=== PATIENT | male | born 1945 | race Caucasian/White ===

== ENCOUNTER 2020-08-25 12:39 | Outpatient (REF) | payer MEDICARE, OTHER, SELFPAY ==
--- NOTE | 2020-08-25 12:51 | MR_ITS ---
MRI OF THE BRAIN WITHOUT IV CONTRAST INDICATION: Dementia with behavioral disturbance. COMPARISON: Brain MRI 12/03/2013. TECHNIQUE: Multiplanar multisequence MR imaging of the brain was obtained without IV contrast. FINDINGS: There is no hydrocephalus, extra-axial surface collection, or herniation. There is global cerebral volume loss and there is mild chronic microangiopathy. The major flow voids at the skull base are preserved. There is no acute infarct on diffusion-weighted imaging. There is no intracranial hemorrhage on the gradient recalled echo acquisition. The midline structures are normal. The cerebellar tonsils are normally positioned. The cerebellum and brainstem are normal. The craniocervical junction is normal. Osseous marrow signal intensity is homogenous. The visualized soft tissues are unremarkable. IMPRESSION: - No acute intracranial findings. - There is global cerebral volume loss and there is mild chronic microangiopathy.
== END 2020-08-25 12:40 | disposition home or self-care (01) ==
LOC: HO.MRI 12:39
PROVIDERS: PCP Internal Medicine; Visit Provider Psychiatry & Neurology Neurology
DX: F03.91 Unspecified dementia, unspecified severity, with behavioral disturbance (principal)
CPT/HCPCS: 70551

== ENCOUNTER 2020-12-24 17:38 | Emergency (ER) | payer MEDICARE, SELFPAY ==
[2020-12-24 17:46] VITALS: BP 143/70; PULSE 98; RESP 18; TEMP 37.3; O2SAT 95; BMI 22.4
[2020-12-24 18:00] VITALS: BP 143/70; PULSE 98; RESP 18; TEMP 37.3; O2SAT 95
--- NOTE | 2020-12-24 18:02 | CT_ITS ---
EXAMINATION: CT HEAD WITHOUT CONTRAST CLINICAL INFORMATION: Mass or bleed ? COMPARISON: MRI dated 08/25/2020 TECHNIQUE: Contiguous axial imaging was performed from the skull base to vertex without intravenous administration of contrast. This CT examination was performed using dose optimization techniques as appropriate, variously including the following: *Automated exposure control *Adjustment of mA and/or kV according to patient size (this includes techniques or standardized protocols for targeted exams where dose is matched to indication/reason for exam; i.e. extremities or head) *Use of iterative reconstruction technique DLP: 692 mGy-cm FINDINGS: There is no evidence of acute intracranial hemorrhage or territorial infarction. No abnormal mass effect or midline shift is seen. Roach to white matter differentiation is well preserved. No extra-axial fluid collections are identified. A few foci of hypoattenuation in the subcortical and periventricular white matter are most consistent with chronic microangiopathic changes. Moderate enlargement of the ventricles, sulci, and extra-axial CSF spaces is indicative of parenchymal volume loss. The osseous structures and soft tissues are normal. The mastoid air cells and visualized portions of the paranasal sinuses are well aerated. CT/CT head/brain wo con IMPRESSION: No acute intracranial pathology. Global cerebral volume loss and mild chronic microangiopathy.
[2020-12-24 18:10] VITALS: BP 143/70; PULSE 98; RESP 16; TEMP 37.3; O2SAT 95
--- NOTE | 2020-12-24 18:14 | ECG_ITS ---
Test Reason : MEDICAL CLEAR Blood Pressure : / mmHG Vent. Rate : 064 BPM Atrial Rate : 064 BPM P-R Int : 194 ms QRS Dur : 086 ms QT Int : 412 ms P-R-T Axes : 049 -03 028 degrees QTc Int : 425 ms Normal sinus rhythm Normal ECG When compared with ECG of 31-OCT-2013 16:39, No significant change was found Referred By: Pritesh Farris Electronically Signed By:BENJAMIN STOCK
[2020-12-24 18:52] LABS: MANUAL DIFF FLAG NO
[2020-12-24 18:56] LABS: Glucose Urine UA NEG (NEG); Leukocyte Esterase Urine NEG (NEG); Nitrite Urine NEG (NEG); Specific Gravity - Urine 1.025 (1.005-1.025); Urine Blood NEG (NEG); Urine Ketones 5 MG/DL (NEG); Urine Protein NEG (NEG-TRACE)
[2020-12-24 18:57] LABS: Appearance Urine CLEAR; Color Urine YELLOW
[2020-12-24 19:01] LABS: INTERNATIONAL NORM RATIO 0.9 (0.9-1.1); Prothrombin Time 11.1 SEC (10.8-13.0)
[2020-12-24 19:04] LABS: Partial Thromboplastin Time 27.1 SEC (24.1-38.0)
[2020-12-24 19:06] LABS: Basophils Percent Auto 0.7 % (0-2); Eosinophils Absolute Auto 0.1 X10*3/uL (0.0-0.4); Eosinophils Percent Auto 1.1 % (0-4); Hematocrit 43.5 % (42-52); Hemoglobin 14.8 g/dl (14.0-18.0); Imm Gran Abs Auto 0.03 X10*3/uL (0.00-0.03); Imm Gran Pct Auto 0.7 % (0.0-0.4); Lymphocytes Absolute Auto 1.2 X10*3/uL (1.2-4.9); Lymphocytes Percent Auto 26.3 % (20-40); Mean Corpuscular Hemoglobin 30.4 pg (27.0-33.0); Mean Corpuscular Volume 89.3 fL (80-98); Mean Platelet Volume 9.5 fL (9.4-12.4); Monocytes Absolute Auto 0.4 X10*3/uL (0.1-1.2); Monocytes Percent Auto 9.6 % (2-11); Neutrophils Absolute Auto 2.8 X10*3/uL (2.0-8.3); Neutrophils Percent Auto 61.6 % (45-73); Platelet Count 216 X10*3/uL (160-400); Red Blood Count 4.87 X10*6/uL (4.60-5.80); Red Cell Distribution Width 12.5 % (11.0-16.0); White Blood Count 4.6 X10*3/uL (4.8-10.8)
[2020-12-24 19:18] LABS: Ethanol < 10 mg/dL
--- NOTE | 2020-12-24 19:18 | PC.NURSE ---
Patient in his bed resting quietly, patient disoriented, pleasant and clam, Ruma called confirmed medication/med recs completed/provider notified/pending MAR update, will continue to monitor.
[2020-12-24 19:21] LABS: Amphetamine Screen Urine Not Detected (Not Detect); Barbiturates, Urine Not Detected (Not Detect); Benzodiazepines Screen Urine Not Detected (Not Detect); Cannabinoid Screen Urine Not Detected (Not Detect); Cocaine Screen Urine Not Detected (Not Detect); Opiate Screen Urine Not Detected (Not Detect); Phencyclidine Screen Urine Not Detected (Not Detect)
--- NOTE | 2020-12-24 19:22 | XR_ITS ---
EXAMINATION: XR CHEST CLINICAL INFORMATION: Pneumonia? COMPARISON: None TECHNIQUE: 2 views of the chest were obtained. FINDINGS: There is streaky opacity in the retrocardiac left lower lobe which may represent atelectasis, aspiration, or pneumonia. Lung volumes are low. No pleural effusion or pneumothorax. Tortuous aorta. Normal heart size. Multilevel degenerative changes of the thoracolumbar spine are present. XR/XR chest 2V IMPRESSION: There is retrocardiac left lower lobe opacity which may represent atelectasis, aspiration, or pneumonia.
[2020-12-24 19:23] LABS: Alanine Aminotransferase 31 U/L (0-40); Albumin Level 4.4 g/dL (3.5-5.0); Alkaline Phosphatase 79 U/L (39-117); Anion Gap 16 (12-20); Aspartate Amino Transferase 44 U/L (5-37); Bilirubin Direct 0.4 mg/dL (0.0-0.5); Blood Urea Nitrogen 18 mg/dL (9-16); Calcium 9.2 mg/dL (8.4-10.2); Carbon Dioxide 25 mmol/L (22-29); Chloride 106 mmol/L (96-108); Creatinine Clr Calc Pharmacy 45.2; Estimated Glomerular Filt Rate 59; Glucose Random 104 mg/dL (60-115); Potassium 4.2 mmol/L (3.3-5.1); Sodium 143 mmol/L (135-145)
[2020-12-24 19:34] LABS: COVID-19 Test Negative (Negative); IDNOW Serial# 9DD0AD1C
[2020-12-24 19:45] LABS: Ammonia 43 umol/L (13-55)
--- NOTE | 2020-12-24 20:45 | ED_ITS ---
HPI - Psych General Chief Complaint: Psychiatric Symptoms Stated Complaint: CRISIS Time Seen by Provider: 12/24/20 19:22 Source: family and EMS Mode of arrival: EMS History of Present Illness HPI Narrative: Patient brought to the for worsening dementia. As per who spoke with care team consulted Nichelle and as per EMS report the past few weeks patient has been leaving the house wandering into the streets. Patient has gone to neighbor's apartment is making negative statements toward his and also going to the police station to have conversation. Denies patient being aggressive towards family or having any physical complaints. Related Data Home Medications Medication Instructions Recorded Confirmed cyanocobalamin (vitamin B-12) 1 tab PO DAILY 12/24/20 12/24/20 quetiapine 1 tab PO BID 12/24/20 12/24/20 rosuvastatin 1 tab PO DAILY 12/24/20 12/24/20 sertraline 1 tab PO DAILY 12/24/20 12/24/20 Previous Rx's Medication Instructions Recorded amoxicillin-pot clavulanate 1 tab PO Q12H 7 Days #14 tab 12/24/20 [Augmentin] azithromycin See Rx Instructions .ROUTE 12/24/20 .COMPLEX #6 tab Allergies Allergy/AdvReac Type Severity Reaction Status Date / Time bee pollen [BEE STINGS] Allergy Unknown ANAPHYLAXIS Unverified 08/07/20 14:34 simvastatin [Zocor] Allergy Unknown Verified 05/01/14 00:00 From LIPITOR Allergy Unknown LIVER Uncoded 08/07/20 14:34 BREAK DOWN Review of Systems Review of Systems: Yes all other systems are reviewed and are negative Constitutional: Constitutional: Reports as per HPI and Reports no additional constitutional complaints Eyes: Eyes: Reports as per HPI and Reports no additional eye complaints ENT: Reports system reviewed and no additional complaints, except as documented and Reports as per HPI Cardiovascular: Cardiovascular: Reports as per HPI and Reports no additional cardiovascular complaints Respiratory: Respiratory: Reports as per HPI and Reports no additional respiratory complaints Gastrointestinal: Gastrointestinal: Reports as per HPI and Reports no additional gastrointestinal complaints Genitourinary: Genitourinary: Reports no additional male genitourinary complaints and Reports as per HPI Musculoskeletal: Musculoskeletal: Reports no additional musculoskeletal complaints and Reports as per HPI Neurologic: Reports system reviewed and no additional complaints, except as documented and Reports as per HPI Psychiatric: Psychiatric: Reports no additional psychiatric complaints and Reports as per HPI [facility] Social History Social History Alcohol intake: unknown Smoking Status: Unknown if ever smoked Use of substances other than those prescribed or required for medical reasons: Unknown Substance Use Type: Unknown Advance Directives: No Advance Directives Information Provided: Yes Physical Exam Vital Signs: Vital Signs: Last Vital Signs Temp 97.6 F 12/24/20 22:01 Pulse 69 12/24/20 22:01 Resp 18 12/24/20 22:01 BP 124/63 12/24/20 22:01 Pulse Ox 96 12/24/20 22:01 Body Mass Index 22.4 Const: Other: Patient knows place, name, birthday, and president. Patient knows day and month, but not year. This is patient's baseline General: cooperative, healthy appearing, comfortable, no acute distress, well developed, alert and awake HENMT: Head: Yes normal to inspection, Yes No palpable skull fracture present, Yes normocephalic, Yes atraumatic, No Garza's sign, No contusion, No cranial bruits, No hematoma, No laceration, No occipital foramen tenderness, No palpable skull fracture and No raccoon eyes Eyes: General: appearance normal, both eyes and all related structures Neck: Neck: Yes normal visual inspection, Yes full ROM, Yes no lymphadenopathy, Yes no meningeal signs, Yes trachea midline, Yes supple and No tender Chest: Chest palpation & inspection: normal inspection of the chest and normal palpation of entire chest wall Resp: Effort & Inspection: normal respiratory effort and able to speak in complete sentences Auscultation: clear to auscultation bilaterally Cardio: Jugular venous distension: no JVD Heart sounds: S1 normal heart sound present and S2 normal heart sound present GI: Inspection: Yes normal to inspection and No abdominal wall ecchymosis Palpation (GI): Soft to palpation, not firm, nontender, no guarding and not rigid : General: No CVA tenderness and Yes no CVA tenderness Back/Spine/Pelvis: Back: no CVA tenderness, No CVA tenderness and No back tenderness Skin: General skin exam: no rashes or lesions noted and elasticity normal Neuro: Other: Patient is at baseline mentally. Negative for any neuro deficit. Negative for slurred speech. Negative facial droop. Negative for any drift. All extremities and equal strength. Normal gait General: no meningeal signs and CN's II-XI intact bilaterally Cranial nerves: Yes CN's II-XII intact bilaterally Extrem: General: Yes normal to inspection and Yes full ROM Psych: Appearance: grossly normal, well kempt and not disheveled Course Course Course Narrative: Will do basic labs include pneumonia and UA to rule out any sort and cephalopathy or UTI. Patient have head CT scan. Patient has baseline EKG. Patient does not need troponin. This is not a cardiac event. Most likely this is patient's worsening dementia. Reevaluation(s) Reevaluation #1: Patient UA negative for UTI. Labs came back normal. Ammonia is negative. Negative for elevated white blood cell count. Head CT came back negative for any mass or stroke. Chest x-ray shows possible pneumonia. Alcohol and U tox came back negative. Care team consulted joseline Steward and case management Maribell spoke with and son who states they do not want patient to be placed in any facility or [facility]. They feel comfortable and would like patient to be returned home. Maribell and Nichelle found external services to help with caring for patient. Once again and son does not want patient to be placed in any facility or [facility]. Plan is to discharge after EKG. Time: 21:17 MDM - Psych MDM Narrative Medical decision making narrative: Dementia. Pneumonia Lab Data Result diagrams: 12/24/20 18:42 12/24/20 18:42 Labs: Lab Results 12/24/20 12/24/20 12/24/20 Range/Units 18:42 18:42 18:42 WBC 4.6 L (4.8-10.8) X10*3/uL RBC 4.87 (4.60-5.80) X10*6/uL Hgb 14.8 (14.0-18.0) g/dl Hct 43.5 (42-52) % MCV 89.3 (80-98) fL MCH 30.4 (27.0-33.0) pg MCHC 34.0 (31.0-36.0) g/dl RDW 12.5 (11.0-16.0) % Plt Count 216 (160-400) X10*3/uL MPV 9.5 (9.4-12.4) fL Immature Gran % (Auto) 0.7 H (0.0-0.4) % Neut % (Auto) 61.6 (45-73) % Lymph % (Auto) 26.3 (20-40) % Winston % (Auto) 9.6 (2-11) % Eos % (Auto) 1.1 (0-4) % Baso % (Auto) 0.7 (0-2) % Lymph # (Auto) 1.2 (1.2-4.9) X10*3/uL Winston # (Auto) 0.4 (0.1-1.2) X10*3/uL Eos # (Auto) 0.1 (0.0-0.4) X10*3/uL Baso # (Auto) 0.0 (0.0-0.2) X10*3/uL Abs Immat Gran (auto) 0.03 (0.00-0.03) X10*3/uL Absolute Neuts (auto) 2.8 (2.0-8.3) X10*3/uL Absolute Nucleated RBC 0.000 (0.0-0.012) X10*3/uL Nucleated RBC % (auto) 0.0 (0.0-0.2) /100WBC PT 11.1 (10.8-13.0) SEC INR 0.9 (0.9-1.1) APTT 27.1 (24.1-38.0) SEC Sodium 143 (135-145) mmol/L Potassium 4.2 (3.3-5.1) mmol/L Chloride 106 (96-108) mmol/L Carbon Dioxide 25 (22-29) mmol/L Anion Gap 16 (12-20) BUN 18 H (9-16) mg/dL Creatinine 1.20 (0.5-1.4) mg/dL Estim Creat Clear Calc 45.2 Estimated GFR 59 Random Glucose 104 (60-115) mg/dL Calcium 9.2 (8.4-10.2) mg/dL Total Bilirubin 1.0 (0.0-1.0) mg/dL Direct Bilirubin 0.4 (0.0-0.5) mg/dL AST 44 H (5-37) U/L ALT 31 (0-40) U/L Alkaline Phosphatase 79 (39-117) U/L Ammonia (13-55) umol/L Total Protein 7.0 (6.5-8.0) g/dL Albumin 4.4 (3.5-5.0) g/dL Urine Color Urine Appearance Urine pH (5.0-8.0) Ur Specific [place] (1.005-1.025) Urine Protein (NEG-TRACE) MG/DL Urine Glucose (UA) (NEG) MG/DL Urine Ketones (NEG) MG/DL Urine Blood (NEG) Urine Nitrite (NEG) Ur Leukocyte Esterase (NEG) Urine Opiates Screen (Not Detect) Ur Barbiturates Screen (Not Detect) Ur Phencyclidine Scrn (Not Detect) Ur Amphetamines Screen (Not Detect) U Benzodiazepines Scrn (Not Detect) Urine Cocaine Screen (Not Detect) U Marijuana (THC) Screen (Not Detect) Ethyl Alcohol mg/dL COVID-19 (SAYDA) (Negative) COVID-19 Clin Com 12/24/20 12/24/20 12/24/20 Range/Units 18:42 18:50 18:53 WBC (4.8-10.8) X10*3/uL RBC (4.60-5.80) X10*6/uL Hgb (14.0-18.0) g/dl Hct (42-52) % MCV (80-98) fL MCH (27.0-33.0) pg MCHC (31.0-36.0) g/dl RDW (11.0-16.0) % Plt Count (160-400) X10*3/uL MPV (9.4-12.4) fL Immature Gran % (Auto) (0.0-0.4) % Neut % (Auto) (45-73) % Lymph % (Auto) (20-40) % Winston % (Auto) (2-11) % Eos % (Auto) (0-4) % Baso % (Auto) (0-2) % Lymph # (Auto) (1.2-4.9) X10*3/uL Winston # (Auto) (0.1-1.2) X10*3/uL Eos # (Auto) (0.0-0.4) X10*3/uL Baso # (Auto) (0.0-0.2) X10*3/uL Abs Immat Gran (auto) (0.00-0.03) X10*3/uL Absolute Neuts (auto) (2.0-8.3) X10*3/uL Absolute Nucleated RBC (0.0-0.012) X10*3/uL Nucleated RBC % (auto) (0.0-0.2) /100WBC PT (10.8-13.0) SEC INR (0.9-1.1) APTT (24.1-38.0) SEC Sodium (135-145) mmol/L Potassium (3.3-5.1) mmol/L Chloride (96-108) mmol/L Carbon Dioxide (22-29) mmol/L Anion Gap (12-20) BUN (9-16) mg/dL Creatinine (0.5-1.4) mg/dL Estim Creat Clear Calc Estimated GFR Random Glucose (60-115) mg/dL Calcium (8.4-10.2) mg/dL Total Bilirubin (0.0-1.0) mg/dL Direct Bilirubin (0.0-0.5) mg/dL AST (5-37) U/L ALT (0-40) U/L Alkaline Phosphatase (39-117) U/L Ammonia (13-55) umol/L Total Protein (6.5-8.0) g/dL Albumin (3.5-5.0) g/dL Urine Color YELLOW Urine Appearance CLEAR Urine pH 6.0 (5.0-8.0) Ur Specific [place] 1.025 (1.005-1.025) Urine Protein NEG (NEG-TRACE) MG/DL Urine Glucose (UA) NEG (NEG) MG/DL Urine Ketones 5 (NEG) MG/DL Urine Blood NEG (NEG) Urine Nitrite NEG (NEG) Ur Leukocyte Esterase NEG (NEG) Urine Opiates Screen Not Detected (Not Detect) Ur Barbiturates Screen Not Detected (Not Detect) Ur Phencyclidine Scrn Not Detected (Not Detect) Ur Amphetamines Screen Not Detected (Not Detect) U Benzodiazepines Scrn Not Detected (Not Detect) Urine Cocaine Screen Not Detected (Not Detect) U Marijuana (THC) Screen Not Detected (Not Detect) Ethyl Alcohol < 10 mg/dL COVID-19 (SAYDA) (Negative) COVID-19 Clin Com 12/24/20 12/24/20 Range/Units 19:08 19:12 WBC (4.8-10.8) X10*3/uL RBC (4.60-5.80) X10*6/uL Hgb (14.0-18.0) g/dl Hct (42-52) % MCV (80-98) fL MCH (27.0-33.0) pg MCHC (31.0-36.0) g/dl RDW (11.0-16.0) % Plt Count (160-400) X10*3/uL MPV (9.4-12.4) fL Immature Gran % (Auto) (0.0-0.4) % Neut % (Auto) (45-73) % Lymph % (Auto) (20-40) % Winston % (Auto) (2-11) % Eos % (Auto) (0-4) % Baso % (Auto) (0-2) % Lymph # (Auto) (1.2-4.9) X10*3/uL Winston # (Auto) (0.1-1.2) X10*3/uL Eos # (Auto) (0.0-0.4) X10*3/uL Baso # (Auto) (0.0-0.2) X10*3/uL Abs Immat Gran (auto) (0.00-0.03) X10*3/uL Absolute Neuts (auto) (2.0-8.3) X10*3/uL Absolute Nucleated RBC (0.0-0.012) X10*3/uL Nucleated RBC % (auto) (0.0-0.2) /100WBC PT (10.8-13.0) SEC INR (0.9-1.1) APTT (24.1-38.0) SEC Sodium (135-145) mmol/L Potassium (3.3-5.1) mmol/L Chloride (96-108) mmol/L Carbon Dioxide (22-29) mmol/L Anion Gap (12-20) BUN (9-16) mg/dL Creatinine (0.5-1.4) mg/dL Estim Creat Clear Calc Estimated GFR Random Glucose (60-115) mg/dL Calcium (8.4-10.2) mg/dL Total Bilirubin (0.0-1.0) mg/dL Direct Bilirubin (0.0-0.5) mg/dL AST (5-37) U/L ALT (0-40) U/L Alkaline Phosphatase (39-117) U/L Ammonia 43 (13-55) umol/L Total Protein (6.5-8.0) g/dL Albumin (3.5-5.0) g/dL Urine Color Urine Appearance Urine pH (5.0-8.0) Ur Specific [place] (1.005-1.025) Urine Protein (NEG-TRACE) MG/DL Urine Glucose (UA) (NEG) MG/DL Urine Ketones (NEG) MG/DL Urine Blood (NEG) Urine Nitrite (NEG) Ur Leukocyte Esterase (NEG) Urine Opiates Screen (Not Detect) Ur Barbiturates Screen (Not Detect) Ur Phencyclidine Scrn (Not Detect) Ur Amphetamines Screen (Not Detect) U Benzodiazepines Scrn (Not Detect) Urine Cocaine Screen (Not Detect) U Marijuana (THC) Screen (Not Detect) Ethyl Alcohol mg/dL COVID-19 (SAYDA) Negative (Negative) COVID-19 Clin Com See Note ECG Data Interpretation: Normal sinus rhythm. Ventricular rate 64. Pr interval 194. QRS 86. QTC 425. Negative STEMI. Normal EKG Discharge Plan Discharge Clinical Impression: Dementia, Pneumonia Patient Disposition: Home, Self-Care Instructions: Dementia (ED), Pneumonia (ED) Additional Instructions: Return to the ED for slurred speech, loss of vision, paralysis of extremity, chest pain, shortness of breath, headache, weakness, altered mental status, lethargic, or any other concerning symptoms Prescriptions: New amoxicillin-pot clavulanate [Augmentin] 875-125 mg tablet 1 tab PO Q12H 7 Days Qty: 14 RF: 0 azithromycin 250 mg tablet See Rx Instructions .ROUTE .COMPLEX Qty: 6 RF: 0 No Action quetiapine 25 mg tablet 1 tab PO BID RF: 0 sertraline 100 mg tablet 1 tab PO DAILY RF: 0 cyanocobalamin (vitamin B-12) 1,000 mcg tablet 1 tab PO DAILY RF: 0 rosuvastatin 10 mg tablet 1 tab PO DAILY RF: 0 Interventions: ED Discharge Assessment Last Done: 12/25/20 06:28 Discharge Date/Time: 12/25/20 06:45 Print Language: Georgian
--- NOTE | 2020-12-24 20:51 | MHC.CARE ---
CARE Team reaches out to pt's at the request of ANDRÉS Jonas in order to gather additional information regarding concerns which led up to pt coming to the ED. , Ruma and son, Kayode provide information. Today, pt went and knocked on the neighbor's door, was confused and not making sense, speaking poorly of his . He has reportedly been badgering spouse non stop, and following her from room to room. He has a fixed belief that she left him for a long period of time in the past, and this is not based in reality. Ruma states that last week, pt walked several miles away to the local police department in inclement weather. She states that she has since filled out a questionnaire and provided his picture to police in case he continues to elope. CARE Team offers explanation of geriatric psych unit, and family not interested in this level of care at this time, stating that they want pt to return home. They have many questions about senior care care and financial planning. CARE Team speaks with Maribell from case management, who agrees to call the family in order to discuss resources. Ruma is planning on contacting Dr. Gutierrez tomorrow regarding medication adjustments.
[2020-12-24 22:01] VITALS: BP 124/63; PULSE 69; RESP 18; TEMP 36.4; O2SAT 96
[2020-12-24] MEDS: Azithromycin 500 MG TABLET PO (22:26)
[2020-12-24] MEDS: QUEtiapine Fumarate 25 MG TABLET PO (22:26)
[2020-12-24] MEDS: Amoxicillin/Potassium Clav 875 MG TABLET PO (22:26)
--- NOTE | 2020-12-24 22:30 | PC.NURSE ---
Patient was informed that he has a pneumonia, abt administered as ordered with scheduled seroquel 25 mg, patient family aware will come to worm picker patient tomorrow at 5 am, denied distress at this time, will continue to monitor.
== END 2020-12-25 06:45 | disposition home or self-care (01) ==
PROVIDERS: Physician Assistant; Emergency Provider Emergency Medicine
DX: F03.90 Unspecified dementia, unspecified severity, without behavioral disturbance, psychotic disturbance, mood disturbance, and anxiety (principal); J18.9 Pneumonia, unspecified organism; Z20.822 Contact with and (suspected) exposure to COVID-19; Z79.899 Other long term (current) drug therapy
CPT/HCPCS: 36415; 70450; 71046; 80053; 80076; 80307; 80320; 81003; 82140; 82248; 85025; 85610; 85730; 87635; 93005; 99285

== ENCOUNTER 2021-12-31 11:29 | Emergency (ER) | payer MEDICARE, SELFPAY ==
--- NOTE | ~2021-12-31 | XR_ITS ---
EXAMINATION: XR ABDOMEN KUB CLINICAL INDICATION: Constipation COMPARISON: None TECHNIQUE: AP view of the abdomen. FINDINGS: Normal bowel gas pattern. No dilated loops of bowel. Scattered gas and stool throughout the colon. No significant abnormal colonic stool burden. Lung bases are clear. No acute osseous abnormality with diffuse degenerative changes of the spine. No suspicious calcification. XR/XR KUB IMPRESSION: Normal bowel gas pattern without significant abnormal colonic stool burden.
[2021-12-31 12:21] VITALS: BP 136/73; PULSE 71; RESP 18; TEMP 36.8; O2SAT 96; BMI 25.6
[2021-12-31 13:02] LABS: COVID-19 Test Negative (Negative)
[2021-12-31 13:09] LABS: Alanine Aminotransferase 18 U/L (0-40); Albumin Level 4.3 g/dL (3.5-5.0); Alkaline Phosphatase 83 U/L (39-117); Anion Gap 20 (12-20); Aspartate Amino Transferase 32 U/L (5-37); Bilirubin Total 0.8 mg/dL (0.0-1.0); Blood Urea Nitrogen 15 mg/dL (9-16); Calcium 9.4 mg/dL (8.4-10.2); Carbon Dioxide 22 mmol/L (22-29); Chloride 99 mmol/L (96-108); Creatinine Clr Calc Pharmacy 35.7; Estimated Glomerular Filt Rate 50; Glucose Random 102 mg/dL (60-115); Potassium 3.7 mmol/L (3.3-5.1); Sodium 137 mmol/L (135-145); Total Protein 7.1 g/dL (6.5-8.0)
== END 2021-12-31 17:00 | disposition left against medical advice (07) ==
PROVIDERS: Emergency Provider Emergency Medicine; PCP Internal Medicine
DX: K59.00 Constipation, unspecified (principal); Z20.822 Contact with and (suspected) exposure to COVID-19; Z79.899 Other long term (current) drug therapy
CPT/HCPCS: 74018; 80053; 87635; 99281; 99283

== ENCOUNTER 2022-01-01 09:58 | Emergency (ER) | payer MEDICARE, SELFPAY ==
--- NOTE | ~2022-01-01 | CT_ITS ---
EXAMINATION: CT HEAD WITHOUT CONTRAST CLINICAL INFORMATION: Altered mental status COMPARISON: Previous head CT scans most recent December 2020 and brain MRI most recent August 2020 TECHNIQUE: Contiguous axial imaging was performed from the skull base to vertex without intravenous administration of contrast. This CT examination was performed using dose optimization techniques as appropriate, variously including the following: *Automated exposure control *Adjustment of mA and/or kV according to patient size (this includes techniques or standardized protocols for targeted exams where dose is matched to indication/reason for exam; i.e. extremities or head) *Use of iterative reconstruction technique DLP: 655 mGy-cm FINDINGS: There is no evidence of an extra-axial collection. There is no evidence of intra-axial or extra-axial hemorrhage. The ventricles and extra-axial CSF spaces are prominent suggestive of generalized atrophy. There is nonspecific periventricular white matter disease. No mass, mass effect or infarct is seen. Review of bone windows is normal. No skull fracture is seen. Visualized paranasal sinuses, mastoid air cells and middle ears are clear. CT/CT head/brain wo con IMPRESSION: No acute findings. Generalized atrophy and nonspecific periventricular white matter disease similar to previous exams.
--- NOTE | ~2022-01-01 | CT_ITS ---
EXAMINATION: CT ABDOMEN AND PELVIS WITHOUT CONTRAST CLINICAL INFORMATION: Constipation COMPARISON: Previous KUB from yesterday TECHNIQUE: Multidetector volumetric imaging was performed from the superior aspect of the liver through the pubic symphysis. Sagittal and coronal reformatted images were obtained on the technologist's workstation. This CT examination was performed using dose optimization techniques as appropriate, variously including the following: *Automated exposure control *Adjustment of mA and/or kV according to patient size (this includes techniques or standardized protocols for targeted exams where dose is matched to indication/reason for exam; i.e. extremities or head) *Use of iterative reconstruction technique Exam is limited due to motion artifact. DLP: 572 mGy-cm FINDINGS: LUNG BASES: The visualized lung bases are unremarkable. LIVER, GALLBLADDER, AND BILIARY TREE: The liver is normal in size, shape, and attenuation. No focal hepatic lesion or biliary ductal dilatation is present. The gallbladder is unremarkable with no evidence of radiopaque gallstones, gallbladder wall thickening, or obvious pericholecystic inflammatory changes. PANCREAS: Unremarkable. SPLEEN: Unremarkable. ADRENAL GLANDS: Unremarkable. KIDNEYS AND URETERS: The kidneys are normal in size, shape, and attenuation. No hydronephrosis, hydroureter, or calculi seen. No perinephric stranding. BLADDER: Unremarkable. GASTROINTESTINAL TRACT: There is diverticulosis of the colon. No evidence of diverticulitis is seen. There is stool in the distal colon suggestive of constipation. ABDOMINAL WALL: There is a small left inguinal hernia containing fat. LYMPH NODES: Normal. VASCULAR: There is evidence of atherosclerotic disease. PELVIC VISCERA: Unremarkable. OSSEOUS STRUCTURES: There are degenerative changes of the spine. CT/CT abdomen pelvis wo con IMPRESSION: Limited exam due to motion artifact. Diverticulosis. No evidence of diverticulitis. Stool in the distal colon suggestive of constipation. No evidence of obstruction. Left inguinal hernia containing fat. Fleischner guidelines were followed.
[2022-01-01 10:05] VITALS: BP 144/84
[2022-01-01 10:07] VITALS: BP 134/66; PULSE 63; RESP 16; TEMP 36.8; O2SAT 99; BMI 26.5
[2022-01-01 10:17] VITALS: BP 134/66; PULSE 63; RESP 16; TEMP 36.8; O2SAT 99
--- NOTE | 2022-01-01 10:21 | PC.NURSE ---
WENT IN TO DO PATIENT ASSESSMENT, PT BECAME COMBATIVE AND WOULD NOT LET US CHANGE IN TO HOSPITAL ATTIRE FOR PROVIDER EXAM DR STONE IS AWARE AND WILL CONTACT PT FAMILY
--- NOTE | 2022-01-01 11:03 | ED.GENADULT ---
HPI - General Adult General Chief complaint: General Medical Stated complaint: ?constipation Time Seen by Provider: 01/01/22 10:04 History of Present Illness HPI narrative: Patient is a 76-year-old male with a history of advanced dementia. Sent in by family because of decreased p.o. intake. No bowel movement for last 2 weeks. Patient was seen in the emergency department yesterday had labs drawn. Subsequently left prior to being evaluated by provider. Patient sent in by ambulance this time. Related Data Home Medications Medication Instructions Recorded Confirmed cyanocobalamin (vitamin B-12) 1 tab PO DAILY 12/24/20 12/24/20 1,000 mcg tablet quetiapine 25 mg tablet 1 tab PO BID 12/24/20 12/24/20 rosuvastatin 10 mg tablet 1 tab PO DAILY 12/24/20 12/24/20 sertraline 100 mg tablet 1 tab PO DAILY 12/24/20 12/24/20 Previous Rx's Medication Instructions Recorded amoxicillin 875 mg-potassium 1 tab PO Q12H 7 Days #14 tab 12/24/20 clavulanate 125 mg tablet (Augmentin) azithromycin 250 mg tablet See Rx Instructions .ROUTE 12/24/20 .COMPLEX #6 tab polyethylene glycol 3350 17 17 g PO BID 7 Days #238 g 01/01/22 gram/dose oral powder (Miralax) Allergies Allergy/AdvReac Type Severity Reaction Status Date / Time bee pollen [BEE STINGS] Allergy Unknown ANAPHYLAXIS Unverified 08/07/20 14:34 simvastatin [Zocor] Allergy Unknown Verified 05/01/14 00:00 From LIPITOR Allergy Unknown LIVER Uncoded 08/07/20 14:34 BREAK DOWN Review of Systems Review of Systems: Unable to obtain review of systems secondary to patient's condition [facility] Past Medical History Attestation statement: The following information was validated with the patient. Medical History Alzheimer disease Social History Social History Alcohol intake: unknown Substance Use Type: Unknown Advance Directives: No Advance Directives Information Provided: No Medical Decision Making MDM Narrative Medical decision making narrative: CT scan of the head was grossly negative for any acute changes CT scan of the abdomen show constipation. Patient's CBC is normal. Chemistry was checked yesterday they appeared normal as well. Mental status is baseline. Explained to family about using MiraLax versus digital disimpaction patient family wanted us to try digital disimpaction. Will discharge patient home. Follow up on an outpatient basis. Attempted manual disimpaction there is no stool that I can palpate. A Fleet enema was given moderate results will discharge patient home with MiraLax. Follow up on an outpatient basis. In stable condition. Lab Data Result diagrams: 01/01/22 13:43 01/01/22 13:43 Labs: Lab Results 01/01/22 Range/Units 13:43 WBC 4.3 L (4.8-10.8) X10*3/uL RBC 5.14 (4.60-5.80) X10*6/uL Hgb 15.2 (14.0-18.0) g/dl Hct 44.3 (42.0-52.0) % MCV 86.2 (80.0-98.0) fL MCH 29.6 (27.0-33.0) pg MCHC 34.3 (31.0-36.0) g/dl RDW 13.5 (11.0-16.0) % Plt Count 167 (160-400) X10*3/uL MPV 9.1 L (9.4-12.4) fL Immature Gran % (Auto) 0.2 (0.0-0.4) % Neut % (Auto) 62.9 (45-73) % Lymph % (Auto) 23.1 (20-40) % [place] % (Auto) 11.5 H (2-11) % Eos % (Auto) 1.8 (0-4) % Baso % (Auto) 0.5 (0-2) % Lymph # (Auto) 1.0 L (1.2-4.9) X10*3/uL [place] # (Auto) 0.5 (0.1-1.2) X10*3/uL Eos # (Auto) 0.1 (0.0-0.4) X10*3/uL Baso # (Auto) 0.0 (0.0-0.2) X10*3/uL Abs Immat Gran (auto) 0.01 (0.00-0.03) X10*3/uL Absolute Neuts (auto) 2.7 (2.0-8.3) x10*3/uL Absolute Nucleated RBC 0.000 (0.0-0.012) X10*3/uL Nucleated RBC % (auto) 0.0 (0.0-0.2) /100WBC Discharge Plan Discharge Clinical Impression: Constipation, Dementia Patient Disposition: Home, Self-Care Instructions: Constipation (DC), Dementia (ED) Prescriptions: New polyethylene glycol 3350 [Miralax] 17 gram/dose powder 17 g PO BID 7 Days Qty: 238 0RF No Action quetiapine 25 mg tablet 1 tab PO BID 0RF sertraline 100 mg tablet 1 tab PO DAILY 0RF cyanocobalamin (vitamin B-12) 1,000 mcg tablet 1 tab PO DAILY 0RF rosuvastatin 10 mg tablet 1 tab PO DAILY 0RF amoxicillin-pot clavulanate [Augmentin] 875-125 mg tablet 1 tab PO Q12H 7 Days Qty: 14 0RF azithromycin 250 mg tablet See Rx Instructions .ROUTE .COMPLEX Qty: 6 0RF Rx Instructions: take 500 mg today (day 1), then 250 mg for 4 days (days 2-5) Referrals: Kenroy Walker MD [Primary Care Provider] - 2 days
[2022-01-01 13:46] LABS: MANUAL DIFF FLAG NO
[2022-01-01 13:51] LABS: Basophils Percent Auto 0.5 % (0-2); Eosinophils Absolute Auto 0.1 X10*3/uL (0.0-0.4); Eosinophils Percent Auto 1.8 % (0-4); Hematocrit 44.3 % (42.0-52.0); Hemoglobin 15.2 g/dl (14.0-18.0); Imm Gran Abs Auto 0.01 X10*3/uL (0.00-0.03); Imm Gran Pct Auto 0.2 % (0.0-0.4); Lymphocytes Percent Auto 23.1 % (20-40); Mean Corpuscular HGB Conc 34.3 g/dl (31.0-36.0); Mean Corpuscular Hemoglobin 29.6 pg (27.0-33.0); Mean Corpuscular Volume 86.2 fL (80.0-98.0); Mean Platelet Volume 9.1 fL (9.4-12.4); Monocytes Absolute Auto 0.5 X10*3/uL (0.1-1.2); Monocytes Percent Auto 11.5 % (2-11); Neutrophils Absolute Auto 2.7 x10*3/uL (2.0-8.3); Neutrophils Percent Auto 62.9 % (45-73); Platelet Count 167 X10*3/uL (160-400); Red Blood Count 5.14 X10*6/uL (4.60-5.80); Red Cell Distribution Width 13.5 % (11.0-16.0); White Blood Count 4.3 X10*3/uL (4.8-10.8)
[2022-01-01] MEDS: 0.9 % Sodium Chloride 1,000 ML 999 ML IV (13:52)
[2022-01-01] MEDS: Sodium Phosphate,Mono-Dibasic 133 ML ENEMA PR ×2 (13:52→16:11)
--- NOTE | 2022-01-01 13:53 | PC.NURSE ---
PT HAD BEEN UNCOOPERATIVE UP TO THIS POINT, IS NOW AT BEDSIDE AND PT IS ALLOWING CARE
[2022-01-01 14:56] VITALS: BP 145/69; PULSE 65; RESP 14; O2SAT 99
== END 2022-01-01 16:48 | disposition home or self-care (01) ==
PROVIDERS: Emergency Provider Emergency Medicine Emergency Medical Services; PCP Internal Medicine
DX: K59.00 Constipation, unspecified (principal); G30.9 Alzheimer's disease, unspecified; F02.80 Dementia in other diseases classified elsewhere, unspecified severity, without behavioral disturbance, psychotic disturbance, mood disturbance, and anxiety
CPT/HCPCS: 36415; 70450; 74176; 85025; 96360; 99284

== ENCOUNTER 2022-03-03 16:57 | Emergency (ER) | payer MEDICARE, SELFPAY ==
[2022-03-03] VITALS (7 sets, daily range): BP systolic 99–168; BP diastolic 54–98; PULSE 68–86; RESP 16–22; TEMP 37.1–37.2; O2SAT 94–97; BMI 22.4
--- NOTE | ~2022-03-03 | XR_ITS ---
EXAMINATION: CHEST 2 VIEWS CLINICAL INFORMATION: mental status change . COMPARISON: 12/24/2020. TECHNIQUE: PA and lateral views of the chest obtained. FINDINGS: The lungs are hypoexpanded with basilar markings more suggestive of atelectasis or scarring. No superimposed focal infiltrate, effusion, edema, or pneumothorax. Cardiac and mediastinal silhouettes are within normal limits for technique. No acute bony abnormality seen with degenerative changes in the spine and shoulders. Bone anchors in both shoulders. XR/XR chest 2V IMPRESSION: Hypoexpanded with chronic appearing changes bilaterally but no acute superimposed process.
--- NOTE | 2022-03-03 17:52 | ECG_ITS ---
Test Reason : alt mental Blood Pressure : / mmHG Vent. Rate : 075 BPM Atrial Rate : 075 BPM P-R Int : 218 ms QRS Dur : 084 ms QT Int : 388 ms P-R-T Axes : 058 -01 042 degrees QTc Int : 433 ms Sinus rhythm with 1st degree A-V block Otherwise normal ECG When compared with ECG of 24-DEC-2020 21:40, No significant change was found Referred By: Lars Larsen Electronically Signed By:Maurisio Petersen
--- NOTE | 2022-03-03 17:52 | ED.AMS ---
HPI - Altered Mental Status General Chief Complaint: Altered Mental Status <Lars Larsen MD - Last Filed: 03/03/22 21:14> Stated Complaint: INCR CONFUSION,H/O ALZ PER FAMILY <Lars Larsen MD - Last Filed: 03/03/22 21:14> Time Seen by Provider: 03/03/22 17:32 <Lars Larsen MD - Last Filed: 03/03/22 21:14> Source: patient, family, EMS and old records reviewed <Lars Larsen MD - Last Filed: 03/03/22 21:14> Mode of arrival: EMS <Lars Larsen MD - Last Filed: 03/03/22 21:14> History of Present Illness HPI narrative: Increased confusion at home. Patient has a history of significant dementia. He lives at home with his who typically takes care of him. Today, he became somewhat agitated and insisted upon leaving the house without a clear goal. His states that he was agitated but not violent. He is unable to state why. His could not redirect him. She was eventually able to talk him into going to a friend's house. She called EMS to take him to the emergency department out of concern for danger to himself. The patient himself has difficulty expressing issues but denies any complaints. He is unable to remember his 's name. The been no recent health status changes per his . No recent fevers chills or cough. No change in appetite. He has been eating and drinking at baseline. He was seen in December with a change of mental status which was thought at that time due to pain pneumonia found on x-ray. <Lars Larsen MD - Last Filed: 03/03/22 21:14> Related Data Home Medications: Home Medications Medication Instructions Recorded Confirmed cyanocobalamin (vitamin B-12) 1 tab PO DAILY 12/24/20 03/04/22 1,000 mcg tablet sertraline 100 mg tablet 1 tab PO DAILY 12/24/20 03/04/22 folic acid 1 mg tablet 1 tab PO DAILY 03/04/22 03/04/22 quetiapine 50 mg tablet 50 mg PO DAILY 03/04/22 03/04/22 quetiapine 50 mg tablet 100 mg PO DAILY@1500 03/04/22 03/04/22 rosuvastatin 20 mg tablet 1 tab PO DAILY@1500 03/04/22 03/04/22 thiamine HCl (vitamin B1) 100 mg 1 tab PO DAILY 03/04/22 03/04/22 tablet <Lars Larsen MD - Last Filed: 03/03/22 21:14> Allergies/Adverse Reactions: Allergies Allergy/AdvReac Type Severity Reaction Status Date / Time bee pollen [BEE STINGS] Allergy Unknown ANAPHYLAXIS Unverified 08/07/20 14:34 simvastatin [Zocor] Allergy Unknown Verified 05/01/14 00:00 From LIPITOR Allergy Unknown LIVER Uncoded 08/07/20 14:34 BREAK DOWN <Lars Larsen MD - Last Filed: 03/03/22 21:14> Review of Systems Constitutional: Comments: No fevers or chills <Lars Larsen MD - Last Filed: 03/03/22 21:14> Cardiovascular: Comments: No chest pain <Lars Larsen MD - Last Filed: 03/03/22 21:14> Respiratory: Comments: No cough or difficulty breathing <Lars Larsen MD - Last Filed: 03/03/22 21:14> Gastrointestinal: Comments: No nausea vomiting or diarrhea. Good appetite <Lars Larsen MD - Last Filed: 03/03/22 21:14> Genitourinary: Comments: No change in urination <Lars Larsen MD - Last Filed: 03/03/22 21:14> Neurologic: Comments: No focal deficits and no difficulty ambulating <Lars Larsen MD - Last Filed: 03/03/22 21:14> COUNT INCLUDES THE [facility] Past Medical History Medical History: Medical History Alzheimer disease <Lars Larsen MD - Last Filed: 03/03/22 21:14> Social History Social History: Social History Alcohol intake: unknown Patient Tobacco Use Status: Refuse Tobacco use screen Use of substances other than those prescribed or required for medical reasons: Refusing to respond Substance Use Type: Unknown Advance Directives: No Advance Directives Information Provided: No <Lars Larsen MD - Last Filed: 03/03/22 21:14> Physical Exam ED Vital Signs: Vital Signs - 24 hr 03/03/22 17:48 03/03/22 20:31 03/03/22 22:27 Temperature 98.9 F 98.8 F Pulse Rate 80 83 82 Respiratory Rate 16 16 20 Blood Pressure 168/98 H 132/79 167/85 H Pulse Oximetry 95 96 97 03/03/22 22:48 03/03/22 23:03 03/03/22 23:18 Temperature Pulse Rate 74 72 68 Respiratory Rate 22 H 19 19 Blood Pressure 125/62 113/57 L 106/58 L Pulse Oximetry 95 95 94 03/03/22 23:36 03/04/22 00:41 03/04/22 01:15 Temperature Pulse Rate 68 62 64 Respiratory Rate 18 17 17 Blood Pressure 99/54 L 110/53 L 110/50 L Pulse Oximetry 94 92 95 03/04/22 02:59 03/04/22 05:20 03/04/22 07:22 Temperature 97.4 F Pulse Rate 62 58 55 Respiratory Rate 16 17 16 Blood Pressure 103/49 L 107/59 L 103/54 L Pulse Oximetry 94 94 95 BMI result Body Mass Index 22.4 <Lars Larsen MD - Last Filed: 03/03/22 21:14> Vital Signs - 24 hr 03/03/22 17:48 03/03/22 20:31 03/03/22 22:27 Temperature 98.9 F 98.8 F Pulse Rate 80 83 82 Respiratory Rate 16 16 20 Blood Pressure 168/98 H 132/79 167/85 H Pulse Oximetry 95 96 97 03/03/22 22:48 03/03/22 23:03 03/03/22 23:18 Temperature Pulse Rate 74 72 68 Respiratory Rate 22 H 19 19 Blood Pressure 125/62 113/57 L 106/58 L Pulse Oximetry 95 95 94 03/03/22 23:36 03/04/22 00:41 03/04/22 01:15 Temperature Pulse Rate 68 62 64 Respiratory Rate 18 17 17 Blood Pressure 99/54 L 110/53 L 110/50 L Pulse Oximetry 94 92 95 03/04/22 02:59 03/04/22 05:20 03/04/22 07:22 Temperature 97.4 F Pulse Rate 62 58 55 Respiratory Rate 16 17 16 Blood Pressure 103/49 L 107/59 L 103/54 L Pulse Oximetry 94 94 95 BMI result Body Mass Index 22.4 <Aidee Lance MD - Last Filed: 03/03/22 22:17> Vital Signs - 24 hr 03/03/22 17:48 03/03/22 20:31 03/03/22 22:27 Temperature 98.9 F 98.8 F Pulse Rate 80 83 82 Respiratory Rate 16 16 20 Blood Pressure 168/98 H 132/79 167/85 H Pulse Oximetry 95 96 97 03/03/22 22:48 03/03/22 23:03 03/03/22 23:18 Temperature Pulse Rate 74 72 68 Respiratory Rate 22 H 19 19 Blood Pressure 125/62 113/57 L 106/58 L Pulse Oximetry 95 95 94 03/03/22 23:36 03/04/22 00:41 03/04/22 01:15 Temperature Pulse Rate 68 62 64 Respiratory Rate 18 17 17 Blood Pressure 99/54 L 110/53 L 110/50 L Pulse Oximetry 94 92 95 03/04/22 02:59 03/04/22 05:20 03/04/22 07:22 Temperature 97.4 F Pulse Rate 62 58 55 Respiratory Rate 16 17 16 Blood Pressure 103/49 L 107/59 L 103/54 L Pulse Oximetry 94 94 95 BMI result Body Mass Index 22.4 <Ruma Howard MD - Last Filed: 03/03/22 23:47> Vital Signs - 24 hr 03/03/22 17:48 03/03/22 20:31 03/03/22 22:27 Temperature 98.9 F 98.8 F Pulse Rate 80 83 82 Respiratory Rate 16 16 20 Blood Pressure 168/98 H 132/79 167/85 H Pulse Oximetry 95 96 97 03/03/22 22:48 03/03/22 23:03 03/03/22 23:18 Temperature Pulse Rate 74 72 68 Respiratory Rate 22 H 19 19 Blood Pressure 125/62 113/57 L 106/58 L Pulse Oximetry 95 95 94 03/03/22 23:36 03/04/22 00:41 03/04/22 01:15 Temperature Pulse Rate 68 62 64 Respiratory Rate 18 17 17 Blood Pressure 99/54 L 110/53 L 110/50 L Pulse Oximetry 94 92 95 03/04/22 02:59 03/04/22 05:20 03/04/22 07:22 Temperature 97.4 F Pulse Rate 62 58 55 Respiratory Rate 16 17 16 Blood Pressure 103/49 L 107/59 L 103/54 L Pulse Oximetry 94 94 95 BMI result Body Mass Index 22.4 <Hawa Hernandez NP - Last Filed: 03/04/22 09:06> Const Other: Awake and in no acute distress. He is alert but not oriented to time or event or location <Lars Larsen MD - Last Filed: 03/03/22 21:14> HENMT Other: Normocephalic atraumatic <Lars Larsen MD - Last Filed: 03/03/22 21:14> Resp Other: Clear and equal bilaterally without wheezes rales or rhonchi <Lars Larsen MD - Last Filed: 03/03/22 21:14> Cardio Other: Regular rate and rhythm without murmurs rubs or gallops <Lars Larsen MD - Last Filed: 03/03/22 21:14> GI Other: Soft nontender nondistended <Lars Larsen MD - Last Filed: 03/03/22 21:14> Skin Other: Warm and dry without rash <Lars Larsen MD - Last Filed: 03/03/22 21:14> Neuro Other: Nonfocal neuro exam. Ambulates without difficulty <Lars Larsen MD - Last Filed: 03/03/22 21:14> Psych Other: Cooperative but confused <Lars Larsen MD - Last Filed: 03/03/22 21:14> Course Course Course Narrative: Exacerbation of dementia and increasing confusion Rule out medical cause such as urinary tract infection or pneumonia 8 p.m.. Patient is still agitated. Will treat with Haldol as well Po. So far lab work and chest x-ray are unremarkable. Await CBC and urinalysis. Review of old records shows he has had recent imaging. I did not feel we need to reimage his brain today. 21:13 Still awaiting urinalysis. I discussed case with his and agree that he is still not safe to be home. Will hold him in the emergency department for evaluation for placement injury site for stabilization with a final impression of agitated dementia. <Lars Larsen MD - Last Filed: 03/03/22 21:14> Exacerbation of dementia and increasing confusion Rule out medical cause such as urinary tract infection or pneumonia 8 p.m.. Patient is still agitated. Will treat with Haldol as well Po. So far lab work and chest x-ray are unremarkable. Await CBC and urinalysis. Review of old records shows he has had recent imaging. I did not feel we need to reimage his brain today. 21:13 Still awaiting urinalysis. I discussed case with his and agree that he is still not safe to be home. Will hold him in the emergency department for evaluation for placement injury site for stabilization with a final impression of agitated dementia. 22:16 Patient became very confused, sundowning, aggressive, trying to punch staff. Patient had to be chemically restrained with Benadryl 50 mg, Haldol 5 mg and Ativan 2 mg, all IM. Patient's is at bedside, agrees with plan. <Aidee Lance MD - Last Filed: 03/03/22 22:17> Exacerbation of dementia and increasing confusion Rule out medical cause such as urinary tract infection or pneumonia 8 p.m.. Patient is still agitated. Will treat with Haldol as well Po. So far lab work and chest x-ray are unremarkable. Await CBC and urinalysis. Review of old records shows he has had recent imaging. I did not feel we need to reimage his brain today. 21:13 Still awaiting urinalysis. I discussed case with his and agree that he is still not safe to be home. Will hold him in the emergency department for evaluation for placement injury site for stabilization with a final impression of agitated dementia. 22:16 Patient became very confused, sundowning, aggressive, trying to punch staff. Patient had to be chemically restrained with Benadryl 50 mg, Haldol 5 mg and Ativan 2 mg, all IM. Patient's is at bedside, agrees with plan. 2316 Patient arousable, but calm and cooperative. All investigations reviewed and no acute findings to better explain patient's presentation. Patient was placed in physician obsess and placed on a one-to-one awaiting evaluation by [facility]. <Ruma Howard MD - Last Filed: 03/03/22 23:47> Reevaluation(s) Reevaluation #1: 03/04-patient is pending a crisis evaluation and case management involvement. He did require chemical restraints yesterday for aggression that did not improve with deescalation. He is currently sleeping. Vital signs reviewed and stable. Respiratory even and labored. Will continue physician observation pending disposition. Medications reconciled for this morning <Hawa Hernandez NP - Last Filed: 03/04/22 09:06> Time: 09:00 <Hawa Hernandez NP - Last Filed: 03/04/22 09:06> MDM - Altered Mental Status Lab Data Result diagrams: : 03/03/22 22:51 03/03/22 18:47 <Lars Larsen MD - Last Filed: 03/03/22 21:14> Labs: Lab Results 03/03/22 03/03/22 03/03/22 Range/Units 18:47 18:47 18:47 WBC (4.8-10.8) X10*3/uL RBC (4.60-5.80) X10*6/uL Hgb (14.0-18.0) g/dl Hct (42.0-52.0) % MCV (80.0-98.0) fL MCH (27.0-33.0) pg MCHC (31.0-36.0) g/dl RDW (11.0-16.0) % Plt Count (160-400) X10*3/uL MPV (9.4-12.4) fL Immature Gran % (Auto) (0.0-0.4) % Neut % (Auto) (45-73) % Lymph % (Auto) (20-40) % Schley % (Auto) (2-11) % Eos % (Auto) (0-4) % Baso % (Auto) (0-2) % Lymph # (Auto) (1.2-4.9) X10*3/uL Schley # (Auto) (0.1-1.2) X10*3/uL Eos # (Auto) (0.0-0.4) X10*3/uL Baso # (Auto) (0.0-0.2) X10*3/uL Abs Immat Gran (auto) (0.00-0.03) X10*3/uL Absolute Neuts (auto) (2.0-8.3) x10*3/uL Absolute Nucleated RBC (0.0-0.012) X10*3/uL Nucleated RBC % (auto) (0.0-0.2) /100WBC Sodium 141 (135-145) mmol/L Potassium 4.4 (3.3-5.1) mmol/L Chloride 107 (96-108) mmol/L Carbon Dioxide 25 (22-29) mmol/L Anion Gap 13 (12-20) BUN 14 (9-16) mg/dL Creatinine 0.94 (0.5-1.4) mg/dL Estim Creat Clear Calc 57.9 Estimated GFR > 60 Random Glucose 96 (60-115) mg/dL Calcium 9.4 (8.4-10.2) mg/dL Total Bilirubin 1.2 H (0.0-1.0) mg/dL AST 28 (5-37) U/L ALT 20 (0-40) U/L Alkaline Phosphatase 93 (39-117) U/L Troponin I High Sens < 3.5 (<3.5-35.0) ng/L Total Protein 7.0 (6.5-8.0) g/dL Albumin 4.3 (3.5-5.0) g/dL Urine Color Urine Appearance Urine pH (5.0-8.0) Ur Specific [place] (1.005-1.025) Urine Protein (NEG-TRACE) MG/DL Urine Glucose (UA) (NEG) MG/DL Urine Ketones (NEG) MG/DL Urine Blood (NEG) Urine Nitrite (NEG) Ur Leukocyte Esterase (NEG) COVID-19 (SAYDA) Negative (Negative) COVID-19 Clin Com See Note 03/03/22 03/03/22 Range/Units 21:11 22:51 WBC 4.3 L (4.8-10.8) X10*3/uL RBC 4.57 L (4.60-5.80) X10*6/uL Hgb 13.5 L (14.0-18.0) g/dl Hct 40.1 L (42.0-52.0) % MCV 87.7 (80.0-98.0) fL MCH 29.5 (27.0-33.0) pg MCHC 33.7 (31.0-36.0) g/dl RDW 13.7 (11.0-16.0) % Plt Count 198 (160-400) X10*3/uL MPV 9.0 L (9.4-12.4) fL Immature Gran % (Auto) 0.5 H (0.0-0.4) % Neut % (Auto) 55.0 (45-73) % Lymph % (Auto) 28.1 (20-40) % Schley % (Auto) 13.4 H (2-11) % Eos % (Auto) 2.3 (0-4) % Baso % (Auto) 0.7 (0-2) % Lymph # (Auto) 1.2 (1.2-4.9) X10*3/uL Schley # (Auto) 0.6 (0.1-1.2) X10*3/uL Eos # (Auto) 0.1 (0.0-0.4) X10*3/uL Baso # (Auto) 0.0 (0.0-0.2) X10*3/uL Abs Immat Gran (auto) 0.02 (0.00-0.03) X10*3/uL Absolute Neuts (auto) 2.4 (2.0-8.3) x10*3/uL Absolute Nucleated RBC 0.000 (0.0-0.012) X10*3/uL Nucleated RBC % (auto) 0.0 (0.0-0.2) /100WBC Sodium (135-145) mmol/L Potassium (3.3-5.1) mmol/L Chloride (96-108) mmol/L Carbon Dioxide (22-29) mmol/L Anion Gap (12-20) BUN (9-16) mg/dL Creatinine (0.5-1.4) mg/dL Estim Creat Clear Calc Estimated GFR Random Glucose (60-115) mg/dL Calcium (8.4-10.2) mg/dL Total Bilirubin (0.0-1.0) mg/dL AST (5-37) U/L ALT (0-40) U/L Alkaline Phosphatase (39-117) U/L Troponin I High Sens (<3.5-35.0) ng/L Total Protein (6.5-8.0) g/dL Albumin (3.5-5.0) g/dL Urine Color YELLOW Urine Appearance CLEAR Urine pH 6.0 (5.0-8.0) Ur Specific [place] 1.025 (1.005-1.025) Urine Protein TRACE (NEG-TRACE) MG/DL Urine Glucose (UA) NEG (NEG) MG/DL Urine Ketones NEG (NEG) MG/DL Urine Blood NEG (NEG) Urine Nitrite NEG (NEG) Ur Leukocyte Esterase NEG (NEG) COVID-19 (SAYDA) (Negative) COVID-19 Clin Com <Lars Larsen MD - Last Filed: 03/03/22 21:14> Lab Results 03/03/22 03/03/22 03/03/22 Range/Units 18:47 18:47 18:47 WBC (4.8-10.8) X10*3/uL RBC (4.60-5.80) X10*6/uL Hgb (14.0-18.0) g/dl Hct (42.0-52.0) % MCV (80.0-98.0) fL MCH (27.0-33.0) pg MCHC (31.0-36.0) g/dl RDW (11.0-16.0) % Plt Count (160-400) X10*3/uL MPV (9.4-12.4) fL Immature Gran % (Auto) (0.0-0.4) % Neut % (Auto) (45-73) % Lymph % (Auto) (20-40) % Schley % (Auto) (2-11) % Eos % (Auto) (0-4) % Baso % (Auto) (0-2) % Lymph # (Auto) (1.2-4.9) X10*3/uL Schley # (Auto) (0.1-1.2) X10*3/uL Eos # (Auto) (0.0-0.4) X10*3/uL Baso # (Auto) (0.0-0.2) X10*3/uL Abs Immat Gran (auto) (0.00-0.03) X10*3/uL Absolute Neuts (auto) (2.0-8.3) x10*3/uL Absolute Nucleated RBC (0.0-0.012) X10*3/uL Nucleated RBC % (auto) (0.0-0.2) /100WBC Sodium 141 (135-145) mmol/L Potassium 4.4 (3.3-5.1) mmol/L Chloride 107 (96-108) mmol/L Carbon Dioxide 25 (22-29) mmol/L Anion Gap 13 (12-20) BUN 14 (9-16) mg/dL Creatinine 0.94 (0.5-1.4) mg/dL Estim Creat Clear Calc 57.9 Estimated GFR > 60 Random Glucose 96 (60-115) mg/dL Calcium 9.4 (8.4-10.2) mg/dL Total Bilirubin 1.2 H (0.0-1.0) mg/dL AST 28 (5-37) U/L ALT 20 (0-40) U/L Alkaline Phosphatase 93 (39-117) U/L Troponin I High Sens < 3.5 (<3.5-35.0) ng/L Total Protein 7.0 (6.5-8.0) g/dL Albumin 4.3 (3.5-5.0) g/dL Urine Color Urine Appearance Urine pH (5.0-8.0) Ur Specific [place] (1.005-1.025) Urine Protein (NEG-TRACE) MG/DL Urine Glucose (UA) (NEG) MG/DL Urine Ketones (NEG) MG/DL Urine Blood (NEG) Urine Nitrite (NEG) Ur Leukocyte Esterase (NEG) COVID-19 (SAYDA) Negative (Negative) COVID-19 Clin Com See Note 03/03/22 03/03/22 Range/Units 21:11 22:51 WBC 4.3 L (4.8-10.8) X10*3/uL RBC 4.57 L (4.60-5.80) X10*6/uL Hgb 13.5 L (14.0-18.0) g/dl Hct 40.1 L (42.0-52.0) % MCV 87.7 (80.0-98.0) fL MCH 29.5 (27.0-33.0) pg MCHC 33.7 (31.0-36.0) g/dl RDW 13.7 (11.0-16.0) % Plt Count 198 (160-400) X10*3/uL MPV 9.0 L (9.4-12.4) fL Immature Gran % (Auto) 0.5 H (0.0-0.4) % Neut % (Auto) 55.0 (45-73) % Lymph % (Auto) 28.1 (20-40) % Schley % (Auto) 13.4 H (2-11) % Eos % (Auto) 2.3 (0-4) % Baso % (Auto) 0.7 (0-2) % Lymph # (Auto) 1.2 (1.2-4.9) X10*3/uL Schley # (Auto) 0.6 (0.1-1.2) X10*3/uL Eos # (Auto) 0.1 (0.0-0.4) X10*3/uL Baso # (Auto) 0.0 (0.0-0.2) X10*3/uL Abs Immat Gran (auto) 0.02 (0.00-0.03) X10*3/uL Absolute Neuts (auto) 2.4 (2.0-8.3) x10*3/uL Absolute Nucleated RBC 0.000 (0.0-0.012) X10*3/uL Nucleated RBC % (auto) 0.0 (0.0-0.2) /100WBC Sodium (135-145) mmol/L Potassium (3.3-5.1) mmol/L Chloride (96-108) mmol/L Carbon Dioxide (22-29) mmol/L Anion Gap (12-20) BUN (9-16) mg/dL Creatinine (0.5-1.4) mg/dL Estim Creat Clear Calc Estimated GFR Random Glucose (60-115) mg/dL Calcium (8.4-10.2) mg/dL Total Bilirubin (0.0-1.0) mg/dL AST (5-37) U/L ALT (0-40) U/L Alkaline Phosphatase (39-117) U/L Troponin I High Sens (<3.5-35.0) ng/L Total Protein (6.5-8.0) g/dL Albumin (3.5-5.0) g/dL Urine Color YELLOW Urine Appearance CLEAR Urine pH 6.0 (5.0-8.0) Ur Specific [place] 1.025 (1.005-1.025) Urine Protein TRACE (NEG-TRACE) MG/DL Urine Glucose (UA) NEG (NEG) MG/DL Urine Ketones NEG (NEG) MG/DL Urine Blood NEG (NEG) Urine Nitrite NEG (NEG) Ur Leukocyte Esterase NEG (NEG) COVID-19 (SAYDA) (Negative) COVID-19 Clin Com <Aidee Lance MD - Last Filed: 03/03/22 22:17> Lab Results 03/03/22 03/03/22 03/03/22 Range/Units 18:47 18:47 18:47 WBC (4.8-10.8) X10*3/uL RBC (4.60-5.80) X10*6/uL Hgb (14.0-18.0) g/dl Hct (42.0-52.0) % MCV (80.0-98.0) fL MCH (27.0-33.0) pg MCHC (31.0-36.0) g/dl RDW (11.0-16.0) % Plt Count (160-400) X10*3/uL MPV (9.4-12.4) fL Immature Gran % (Auto) (0.0-0.4) % Neut % (Auto) (45-73) % Lymph % (Auto) (20-40) % Schley % (Auto) (2-11) % Eos % (Auto) (0-4) % Baso % (Auto) (0-2) % Lymph # (Auto) (1.2-4.9) X10*3/uL Schley # (Auto) (0.1-1.2) X10*3/uL Eos # (Auto) (0.0-0.4) X10*3/uL Baso # (Auto) (0.0-0.2) X10*3/uL Abs Immat Gran (auto) (0.00-0.03) X10*3/uL Absolute Neuts (auto) (2.0-8.3) x10*3/uL Absolute Nucleated RBC (0.0-0.012) X10*3/uL Nucleated RBC % (auto) (0.0-0.2) /100WBC Sodium 141 (135-145) mmol/L Potassium 4.4 (3.3-5.1) mmol/L Chloride 107 (96-108) mmol/L Carbon Dioxide 25 (22-29) mmol/L Anion Gap 13 (12-20) BUN 14 (9-16) mg/dL Creatinine 0.94 (0.5-1.4) mg/dL Estim Creat Clear Calc 57.9 Estimated GFR > 60 Random Glucose 96 (60-115) mg/dL Calcium 9.4 (8.4-10.2) mg/dL Total Bilirubin 1.2 H (0.0-1.0) mg/dL AST 28 (5-37) U/L ALT 20 (0-40) U/L Alkaline Phosphatase 93 (39-117) U/L Troponin I High Sens < 3.5 (<3.5-35.0) ng/L Total Protein 7.0 (6.5-8.0) g/dL Albumin 4.3 (3.5-5.0) g/dL Urine Color Urine Appearance Urine pH (5.0-8.0) Ur Specific [place] (1.005-1.025) Urine Protein (NEG-TRACE) MG/DL Urine Glucose (UA) (NEG) MG/DL Urine Ketones (NEG) MG/DL Urine Blood (NEG) Urine Nitrite (NEG) Ur Leukocyte Esterase (NEG) COVID-19 (SAYDA) Negative (Negative) COVID-19 Clin Com See Note 03/03/22 03/03/22 Range/Units 21:11 22:51 WBC 4.3 L (4.8-10.8) X10*3/uL RBC 4.57 L (4.60-5.80) X10*6/uL Hgb 13.5 L (14.0-18.0) g/dl Hct 40.1 L (42.0-52.0) % MCV 87.7 (80.0-98.0) fL MCH 29.5 (27.0-33.0) pg MCHC 33.7 (31.0-36.0) g/dl RDW 13.7 (11.0-16.0) % Plt Count 198 (160-400) X10*3/uL MPV 9.0 L (9.4-12.4) fL Immature Gran % (Auto) 0.5 H (0.0-0.4) % Neut % (Auto) 55.0 (45-73) % Lymph % (Auto) 28.1 (20-40) % Schley % (Auto) 13.4 H (2-11) % Eos % (Auto) 2.3 (0-4) % Baso % (Auto) 0.7 (0-2) % Lymph # (Auto) 1.2 (1.2-4.9) X10*3/uL Schley # (Auto) 0.6 (0.1-1.2) X10*3/uL Eos # (Auto) 0.1 (0.0-0.4) X10*3/uL Baso # (Auto) 0.0 (0.0-0.2) X10*3/uL Abs Immat Gran (auto) 0.02 (0.00-0.03) X10*3/uL Absolute Neuts (auto) 2.4 (2.0-8.3) x10*3/uL Absolute Nucleated RBC 0.000 (0.0-0.012) X10*3/uL Nucleated RBC % (auto) 0.0 (0.0-0.2) /100WBC Sodium (135-145) mmol/L Potassium (3.3-5.1) mmol/L Chloride (96-108) mmol/L Carbon Dioxide (22-29) mmol/L Anion Gap (12-20) BUN (9-16) mg/dL Creatinine (0.5-1.4) mg/dL Estim Creat Clear Calc Estimated GFR Random Glucose (60-115) mg/dL Calcium (8.4-10.2) mg/dL Total Bilirubin (0.0-1.0) mg/dL AST (5-37) U/L ALT (0-40) U/L Alkaline Phosphatase (39-117) U/L Troponin I High Sens (<3.5-35.0) ng/L Total Protein (6.5-8.0) g/dL Albumin (3.5-5.0) g/dL Urine Color YELLOW Urine Appearance CLEAR Urine pH 6.0 (5.0-8.0) Ur Specific [place] 1.025 (1.005-1.025) Urine Protein TRACE (NEG-TRACE) MG/DL Urine Glucose (UA) NEG (NEG) MG/DL Urine Ketones NEG (NEG) MG/DL Urine Blood NEG (NEG) Urine Nitrite NEG (NEG) Ur Leukocyte Esterase NEG (NEG) COVID-19 (SAYDA) (Negative) COVID-19 Clin Com <Ruma Howard MD - Last Filed: 03/03/22 23:47> Lab Results 03/03/22 03/03/22 03/03/22 Range/Units 18:47 18:47 18:47 WBC (4.8-10.8) X10*3/uL RBC (4.60-5.80) X10*6/uL Hgb (14.0-18.0) g/dl Hct (42.0-52.0) % MCV (80.0-98.0) fL MCH (27.0-33.0) pg MCHC (31.0-36.0) g/dl RDW (11.0-16.0) % Plt Count (160-400) X10*3/uL MPV (9.4-12.4) fL Immature Gran % (Auto) (0.0-0.4) % Neut % (Auto) (45-73) % Lymph % (Auto) (20-40) % Schley % (Auto) (2-11) % Eos % (Auto) (0-4) % Baso % (Auto) (0-2) % Lymph # (Auto) (1.2-4.9) X10*3/uL Schley # (Auto) (0.1-1.2) X10*3/uL Eos # (Auto) (0.0-0.4) X10*3/uL Baso # (Auto) (0.0-0.2) X10*3/uL Abs Immat Gran (auto) (0.00-0.03) X10*3/uL Absolute Neuts (auto) (2.0-8.3) x10*3/uL Absolute Nucleated RBC (0.0-0.012) X10*3/uL Nucleated RBC % (auto) (0.0-0.2) /100WBC Sodium 141 (135-145) mmol/L Potassium 4.4 (3.3-5.1) mmol/L Chloride 107 (96-108) mmol/L Carbon Dioxide 25 (22-29) mmol/L Anion Gap 13 (12-20) BUN 14 (9-16) mg/dL Creatinine 0.94 (0.5-1.4) mg/dL Estim Creat Clear Calc 57.9 Estimated GFR > 60 Random Glucose 96 (60-115) mg/dL Calcium 9.4 (8.4-10.2) mg/dL Total Bilirubin 1.2 H (0.0-1.0) mg/dL AST 28 (5-37) U/L ALT 20 (0-40) U/L Alkaline Phosphatase 93 (39-117) U/L Troponin I High Sens < 3.5 (<3.5-35.0) ng/L Total Protein 7.0 (6.5-8.0) g/dL Albumin 4.3 (3.5-5.0) g/dL Urine Color Urine Appearance Urine pH (5.0-8.0) Ur Specific [place] (1.005-1.025) Urine Protein (NEG-TRACE) MG/DL Urine Glucose (UA) (NEG) MG/DL Urine Ketones (NEG) MG/DL Urine Blood (NEG) Urine Nitrite (NEG) Ur Leukocyte Esterase (NEG) COVID-19 ([facility]) Negative (Negative) COVID-19 Clin Com See Note 03/03/22 03/03/22 Range/Units 21:11 22:51 WBC 4.3 L (4.8-10.8) X10*3/uL RBC 4.57 L (4.60-5.80) X10*6/uL Hgb 13.5 L (14.0-18.0) g/dl Hct 40.1 L (42.0-52.0) % MCV 87.7 (80.0-98.0) fL MCH 29.5 (27.0-33.0) pg MCHC 33.7 (31.0-36.0) g/dl RDW 13.7 (11.0-16.0) % Plt Count 198 (160-400) X10*3/uL MPV 9.0 L (9.4-12.4) fL Immature Gran % (Auto) 0.5 H (0.0-0.4) % Neut % (Auto) 55.0 (45-73) % Lymph % (Auto) 28.1 (20-40) % Schley % (Auto) 13.4 H (2-11) % Eos % (Auto) 2.3 (0-4) % Baso % (Auto) 0.7 (0-2) % Lymph # (Auto) 1.2 (1.2-4.9) X10*3/uL Schley # (Auto) 0.6 (0.1-1.2) X10*3/uL Eos # (Auto) 0.1 (0.0-0.4) X10*3/uL Baso # (Auto) 0.0 (0.0-0.2) X10*3/uL Abs Immat Gran (auto) 0.02 (0.00-0.03) X10*3/uL Absolute Neuts (auto) 2.4 (2.0-8.3) x10*3/uL Absolute Nucleated RBC 0.000 (0.0-0.012) X10*3/uL Nucleated RBC % (auto) 0.0 (0.0-0.2) /100WBC Sodium (135-145) mmol/L Potassium (3.3-5.1) mmol/L Chloride (96-108) mmol/L Carbon Dioxide (22-29) mmol/L Anion Gap (12-20) BUN (9-16) mg/dL Creatinine (0.5-1.4) mg/dL Estim Creat Clear Calc Estimated GFR Random Glucose (60-115) mg/dL Calcium (8.4-10.2) mg/dL Total Bilirubin (0.0-1.0) mg/dL AST (5-37) U/L ALT (0-40) U/L Alkaline Phosphatase (39-117) U/L Troponin I High Sens (<3.5-35.0) ng/L Total Protein (6.5-8.0) g/dL Albumin (3.5-5.0) g/dL Urine Color YELLOW Urine Appearance CLEAR Urine pH 6.0 (5.0-8.0) Ur Specific [place] 1.025 (1.005-1.025) Urine Protein TRACE (NEG-TRACE) MG/DL Urine Glucose (UA) NEG (NEG) MG/DL Urine Ketones NEG (NEG) MG/DL Urine Blood NEG (NEG) Urine Nitrite NEG (NEG) Ur Leukocyte Esterase NEG (NEG) COVID-19 ([facility]) (Negative) COVID-19 Clin Com <Hawa Hernandez NP - Last Filed: 03/04/22 09:06> Discharge Plan Discharge Clinical Impression: Dementia, Agitation <Lars Larsen MD - Last Filed: 03/03/22 21:14> Patient Disposition: Still a Patient <Lars Larsen MD - Last Filed: 03/03/22 21:14> Prescriptions: No Action sertraline 100 mg tablet 1 tab PO DAILY 0RF cyanocobalamin (vitamin B-12) 1,000 mcg tablet 1 tab PO DAILY 0RF thiamine HCl (vitamin B1) 100 mg tablet 1 tab PO DAILY 0RF folic acid 1 mg tablet 1 tab PO DAILY 0RF rosuvastatin 20 mg tablet 1 tab PO DAILY@1500 0RF quetiapine 50 mg tablet 50 mg PO DAILY 0RF quetiapine 50 mg tablet 100 mg PO DAILY@1500 0RF <Lars Larsen MD - Last Filed: 03/03/22 21:14>
[2022-03-03] MEDS: QUEtiapine Fumarate 50 MG TABLET PO (18:54)
[2022-03-03 19:07] LABS: COVID-19 Test Negative (Negative)
[2022-03-03 19:15] LABS: Alanine Aminotransferase 20 U/L (0-40); Albumin Level 4.3 g/dL (3.5-5.0); Alkaline Phosphatase 93 U/L (39-117); Anion Gap 13 (12-20); Aspartate Amino Transferase 28 U/L (5-37); Bilirubin Total 1.2 mg/dL (0.0-1.0); Blood Urea Nitrogen 14 mg/dL (9-16); Calcium 9.4 mg/dL (8.4-10.2); Carbon Dioxide 25 mmol/L (22-29); Chloride 107 mmol/L (96-108); Creatinine Clr Calc Pharmacy 57.9; Estimated Glomerular Filt Rate > 60; Glucose Random 96 mg/dL (60-115); Potassium 4.4 mmol/L (3.3-5.1); Sodium 141 mmol/L (135-145)
[2022-03-03 19:28] LABS: Troponin-I High Sensitivity < 3.5 ng/L (<3.5-35.0)
[2022-03-03] MEDS: HaloperidoL 1 MG TABLET 2 MG PO (20:15)
[2022-03-03 21:19] LABS: Appearance Urine CLEAR; Color Urine YELLOW; Glucose Urine UA NEG (NEG); Leukocyte Esterase Urine NEG (NEG); Nitrite Urine NEG (NEG); Specific Gravity - Urine 1.025 (1.005-1.025); Urine Blood NEG (NEG); Urine Ketones NEG (NEG); Urine Protein TRACE MG/DL (NEG-TRACE)
[2022-03-03] MEDS: LORazepam 1 MG TABLET PO (21:19)
--- NOTE | 2022-03-03 21:36 | PC.NURSE ---
Patient restless and pacing at bedside with in room. Patient medicated as per MD order, remains restless. Charge nurse and MD notified. Frequent rounding done and reassurance to patient and family member provided. Will monitor closely.
--- NOTE | 2022-03-03 22:17 | PC.NURSE ---
Patient pacing in room, requesting to leave and changed back into clothes. at bedside. Patient remains restless and agitated. Charge Nurse and MD at bedside, attempted to deescalate, patient increasingly agitated and combative toward staff. Security called to room, patient placed back in bed and yelling at staff, medications given per MD order, see MAR.
[2022-03-03] MEDS: Haloperidol Lactate 5 MG/ML VIAL IM (22:18)
[2022-03-03] MEDS: diphenhydrAMINE HCL 50 MG/ML VIAL IM (22:18)
[2022-03-03] MEDS: LORazepam 2 MG/ML VIAL IM (22:18)
--- NOTE | 2022-03-03 22:55 | PC.NURSE ---
Addendum entered by Marsha Harden RN 03/03/22 23:35: notified of 1:1 sitter at bedside. Original Note: Patient calm and cooperative, resting in bed. remains at bedside. VSS. 1:1 sitter at bedside. Will monitor closely.
[2022-03-03 22:56] LABS: Basophils Percent Auto 0.7 % (0-2); Eosinophils Absolute Auto 0.1 X10*3/uL (0.0-0.4); Eosinophils Percent Auto 2.3 % (0-4); Hematocrit 40.1 % (42.0-52.0); Hemoglobin 13.5 g/dl (14.0-18.0); Imm Gran Abs Auto 0.02 X10*3/uL (0.00-0.03); Imm Gran Pct Auto 0.5 % (0.0-0.4); Lymphocytes Absolute Auto 1.2 X10*3/uL (1.2-4.9); Lymphocytes Percent Auto 28.1 % (20-40); Mean Corpuscular HGB Conc 33.7 g/dl (31.0-36.0); Mean Corpuscular Hemoglobin 29.5 pg (27.0-33.0); Mean Corpuscular Volume 87.7 fL (80.0-98.0); Monocytes Absolute Auto 0.6 X10*3/uL (0.1-1.2); Monocytes Percent Auto 13.4 % (2-11); Neutrophils Absolute Auto 2.4 x10*3/uL (2.0-8.3); Platelet Count 198 X10*3/uL (160-400); Red Blood Count 4.57 X10*6/uL (4.60-5.80); Red Cell Distribution Width 13.7 % (11.0-16.0); White Blood Count 4.3 X10*3/uL (4.8-10.8)
[2022-03-03 23:06] LABS: MANUAL DIFF FLAG NO
[2022-03-04 00:41] VITALS: BP 110/53; PULSE 62; RESP 17; O2SAT 92
[2022-03-04 01:15] VITALS: BP 110/50; PULSE 64; RESP 17; O2SAT 95
[2022-03-04 02:59] VITALS: BP 103/49; PULSE 62; RESP 16; O2SAT 94
[2022-03-04 05:20] VITALS: BP 107/59; PULSE 58; RESP 17; TEMP 36.3; O2SAT 94
[2022-03-04 07:22] VITALS: BP 103/54; PULSE 55; RESP 16; O2SAT 95
--- NOTE | 2022-03-04 08:44 | PHA.MEDREC ---
Pharmacy Consult ? Medication Reconciliation Pharmacy has completed the medication reconciliation. Spoke to pt's Ruma, she said he takes his PM medications around 3pm because he starts getting a little crazy, . No remarkable issues. Kim Peña, PharmD
[2022-03-04 09:24] VITALS: BP 115/60; PULSE 55; RESP 18; O2SAT 95
[2022-03-04] MEDS: Sertraline HCL 100 MG TABLET PO (10:18)
[2022-03-04] MEDS: QUEtiapine Fumarate 50 MG TABLET PO (10:18)
[2022-03-04] MEDS: Folic Acid 1 MG TABLET PO (10:18)
[2022-03-04] MEDS: Thiamine HCL 100 MG TABLET PO (10:18)
--- NOTE | 2022-03-04 10:39 | MHC.CM.ED ---
Received consult for assessment of d/c needs: Pt w/Alzheimers presented from home with aggressive behaviors not redirectable by family. Pt required chemical behavioral management in the ED. No acute medical indicators for admission or to explain behavior change: Crisis consult pending: Met with pt who is aphasic but able to converse somewhat. Eating breakfast, calm and cooperative. Call placed to pt's spouse Ruma who states pt has never had behaviors like that and is normally pleasant, funny and easily redirectable. She would like to keep pt home as long as possible providing she can manage him. She would like to await Crisis recommendations and would like a PRN anxiety/behavior medication script prior to taking pt home. Discussed above with ED care team: will await Crisis eval. Pt has been vaccinated x4. HCP copy requested for EMR. CM to follow.
--- NOTE | 2022-03-04 11:11 | MHC.CARE ---
Pt is a 77 y/o Amharic speaking, male who is previously unknown to the CARE Team.? Yesterday, EMS was called by pt?s as he was exhibiting uncharacteristic and concerning behavior.? Pt has an Alzheimer?s dx as of 2012.? Pt has been medically cleared and is being assessed by the CARE Team to determine appropriate treatment recommendations. Pt has no hx of mental illness, suicidality, or substance use. ?Pt has been medication compliant.? CARE Team meets with pt in his room in the main ED.? He is resting in bed and is dressed in hospital attire.? He appears his stated age.? He is alert but appears confused.? He cannot recall where he is, how he got here, what day of the week it is or how long he has been .? Pt does remember his ?s name.? His eye contact and speech are unremarkable.? He describes his mood as good.? He is pleasant and smiling throughout the screening.? He does not appear to be delusional or experiencing symptoms of psychosis.? He does appear confused.? Pt denies any SI, HI, and self-harm urges. CARE Team speaks with pt?s Ms. Ruma Dobbs ([phone]) for the purpose of gathering collateral information regarding the pt.? Ms. Dobbs stated that pt was diagnosed in 2012 with Alzheimer?s.? Pt was here at this facility, and then went to [facility] where it appeared as though they had pt?s medications organized.? She reports pt was doing well after that but is aware that the disease grows progressively worse.? Ms. Dobbs stated that yesterday, pt appeared confused and was ?out of control?, she stated that she could not ?Control him? and grew concerned.? She reported that pt is usually manageable and can be effectively redirected.? Yesterday, this was not the case; pt exited the home with the intent on going somewhere though the somewhere he was intent on going to was unknown.? She reports that pt has Aphasia and is not always verbal or organized in his thoughts.? Ms. Dobbs grew concerned that pt may get lost or be hit by a car.? A neighbor that is friendly with pt assisted Ms. Dobbs in getting pt back into the home and under control.? She stated that she called [facility] who advised her to have pt transported to this facility.? She stated ?I didn?t know what to do? and expressed concerns that pt may leave the home in the middle of the night and get lost. She reports no hx of mental illness with pt.? Pt has been taking his medications as prescribed, Ms. Dobbs reports administering his medications and checking to ensure they have been swallowed.? She reports that pt is ?Hard of hearing? and can at times be verbally aggressive but has never been physically aggressive. Pt?s eating, sleeping and base line behaviors remain the same with the exception of yesterday?s incident. Insight, judgement, memory, concentration, and impulse control are poor. Ms. Dobbs stressed more than once during her conversation with CARE Team that her priority is to keep pt home. Pt?s had spoken with Case Management and asked that she be given a PRN for pt for when he grows agitated, stressing that her desire is to keep pt at home. Pt does not appear to be a safety risk due to mental illness but may be due to his Alzheimer?s.? Plan is for a psych consult to be placed potentially for prescription of a PRN medication.? This plan was discussed with and agreed upon by ED Provider Frankie Hernandez.
--- NOTE | 2022-03-04 13:30 | PM.PSYCN ---
History of Present Illness Date of Service: 03/04/22 Chief Complaint: INCR CONFUSION,H/O ALZ PER FAMILY Reason for Consult: dementia with behavioral disturbance - mgmt of agitation HPI Narrative: per ED note: Increased confusion at home.? Patient has a history of significant dementia.? He lives at home with his who typically takes care of him.? Today, he became somewhat agitated and insisted upon leaving the house without a clear goal.? His states that he was agitated but not violent. He is unable to state why.? His could not redirect him.? She was eventually able to talk him into going to a friend's house.? She called EMS to take him to the emergency department out of concern for danger to himself.? The patient himself has difficulty expressing issues but denies any complaints.? He is unable to remember his 's name.? The been no recent health status changes per his .? No recent fevers chills or cough.? No change in appetite.? He has been eating and drinking at baseline.? He was seen in December with a change of mental status which was thought at that time due to pain pneumonia found on x-ray.? Patient was seen by case management (Nuha) and CARE team (Fareed).? They both spoke to the patient's .? She would like him to go home and keep him home as long as possible.? This is likely progression of his dementia.? He does have daily home medications but she is concerned that he may need a p.r.n. medication for any behavior change at home.? Therefore will obtain a psychiatry consultation to evaluate his medications and see what changes be made with the goal of keeping the patient home with his on interview with , pt was sedated and difficult to rouse. he did smile at MD but did not say anything prior to falling back asleep. per sitter, pt has been sleeping essentially the entire time she has been with him, or the previous 2.5 hours. Past Psychiatric History: alzheimer's dementia Medical Evaluation Reviewed: Yes [facility] Medical History Alzheimer disease Diagnostics Vital Signs (24Hr): Vital Signs - 24 hr 03/03/22 17:48 03/03/22 20:31 03/03/22 22:27 Temperature 98.9 F 98.8 F Pulse Rate 80 83 82 Respiratory Rate 16 16 20 Blood Pressure 168/98 H 132/79 167/85 H Pulse Oximetry 95 96 97 03/03/22 22:48 03/03/22 23:03 03/03/22 23:18 Temperature Pulse Rate 74 72 68 Respiratory Rate 22 H 19 19 Blood Pressure 125/62 113/57 L 106/58 L Pulse Oximetry 95 95 94 03/03/22 23:36 03/04/22 00:41 03/04/22 01:15 Temperature Pulse Rate 68 62 64 Respiratory Rate 18 17 17 Blood Pressure 99/54 L 110/53 L 110/50 L Pulse Oximetry 94 92 95 03/04/22 02:59 03/04/22 05:20 03/04/22 07:22 Temperature 97.4 F Pulse Rate 62 58 55 Respiratory Rate 16 17 16 Blood Pressure 103/49 L 107/59 L 103/54 L Pulse Oximetry 94 94 95 03/04/22 09:24 Temperature Pulse Rate 55 Respiratory Rate 18 Blood Pressure 115/60 Pulse Oximetry 95 BMI result Body Mass Index 22.4 Labs Results: 03/03/22 22:51 03/03/22 18:47 Labs: Laboratory Results - last 48 hr 03/03/22 03/03/22 03/03/22 18:47 18:47 18:47 WBC RBC Hgb Hct MCV MCH MCHC RDW Plt Count MPV Immature Gran % (Auto) Neut % (Auto) Lymph % (Auto) [place] % (Auto) Eos % (Auto) Baso % (Auto) Lymph # (Auto) [place] # (Auto) Eos # (Auto) Baso # (Auto) Abs Immat Gran (auto) Absolute Neuts (auto) Absolute Nucleated RBC Nucleated RBC % (auto) Sodium 141 Potassium 4.4 Chloride 107 Carbon Dioxide 25 Anion Gap 13 BUN 14 Creatinine 0.94 Estim Creat Clear Calc 57.9 Estimated GFR > 60 Random Glucose 96 Calcium 9.4 Total Bilirubin 1.2 H AST 28 ALT 20 Alkaline Phosphatase 93 Troponin I High Sens < 3.5 Total Protein 7.0 Albumin 4.3 Urine Color Urine Appearance Urine pH Ur Specific [place] Urine Protein Urine Glucose (UA) Urine Ketones Urine Blood Urine Nitrite Ur Leukocyte Esterase COVID-19 (SAYDA) Negative COVID-19 Clin Com See Note 03/03/22 03/03/22 21:11 22:51 WBC 4.3 L RBC 4.57 L Hgb 13.5 L Hct 40.1 L MCV 87.7 MCH 29.5 MCHC 33.7 RDW 13.7 Plt Count 198 MPV 9.0 L Immature Gran % (Auto) 0.5 H Neut % (Auto) 55.0 Lymph % (Auto) 28.1 [place] % (Auto) 13.4 H Eos % (Auto) 2.3 Baso % (Auto) 0.7 Lymph # (Auto) 1.2 [place] # (Auto) 0.6 Eos # (Auto) 0.1 Baso # (Auto) 0.0 Abs Immat Gran (auto) 0.02 Absolute Neuts (auto) 2.4 Absolute Nucleated RBC 0.000 Nucleated RBC % (auto) 0.0 Sodium Potassium Chloride Carbon Dioxide Anion Gap BUN Creatinine Estim Creat Clear Calc Estimated GFR Random Glucose Calcium Total Bilirubin AST ALT Alkaline Phosphatase Troponin I High Sens Total Protein Albumin Urine Color YELLOW Urine Appearance CLEAR Urine pH 6.0 Ur Specific [place] 1.025 Urine Protein TRACE Urine Glucose (UA) NEG Urine Ketones NEG Urine Blood NEG Urine Nitrite NEG Ur Leukocyte Esterase NEG COVID-19 (SAYDA) COVID-19 Clin Com Imaging Radiology Impressions: ITS Impressions Chest X-Ray 03/03/22 18:35 IMPRESSION: Hypoexpanded with chronic appearing changes bilaterally but no acute superimposed process. Mental Status Exam Mental Status Exam Narrative: sedated, rousable to loud voice. smiles, non-verbal, falls back asleep. unabe to assess thoughts, mood, safety. Medications Medications Current Medications Atorvastatin Calcium (Atorvastatin Calcium 80 Mg Tablet) 80 mg PO DAILY@1500 [facility] Cyanocobalamin (Cyanocobalamin (Vitamin B-12) 1,000 Mcg Tablet) 1,000 mcg PO DAILY [facility] Folic Acid (Folic Acid 1 Mg Tablet) 1 mg PO DAILY [facility] Last Admin: 03/04/22 10:18 Dose: 1 mg Documented by: Pharmacy Consult (Consult Rx Perform Med Rec) 1 each MISCELLANE ONCE PRN PRN Reason: Consult order Quetiapine Fumarate (Quetiapine Fumarate 50 Mg Tablet) 50 mg PO DAILY [facility] Last Admin: 03/04/22 10:18 Dose: 50 mg Documented by: Quetiapine Fumarate (Quetiapine Fumarate 100 Mg Tablet) 100 mg PO DAILY@1500 [facility] Sertraline HCl (Sertraline Hcl 100 Mg Tablet) 100 mg PO DAILY [facility] Last Admin: 03/04/22 10:18 Dose: 100 mg Documented by: Thiamine HCl (Thiamine Hcl 100 Mg Tablet) 100 mg PO DAILY [facility] Last Admin: 03/04/22 10:18 Dose: 100 mg Documented by: Allergies Allergies Allergy/AdvReac Type Severity Reaction Status Date / Time bee pollen [BEE STINGS] Allergy Unknown ANAPHYLAXIS Unverified 08/07/20 14:34 simvastatin [Zocor] Allergy Unknown Verified 05/01/14 00:00 From LIPITOR Allergy Unknown LIVER Uncoded 08/07/20 14:34 BREAK DOWN Assessment & Plan Assessment & Plan (1) Dementia with behavioral disturbance: Status: Acute Code(s): F03.91 - Unspecified dementia with behavioral disturbance Plan pt is already taking seroquel 50 mg in the morning and 100 mg at 3 pm. another 50-100 mg could be added at 7 pm to combat sundowning with another 50-100 mg available daily PRN for other periods of agitation which may arise. at some point, potentially quite soon, pt's will be unable to manage him and he will need to be placed in a dementia unit. I spent ___35___ minutes with the patient and/or on the patient floor today, greater than?50% of which was spent counseling/coordinating care.
== END 2022-03-04 14:35 | disposition home or self-care (01) ==
PROVIDERS: Emergency Provider Emergency Medicine; PCP Internal Medicine
DX: F03.90 Unspecified dementia, unspecified severity, without behavioral disturbance, psychotic disturbance, mood disturbance, and anxiety (principal); F03.91 Unspecified dementia, unspecified severity, with behavioral disturbance; R41.82 Altered mental status, unspecified; Z20.822 Contact with and (suspected) exposure to COVID-19; Z79.899 Other long term (current) drug therapy
CPT/HCPCS: 71046; 80053; 81003; 84484; 85025; 87635; 93005; 96372; 99285; J1200; J2060

== ENCOUNTER 2024-12-08 08:08 | Inpatient (IN) | payer MEDICARE, SELFPAY ==
[2024-12-08] VITALS (35 sets, daily range): BP systolic 78–153; BP diastolic 31–80; PULSE 58–97; RESP 13–23; TEMP 35.9–37.1; O2SAT 90–98; BMI 23.8; BMI 25.0; BMI 24.9
--- NOTE | ~2024-12-08 | CT_ITS ---
CLINICAL HISTORY: neck trauma CT cervical spine without contrast Comparison: None Findings: Mild and moderate multilevel degenerative changes are present. No fracture or acute malalignment. Facet joints are normally imbricating. No prevertebral soft tissue edema. Impression: Degenerative changes without evidence of acute fracture or malalignment. This document has been electronically signed by: Bala Sharp MD on 12/08/2024 11:20:52
--- NOTE | ~2024-12-08 | CT_ITS ---
CLINICAL HISTORY: moaning, guarding, altered, diffuse pain CT abdomen and pelvis with contrast Comparison: 12/08/2024 10:06 AM EST: CT: CT ABDOMEN PELVIS W IV CON Findings: The lung bases are clear. The liver, spleen, adrenal glands and pancreas are unremarkable. The gallbladder is mildly distended without pericholecystic stranding. Mild fullness of the right renal collecting system without evidence of ureteral calculus. There is duplication of the right renal collecting system. Ureters appear to merge within the mid pelvis. Moderate fecal retention. No small bowel obstruction or free air. There is diverticulosis without evidence of diverticulitis. Small fluid collection within the right gluteal region, axial 64, likely small evolving hematoma. There is subcutaneous stranding along the right thigh and gluteal region greater than the left. There is moderately severe degenerative change within the lumbar spine. Moderate diffuse atherosclerotic disease. The prostate gland demonstrates coarse calcifications. Fat containing left inguinal hernia. Impression: Small fluid collection within the right gluteal region likely evolving hematoma. Asymmetric subcutaneous stranding along the right posterior thigh. No evidence of pelvic fracture or acute osseous abnormality. Diverticulosis without diverticulitis. Moderate fecal retention. Additional incidental findings. This document has been electronically signed by: Bala Sharp MD on 12/08/2024 11:23:06
--- NOTE | ~2024-12-08 | US_ITS ---
CLINICAL HISTORY: Abdominal Pain, Please Assess Biliary Tree US abdomen limited Comparison: CT/SR - CT ABDOMEN PELVIS W IV CON - 12/08/24 10:06 EST Findings: Echogenic stones and sludge are identified within the gallbladder without gallbladder wall thickening or pericholecystic fluid. Common bile duct is within normal limits. No focal lesions identified within the liver. Pancreas is obscured by overlying bowel gas. Right kidney is unremarkable. No free fluid. IMPRESSION: Cholelithiasis without ultrasound findings of cholecystitis. This document has been electronically signed by: Jasson Rodriguez MD on 12/08/2024 19:03:19
--- NOTE | ~2024-12-08 | CT_ITS ---
CLINICAL HISTORY: head trauma CT head without contrast Comparison: CT/REG/SR - CT HEAD/BRAIN WO CON - 01/01/22 11:32 EST Findings: No evidence of acute territorial infarct. There is patchy low density in the periventricular and subcortical white matter. Diffuse volume loss is noted. No hydrocephalus. No hemorrhage, mass effect, mass lesion or midline shift. No abnormal extra-axial fluid. No calvarial fracture. Paranasal sinuses and mastoid air cells are clear. Impression: No evidence of acute process. Ischemic microangiopathy and diffuse volume loss. This document has been electronically signed by: Bala Sharp MD on 12/08/2024 11:20:06
--- NOTE | ~2024-12-08 | US_ITS ---
CLINICAL HISTORY: pain, swelling Venous duplex ultrasound bilateral lower extremity Comparison: None Findings: The visualized deep veins are fully compressible with normal Doppler color flow and spectral tracings. Generalized edema throughout the subcutaneous fat within the bilateral lower extremities. No popliteal cyst. IMPRESSION: 1. Negative for bilateral lower extremity deep vein thrombosis. This document has been electronically signed by: Jasson Rodriguez MD on 12/08/2024 09:43:55
--- NOTE | ~2024-12-08 | XR_ITS ---
CLINICAL HISTORY: cough 1 view chest x-ray Comparison: CR/SR - XR CHEST 2V - 03/03/22 18:36 EDT Findings: Lungs are hypoinflated. Cardiac silhouette is within normal limits for degree of inflation. Streaky perihilar and basilar densities are more pronounced than on prior study. No pleural effusion or pneumothorax. Postsurgical change of both shoulder joints. IMPRESSION: Hypoinflation with streaky perihilar and basilar densities. This can be seen with atelectasis, bronchitis/bronchiolitis, or focal pneumonitis. This document has been electronically signed by: Jasson Rodriguez MD on 12/08/2024 09:53:07
--- NOTE | 2024-12-08 08:17 | ECG_ITS ---
Test Reason : TACHYCARDIA Blood Pressure : */* mmHG Vent. Rate : 64 BPM Atrial Rate : 64 BPM P-R Int : 216 ms QRS Dur : 82 ms QT Int : 422 ms P-R-T Axes : 67 9 40 degrees QTcB Int : 435 ms Sinus rhythm with sinus arrhythmia with 1st degree A-V block Possible Anterior infarct , age undetermined Abnormal ECG When compared with ECG of 03-Mar-2022 17:53, No significant change was found Referred By: Rimma Alejandra Electronically Signed By: Maurisio Petersen
--- NOTE | 2024-12-08 08:24 | ED.GENADULT ---
HPI - General Adult General Chief complaint: Back Pain/Injury Stated complaint: BACK PAIN Source: patient, EMS and old records reviewed Mode of arrival: EMS Limitations: altered mental status History of Present Illness ED Provider: JIMENA HPI narrative: 79 yo male with PMH of dementia and HLD EMS notes family told him them he has been moaning and not getting up no trauma or falls reported but legs are swollen and he appears to have abdominal ttp on exam. Yesterday he was given aleve and heating pad and it seemed to get better so they didn't call for help. Family heard him moaning again so they called 911. EMS notes he slid himself down out of the bed this AM to get to the floor. No trauma reported/no headstrike. MD complaint: moaning Onset (ago): day(s) (2) Severity: moderate Pain Consistency: constant Relieving factors: medication Exacerbating factors: none Associated symptoms: denies other symptoms Treatments prior to arrival: none Related Data Home Medications ?Medication ?Instructions ?Recorded ?Confirmed cyanocobalamin (vitamin B-12) 1 tab PO DAILY 12/24/20 03/04/22 1,000 mcg tablet sertraline 100 mg tablet 1 tab PO DAILY 12/24/20 12/08/24 folic acid 1 mg tablet 1 tab PO DAILY 03/04/22 03/04/22 quetiapine 50 mg tablet 50 mg PO DAILY 03/04/22 03/04/22 quetiapine 50 mg tablet 100 mg PO DAILY@1500 03/04/22 03/04/22 rosuvastatin 20 mg tablet 1 tab PO DAILY@1500 03/04/22 12/08/24 thiamine HCl (vitamin B1) 100 mg 1 tab PO DAILY 03/04/22 03/04/22 tablet quetiapine 300 mg tablet 300 mg PO BEDTIME 12/08/24 12/08/24 Previous Rx's ?Medication ?Instructions ?Recorded quetiapine 50 mg tablet 50 mg PO DAILY #30 tabs 03/04/22 Allergies Allergy/AdvReac Type Severity Reaction Status Date / Time bee pollen [BEE STINGS] Allergy Severe ANAPHYLAXIS Verified 12/08/24 11:08 simvastatin [Zocor] Allergy Unknown Unknown Verified 12/08/24 11:08 From LIPITOR Allergy Severe LIVER Uncoded 12/08/24 11:08 BREAK DOWN Review of Systems Review of Systems: ROS unable to be obtained due to dementia [facility] Past Medical History Attestation statement: The following information was validated with the patient. Source: old records reviewed Medical History Alzheimer disease Social History Social History Unable to assess alcohol history related to: Unable to respond Alcohol intake: unknown Patient Tobacco Use Status: Refuse Tobacco use screen Use of substances other than those prescribed or required for medical reasons: Unable to respond Substance Use Type: Unknown Advance Directives: No Advance Directives Information Provided: No Physical Exam ED Vital Signs: Vital Signs - 24 hr 12/08/24 08:23 12/08/24 08:46 12/08/24 09:03 Temperature 97.5 F 96.7 F L Pulse Rate 64 68 67 Respiratory Rate 18 13 Blood Pressure 108/58 L 90/43 L 122/64 Pulse Oximetry 96 Oxygen Delivery Method Room Air Oxygen Flow Rate 12/08/24 09:18 12/08/24 09:30 12/08/24 10:00 Temperature 96.9 F Pulse Rate 67 70 64 Respiratory Rate 18 18 Blood Pressure 115/56 L 115/54 L 119/65 Pulse Oximetry 96 97 Oxygen Delivery Method Room Air Room Air Oxygen Flow Rate 12/08/24 10:41 12/08/24 10:42 12/08/24 11:26 Temperature 98.6 F Pulse Rate 72 74 Respiratory Rate 17 18 Blood Pressure 86/40 L 91/39 L 97/52 L Pulse Oximetry 92 95 Oxygen Delivery Method Room Air Room Air Oxygen Flow Rate 12/08/24 12:29 12/08/24 12:52 12/08/24 12:56 Temperature 98.3 F Pulse Rate 63 72 66 Respiratory Rate 15 18 Blood Pressure 78/31 L 87/33 L 78/35 L Pulse Oximetry 96 94 Oxygen Delivery Method Room Air Room Air Oxygen Flow Rate 12/08/24 12:57 12/08/24 13:06 12/08/24 13:21 Temperature Pulse Rate 64 70 67 Respiratory Rate 18 18 Blood Pressure 78/35 L 127/66 134/73 Pulse Oximetry 95 94 Oxygen Delivery Method Room Air Room Air Oxygen Flow Rate 12/08/24 13:25 12/08/24 13:55 12/08/24 13:56 Temperature Pulse Rate 65 66 Respiratory Rate 18 Blood Pressure 137/64 145/65 H 145/60 H Pulse Oximetry 95 Oxygen Delivery Method Room Air Oxygen Flow Rate 12/08/24 15:22 12/08/24 15:32 12/08/24 15:33 Temperature Pulse Rate 67 97 69 Respiratory Rate 19 21 H Blood Pressure 137/61 141/58 H 141/58 H Pulse Oximetry 92 96 Oxygen Delivery Method Room Air Room Air Oxygen Flow Rate 12/08/24 15:35 12/08/24 15:46 12/08/24 15:59 Temperature Pulse Rate 71 62 61 Respiratory Rate 17 16 16 Blood Pressure 151/62 H 116/50 L 96/46 L Pulse Oximetry 90 L 93 Oxygen Delivery Method Room Air Nasal Cannula Oxygen Flow Rate 2 12/08/24 16:01 12/08/24 16:22 Temperature Pulse Rate 62 63 Respiratory Rate 23 H Blood Pressure 96/46 L 131/65 Pulse Oximetry 98 Oxygen Delivery Method Nasal Cannula Oxygen Flow Rate 3 BMI result Body Mass Index 23.8 Appearance: Somnolent but opens eyes to tactile and loud verbal stimuli, moaning, mild acute distress. Eyes: Pupils equal, round and reactive to light. ENT: Pharynx dry MM. no trauma noted Neck: Normal inspection. Neck supple. CVS: irregular heart rate and rhythm. Pulses normal. Respiratory: No respiratory distress. Breath sounds bases diminished Abdomen: Soft but moans louder with palpation and he also appears to be guarding : no signs of infection noted Back: no signs of trauma normal in appearance, no mass felt on buttocks or posterior thigh Skin: Skin warm and dry. Extremities: 1+ pitting edema both legs symmetric legs are warm to touch around shins and red, no abscess noted Neuro: Moaning, moves extremities away from painful stimuli Course Course Course Narrative: CT scan ordered of head and neck - family now notes he has fallen for the past month Reevaluation(s) Reevaluation #1: BP up and down one more liter of fluid after BP dropped if that does not work he will receive IV levophed Reevaluation #2: will start levophed now given pressures 1237pm stress dose steroids as I have no cause for his BP drop Reevaluation #3: no ICU beds until 7pm per Dr. Orosco Additional Reevaluation(s): off levophed 334pm back on levophed 353pm focused exam for sepsis performed at 357pm suspect drop in H/H from hemodilution I've done a recheck on buttocks there is not active bleeding Medications Administered Generic Name Dose Route Start Last Admin Trade Name Freq PRN Reason Stop Dose Admin Norepinephrine Bitartrate 8 mg in 250 mls @ 0 mls/hr 12/08/24 12:45 12/08/24 16:01 Levophed IVCONT 0.05 mcg/kg/min .Q0M ERIKA 6.28 mls/hr Titration Protocol Per Protocol Lactated Ringer's 1,000 mls @ 80 mls/hr 12/08/24 16:15 12/08/24 16:21 Lr IVCONT 80 mls/hr .[id number] ERIKA Administration Discontinued Medications Generic Name Dose Route Start Last Admin Trade Name Freq PRN Reason Stop Dose Admin Hydrocortisone Sodium Succinate 100 mg 12/08/24 12:37 12/08/24 13:01 Hydrocortisone Sod Succ/Pf 100 Mg Vial IVPUSH 12/08/24 12:38 100 mg ONCE ONE Administration Lactated Ringer's 2,010 mls @ 2,010 mls/hr 12/08/24 08:33 12/08/24 09:48 Lr 30 ml/kg infuse over 1 hr (2010 ml) 12/08/24 09:32 Infused IV Infusion .Q1H ONE Piperacillin Sod/Tazobactam 50 mls @ 100 mls/hr 12/08/24 08:33 12/08/24 09:47 Sod 3.375 gm/ Sodium Chloride IV 12/08/24 09:02 Infused ONCE ONE Infusion Albumin Human 100 mls @ 133.333 mls/hr 12/08/24 11:00 12/08/24 13:49 Kedbumin 25 % IV 12/08/24 12:44 Infused Q1H ERIKA Infusion Vancomycin HCl 1,500 mg/ 500 mls @ 333.333 mls/hr 12/08/24 12:00 12/08/24 13:49 Sodium Chloride IV 12/08/24 13:29 Infused ONCE ONE Infusion Lactated Ringer's 1,000 mls @ 999 mls/hr 12/08/24 12:19 12/08/24 12:59 Lr IV 12/08/24 13:19 Infused .Q1H1M ONE Infusion Iohexol 100 ml 12/08/24 10:23 12/08/24 10:23 Iohexol 350 Mg/Ml 100 Ml Infus..Btl IV 12/08/24 10:24 85 ml ONCE ONE Administration Morphine Sulfate 2 mg 12/08/24 08:31 12/08/24 09:05 Morphine Sulfate 2 Mg/Ml Cartridge IVPUSH 12/08/24 08:32 2 mg ONCE ONE Administration Protocol Ondansetron HCl 4 mg 12/08/24 08:31 12/08/24 09:05 Ondansetron Hcl 4 Mg/2 Ml Vial IVPUSH 12/08/24 08:32 4 mg ONCE ONE Administration Procedures Procedure Narrative Procedure Narrative: bedside ECHO no effusion, no GWMA, normal movement and EF suspected to be > 50% Medical Decision Making Medical Decision Making MDM Narrative: 79 yo male with PMH of dementia and HLD here with c/o moaning for 2 days other than he appears in pain with his abdominal palpation I am concerned about possible abdominal pathology at this time basic labs, lactic acid, EKG, cultures, CXR/UA, CT scan of abdomen. No head trauma reported and other than moaning and not wanting to get up no head trauma noted on exam and none reported. I have ordered IV morphine as well given his degree of pain. patients legs are also red hot and swollen could be cause is here (Ruma) and tells me his legs have been swollen in the past but she notes over the past week she saw the redness increasing and going up his leg - he is also not wanting to walk she tells me he is DNR/DNI she agrees with therapy so far but no ventilator or CPR Differential Diagnosis Differential Diagnoses: The differential diagnosis associated with the presentation includes wide differential history is very poor could be metabolic or infectious, constipation, obstruction longoria labs IVF 30cc/kg bolus empiric zosyn given legs CT scan of abdomen given his appearance of pain with palpation DVT study given legs Admission/Observation Consideration of admission/observation: Escalation of care including admission/observation considered admit for further monitoring and IV abx Consult Healthcare Provider Management of the patient was discussed with: [employer] (Dr. Orosco will admit after discussing case) Lab Data [facility] Lab Attestation statement: I reviewed the patient's lab results. 12/08/24 16:20 12/08/24 09:06 Labs: Lab Results 12/08/24 12/08/24 12/08/24 Range/Units 08:50 08:51 09:06 WBC 4.3 L (4.8-10.8) X10*3/uL RBC 3.77 L (4.60-5.80) X10*6/uL Hgb 11.4 L (14.0-18.0) g/dl Hct 33.0 L (42.0-52.0) % MCV 87.5 (80.0-98.0) fL MCH 30.2 (27.0-33.0) pg MCHC 34.5 (31.0-36.0) g/dl RDW 12.9 (11.0-16.0) % Plt Count 173 (160-400) X10*3/uL MPV 8.6 L (9.4-12.4) fL Immature Gran % (Auto) 0.0 (0.0-0.4) % Neut % (Auto) 57.2 (45-73) % Lymph % (Auto) 25.3 (20-40) % [place] % (Auto) 12.2 H (2-11) % Eos % (Auto) 4.4 H (0-4) % Baso % (Auto) 0.9 (0-2) % Lymph # (Auto) 1.1 L (1.2-4.9) X10*3/uL [place] # (Auto) 0.5 (0.1-1.2) X10*3/uL Eos # (Auto) 0.2 (0.0-0.4) X10*3/uL Baso # (Auto) 0.0 (0.0-0.2) X10*3/uL Abs Immat Gran (auto) 0.00 (0.00-0.03) X10*3/uL Absolute Neuts (auto) 2.5 (2.0-8.3) x10*3/uL Absolute Nucleated RBC 0.000 (0.0-0.012) X10*3/uL Nucleated RBC % (auto) 0.0 (0.0-0.2) /100WBC PT 12.6 H (10.9-12.4) SEC INR 1.1 (0.9-1.1) Sodium 140 (135-145) mmol/L Potassium 4.0 (3.3-5.1) mmol/L Chloride 107 (96-108) mmol/L Carbon Dioxide 27 (22-29) mmol/L Anion Gap 10 L (12-20) BUN 30 H (9-16) mg/dL Creatinine 0.81 (0.5-1.4) mg/dL Estim Creat Clear Calc 67.8 Estimated GFR > 60 Random Glucose 74 (60-115) mg/dL Lactic Acid 0.7 (0.5-2.0) mmol/L Calcium 8.4 D (8.4-10.2) mg/dL Magnesium 2.3 (1.6-2.6) mg/dL Total Bilirubin 1.2 H (0.0-1.0) mg/dL Direct Bilirubin 0.4 (0.0-0.5) mg/dL AST 37 (5-37) U/L ALT 21 (0-40) U/L Alkaline Phosphatase 81 (39-117) U/L Total Creatine Kinase 225 H (38-174) U/L Troponin I High Sens 4.4 (<3.5-35.0) ng/L C-Reactive Protein 1.46 H (< or = 0.50) mg/dL B-Natriuretic Peptide 36 (<100) pg/mL Total Protein 6.3 L (6.5-8.0) g/dL Albumin 3.6 (3.5-5.0) g/dL Lipase 54 (8-78) U/L TSH 5.56 H (0.32-4.0) uIU/mL Free T4 0.91 (0.71-1.85) ng/dL Urine Color Urine Appearance Urine pH (5.0-9.0) Ur Specific [place] (1.005-1.025) Urine Protein (Neg-Trace) mg/dL Urine Glucose (UA) (Negative) mg/dL Urine Ketones (Negative) mg/dL Urine Blood (Negative) Urine Nitrite (Negative) Ur Leukocyte Esterase (Negative) Influenza Type A (PCR) NEGATIVE (Negative) Influenza Type B (PCR) NEGATIVE (Negative) RSV RNA Qual (PCR) NEGATIVE (Negative) SARS-CoV-2 RNA (RT-PCR) NEGATIVE (Negative) 12/08/24 12/08/24 Range/Units 09:09 16:20 WBC 4.2 L (4.8-10.8) X10*3/uL RBC 3.41 L (4.60-5.80) X10*6/uL Hgb 10.2 L (14.0-18.0) g/dl Hct 29.8 L (42.0-52.0) % MCV 87.4 (80.0-98.0) fL MCH 29.9 (27.0-33.0) pg MCHC 34.2 (31.0-36.0) g/dl RDW 13.0 (11.0-16.0) % Plt Count 159 L (160-400) X10*3/uL MPV 8.6 L (9.4-12.4) fL Immature Gran % (Auto) 0.2 (0.0-0.4) % Neut % (Auto) 82.2 H (45-73) % Lymph % (Auto) 12.0 L (20-40) % [place] % (Auto) 4.1 (2-11) % Eos % (Auto) 1.0 (0-4) % Baso % (Auto) 0.5 (0-2) % Lymph # (Auto) 0.5 L (1.2-4.9) X10*3/uL [place] # (Auto) 0.2 (0.1-1.2) X10*3/uL Eos # (Auto) 0.0 (0.0-0.4) X10*3/uL Baso # (Auto) 0.0 (0.0-0.2) X10*3/uL Abs Immat Gran (auto) 0.01 (0.00-0.03) X10*3/uL Absolute Neuts (auto) 3.4 (2.0-8.3) x10*3/uL Absolute Nucleated RBC 0.000 (0.0-0.012) X10*3/uL Nucleated RBC % (auto) 0.0 (0.0-0.2) /100WBC PT (10.9-12.4) SEC INR (0.9-1.1) Sodium (135-145) mmol/L Potassium (3.3-5.1) mmol/L Chloride (96-108) mmol/L Carbon Dioxide (22-29) mmol/L Anion Gap (12-20) BUN (9-16) mg/dL Creatinine (0.5-1.4) mg/dL Estim Creat Clear Calc Estimated GFR Random Glucose (60-115) mg/dL Lactic Acid (0.5-2.0) mmol/L Calcium (8.4-10.2) mg/dL Magnesium (1.6-2.6) mg/dL Total Bilirubin (0.0-1.0) mg/dL Direct Bilirubin (0.0-0.5) mg/dL AST (5-37) U/L ALT (0-40) U/L Alkaline Phosphatase (39-117) U/L Total Creatine Kinase (38-174) U/L Troponin I High Sens (<3.5-35.0) ng/L C-Reactive Protein (< or = 0.50) mg/dL B-Natriuretic Peptide (<100) pg/mL Total Protein (6.5-8.0) g/dL Albumin (3.5-5.0) g/dL Lipase (8-78) U/L TSH (0.32-4.0) uIU/mL Free T4 (0.71-1.85) ng/dL Urine Color Yellow Urine Appearance Clear Urine pH 5.5 (5.0-9.0) Ur Specific [place] 1.010 (1.005-1.025) Urine Protein Negative (Neg-Trace) mg/dL Urine Glucose (UA) Negative (Negative) mg/dL Urine Ketones Negative (Negative) mg/dL Urine Blood Negative (Negative) Urine Nitrite Negative (Negative) Ur Leukocyte Esterase Negative (Negative) Influenza Type A (PCR) (Negative) Influenza Type B (PCR) (Negative) RSV RNA Qual (PCR) (Negative) SARS-CoV-2 RNA (RT-PCR) (Negative) Independent Interpretation I performed an independent interpretation of an: EKG, Plain X-Ray (no pneumonia), Ultrasound (no DVT) and CT Scan (no acute source) Interpretation: Rate: 64 Rhythm: NSR with 1st degree AVB [place]: normal Normal P waves. 1st degree Normal QRS complex. ST T wave : no SET, inverted t wave V1 qTC: 435 prior studies: no change 2021 The study has been interpreted contemporaneously by me. . Radiology Impression Discussion of test interpretation with radiology: I have reviewed the radiologist's reading. Independent Historian Clinical information obtained from an independent historian. History obtained from or confirmed by: EMS and Other (family) External Record Review External record reviewed: Outpatient record Critical Care Time Critical Care Time Critical Care Time: Yes Total Critical Care Time: 90 Attestation: repeat checks, family discussion, IVF x 2L, albumin, admission, IV pressors I attest to this time spent taking care of the patient Discharge Plan Discharge Clinical Impression: At high risk for falls, Encephalopathy acute, Acute hypotension Cellulitis Qualifiers: Site of cellulitis: extremity Site of cellulitis of extremity: lower extremity Laterality: unspecified laterality Qualified Code(s): L03.119 - Cellulitis of unspecified part of limb Patient Disposition: Admitted As Inpatient Print Language: [place]i
[2024-12-08] MEDS: LACTATED RINGERS 2010 ML IV (08:48)
[2024-12-08 08:58] LABS: MANUAL DIFF FLAG NO
[2024-12-08 09:00] LABS: Basophils Percent Auto 0.9 % (0-2); Eosinophils Absolute Auto 0.2 X10*3/uL (0.0-0.4); Eosinophils Percent Auto 4.4 % (0-4); Hemoglobin 11.4 g/dl (14.0-18.0); Lymphocytes Absolute Auto 1.1 X10*3/uL (1.2-4.9); Lymphocytes Percent Auto 25.3 % (20-40); Mean Corpuscular HGB Conc 34.5 g/dl (31.0-36.0); Mean Corpuscular Hemoglobin 30.2 pg (27.0-33.0); Mean Corpuscular Volume 87.5 fL (80.0-98.0); Mean Platelet Volume 8.6 fL (9.4-12.4); Monocytes Absolute Auto 0.5 X10*3/uL (0.1-1.2); Monocytes Percent Auto 12.2 % (2-11); Neutrophils Absolute Auto 2.5 x10*3/uL (2.0-8.3); Neutrophils Percent Auto 57.2 % (45-73); Platelet Count 173 X10*3/uL (160-400); Red Blood Count 3.77 X10*6/uL (4.60-5.80); Red Cell Distribution Width 12.9 % (11.0-16.0); White Blood Count 4.3 X10*3/uL (4.8-10.8)
[2024-12-08] MEDS: Morphine Sulfate 2 MG/ML CARTRIDGE IVPUSH (09:05)
[2024-12-08] MEDS: ondansetron HCL 4 MG/2 ML VIAL IVPUSH (09:05)
[2024-12-08 09:07] LABS: INTERNATIONAL NORM RATIO 1.1 (0.9-1.1); Prothrombin Time 12.6 SEC (10.9-12.4)
[2024-12-08] MEDS: Piperacillin Sodium/Tazobactam 3.375 GM in 0.9 % Sodium Chloride 50 ML IV ×2 (09:08→18:42)
[2024-12-08 09:17] LABS: Lactic Acid 0.7 mmol/L (0.5-2.0)
[2024-12-08 09:21] LABS: Appearance Urine Clear; Color Urine Yellow; Glucose Urine UA Negative (Negative); Leukocyte Esterase Urine Negative (Negative); Nitrite Urine Negative (Negative); PH 5.5 (5.0-9.0); Urine Blood Negative (Negative); Urine Ketones Negative (Negative); Urine Protein Negative (Neg-Trace)
[2024-12-08 09:25] LABS: B Type Natriuretic Peptide 36 pg/mL (<100)
[2024-12-08 09:30] LABS: Alanine Aminotransferase 21 U/L (0-40); Albumin Level 3.6 g/dL (3.5-5.0); Alkaline Phosphatase 81 U/L (39-117); Anion Gap 10 (12-20); Aspartate Amino Transferase 37 U/L (5-37); Bilirubin Direct 0.4 mg/dL (0.0-0.5); Bilirubin Total 1.2 mg/dL (0.0-1.0); Blood Urea Nitrogen 30 mg/dL (9-16); C Reactive Protein 1.46 mg/dL (< or = 0.50); Calcium 8.4 mg/dL (8.4-10.2); Carbon Dioxide 27 mmol/L (22-29); Chloride 107 mmol/L (96-108); Creatinine Clr Calc Pharmacy 67.8; Estimated Glomerular Filt Rate > 60; Glucose Random 74 mg/dL (60-115); Lipase 54 U/L (8-78); Magnesium 2.3 mg/dL (1.6-2.6); Sodium 140 mmol/L (135-145); Total Protein 6.3 g/dL (6.5-8.0)
--- NOTE | 2024-12-08 09:32 | PC.NURSE ---
Pt had bladder scan showing over 300ml urine; straight-cath'd for UA/sample sent; pt tolerated well; IVF's and ABX's infusing per orders
[2024-12-08 09:41] LABS: Troponin-I High Sensitivity 4.4 ng/L (<3.5-35.0)
[2024-12-08 09:55] LABS: TSH reflex Free T4 5.56 uIU/mL (0.32-4.0)
[2024-12-08] MEDS: iohexoL 350 MG/ML 100 ML INFUS..BTL IV (10:23)
[2024-12-08 11:05] LABS: Free T4 (Free Thyroxine) 0.91 ng/dL (0.71-1.85)
[2024-12-08 11:14] LABS: Influenza A PCR NEGATIVE (Negative); Influenza B PCR NEGATIVE (Negative); Resp Syncy Virus RNA Qual PCR NEGATIVE (Negative); SARS COV2 PCR INHOUSE NEGATIVE (Negative)
[2024-12-08] MEDS: Albumin Human 25 % 100 ML 133.33 ML IV ×2 (11:28→12:10)
--- NOTE | 2024-12-08 11:42 | PC.NURSE ---
pt incontinent of urine, cleaned, linens changed. [place] cath placed on pt
[2024-12-08] MEDS: vancomycin HCL 1,500 MG in 0.9 % Sodium Chloride 500 ML 333.33 MG IV (12:10)
[2024-12-08] MEDS: Lactated Ringers 1,000 ML 999 ML IV (12:24)
[2024-12-08] MEDS: Norepinephrine Bitartrate/D5W 8 MG/250 ML PLAST..BAG 6.28 MG IVCONT (12:52)
[2024-12-08] MEDS: Hydrocortisone Sod Succ/PF 100 MG VIAL IVPUSH (13:01)
--- NOTE | 2024-12-08 13:57 | PC.NURSE ---
Pt's BP's labile :100's-140's syst.; Levophed titrated down to 0.05mcg/kg/min per MD
--- NOTE | 2024-12-08 15:46 | PC.NURSE ---
Levophed drip on standby at this time; pt's BP's steadily 140's/60's; will cont to monitor/tx per orders
--- NOTE | 2024-12-08 16:00 | PC.NURSE ---
Pt's BP down to 96/46 shortly after Levophed drip held; drip restarted at baseline (0.05 mcg/kg/min); noted, pt's SAO2 87% RA while asleep; 2 ltr NC applied; MD aware
[2024-12-08] MEDS: Lactated Ringers 1,000 ML 80 ML IVCONT (16:21)
[2024-12-08 16:25] LABS: MANUAL DIFF FLAG NO
[2024-12-08 16:27] LABS: Basophils Percent Auto 0.5 % (0-2); Hematocrit 29.8 % (42.0-52.0); Hemoglobin 10.2 g/dl (14.0-18.0); Imm Gran Abs Auto 0.01 X10*3/uL (0.00-0.03); Imm Gran Pct Auto 0.2 % (0.0-0.4); Lymphocytes Absolute Auto 0.5 X10*3/uL (1.2-4.9); Mean Corpuscular HGB Conc 34.2 g/dl (31.0-36.0); Mean Corpuscular Hemoglobin 29.9 pg (27.0-33.0); Mean Corpuscular Volume 87.4 fL (80.0-98.0); Mean Platelet Volume 8.6 fL (9.4-12.4); Monocytes Absolute Auto 0.2 X10*3/uL (0.1-1.2); Monocytes Percent Auto 4.1 % (2-11); Neutrophils Absolute Auto 3.4 x10*3/uL (2.0-8.3); Neutrophils Percent Auto 82.2 % (45-73); Platelet Count 159 X10*3/uL (160-400); Red Blood Count 3.41 X10*6/uL (4.60-5.80); White Blood Count 4.2 X10*3/uL (4.8-10.8)
[2024-12-08 16:46] LABS: Anion Gap 8 (12-20); Blood Urea Nitrogen 19 mg/dL (9-16); Calcium 8.4 mg/dL (8.4-10.2); Carbon Dioxide 27 mmol/L (22-29); Chloride 111 mmol/L (96-108); Creatinine Clr Calc Pharmacy 75.2; Estimated Glomerular Filt Rate > 60; Glucose Random 113 mg/dL (60-115); Potassium 3.8 mmol/L (3.3-5.1); Sodium 142 mmol/L (135-145)
--- NOTE | 2024-12-08 16:55 | P.HPCC_ITS ---
History of Present Illness Date of Service: 12/08/24 <Skye Orosco MD - Last Filed: 12/08/24 17:07> Attending physician on admission: Skye Orosco <Skye Orosco MD - Last Filed: 12/08/24 17:07> Chief Complaint: Hypotension <Skye Orosco MD - Last Filed: 12/08/24 17:07> Patient is a 79 Y M w/ hyperlipidemia, dementia, presenting to emergency department on 12/08 w/ lower extremity edema; of note, history provided by family, who reports patient has been moaning for past days, thought to be d/t lower extremity edema/pain, w/o improvement, prompting emergency department visit; work-up in emergency department including CT H/N, chest x-ray grossly unrevealing, CT A/P demonstrating likely gluteal hematoma, DVT b/l lower extremities not suggestive of DVT, and grossly normal laboratories; patient developed hypotension, started on vasopressors, admitted to ICU for presumed b/l lower extremity cellulitis <Skye Orosco MD - Last Filed: 12/08/24 17:07> Review of Systems 2 Review of Systems: Yes Unobtainable due to mental condition <Skye Orosco MD - Last Filed: 12/08/24 17:07> [facility] Past Medical History Medical History: Medical History Alzheimer disease <Skye Orosco MD - Last Filed: 12/08/24 17:07> Social History Social History: Social History Household Members: Family Housing: Unknown / Unable to assess Unable to assess alcohol history related to: Unable to respond Alcohol intake: unknown Patient Tobacco Use Status: Tobacco use Unknown Use of substances other than those prescribed or required for medical reasons: Unable to respond Substance Use Type: Unknown Advance Directives: No Advance Directives Information Provided: No Do you have a plan to hurt others: No Plan Recently lost weight without trying: Unsure <Skye Orosco MD - Last Filed: 12/08/24 17:07> Meds Allergies/Adverse reactions: Allergies Allergy/AdvReac Type Severity Reaction Status Date / Time bee pollen [BEE STINGS] Allergy Severe ANAPHYLAXIS Verified 12/08/24 11:08 simvastatin [Zocor] Allergy Unknown Unknown Verified 12/08/24 11:08 From LIPITOR Allergy Severe LIVER Uncoded 12/08/24 11:08 BREAK DOWN <Skye Orosco MD - Last Filed: 12/08/24 17:07> Active Medications: Current Medications Enoxaparin Sodium (Enoxaparin Sodium 40 Mg/0.4 Ml Syringe) 40 mg SUBCUT Q24H ERIKA Norepinephrine Bitartrate (Levophed) 8 mg in 250 mls @ 0 mls/hr IVCONT .Q0M ERIKA; Protocol Last Titration: 12/08/24 16:01 Dose: 0.05 mcg/kg/min, 6.28 mls/hr Lactated Ringer's (Lr) 1,000 mls @ 80 mls/hr IVCONT .[id number] ERIKA Last Admin: 12/08/24 16:21 Dose: 80 mls/hr <Skye Orosco MD - Last Filed: 12/08/24 17:07> Home medications: Home Medications ?Medication ?Instructions ?Recorded ?Confirmed ?Last Taken ?Type cyanocobalamin (vitamin B-12) 1 tab PO DAILY 12/24/20 12/08/24 12/07/24 History 1,000 mcg tablet sertraline 100 mg tablet 1 tab PO DAILY 12/24/20 12/08/24 12/07/24 History folic acid 1 mg tablet 1 tab PO DAILY 03/04/22 12/08/24 12/07/24 History rosuvastatin 20 mg tablet 1 tab PO DAILY 03/04/22 12/08/24 12/07/24 History thiamine HCl (vitamin B1) 100 mg 1 tab PO DAILY 03/04/22 12/08/24 12/07/24 History tablet quetiapine 300 mg tablet 300 mg PO BEDTIME 12/08/24 12/08/24 12/07/24 History <Skye Orosco MD - Last Filed: 12/08/24 17:07> Physical Exam 2 Vital Signs: Vital Signs: Last Vital Signs Temp 98.3 F 12/08/24 12:29 Pulse 63 12/08/24 16:22 Resp 23 H 12/08/24 16:22 BP 131/65 12/08/24 16:22 Pulse Ox 98 12/08/24 16:22 O2 Del Method Nasal Cannula 12/08/24 16:22 O2 Flow Rate 3 01/18/25 16:22 BMI result Body Mass Index 23.8 <Skye Orosco MD - Last Filed: 12/08/24 17:07> ?General:? Patient non verbal, mumbles few words. Open eyes to voice ?HEENT:? Head is normocephalic, atraumatic, pupils equal round reactive to light accommodation bilaterally.? Buccal mucosa is dry, Neck is supple ?Cardiac:? Sinus, regular rate, Clear S1-S2, no murmurs rubs or gallops. ?Pulmonary:? Clear to auscultation, no wheezes, rales or rhonchi. ?Abdomen:? ?Abdomen soft, non-tender, non-distended. Normal bowel sounds. No pulsatile mass. No hepatosplenomegaly. ?Musculoskeletal:? Moving all 4 extremities randomly.? Gait not assessed at this point. ?Neurologic:? cranial nerves 2-12 are grossly intact.? No focal deficits noted.Motor strength as above.?? ?Skin: Mild redness/ warm on feet. Scattered small red bumps on bilateral lower extremities. BLE 1+ edema. No ulcers. Vascular:? 2+ pulses upper and lower extremities distally.? <Tanisha Rodríguez NP - Last Filed: 12/08/24 19:58> Results Labs CBC and Chem 7: 12/08/24 16:20 12/08/24 16:20 <Skye Orosco MD - Last Filed: 12/08/24 17:07> Labs: Laboratory Results - last 24 hr 12/08/24 12/08/24 12/08/24 08:50 08:51 09:06 MCV 87.5 MCH 30.2 MCHC 34.5 RDW 12.9 Plt Count 173 MPV 8.6 L Immature Gran % (Auto) 0.0 Neut % (Auto) 57.2 Lymph % (Auto) 25.3 [place] % (Auto) 12.2 H Eos % (Auto) 4.4 H Baso % (Auto) 0.9 Lymph # (Auto) 1.1 L [place] # (Auto) 0.5 Eos # (Auto) 0.2 Baso # (Auto) 0.0 Abs Immat Gran (auto) 0.00 Absolute Neuts (auto) 2.5 Absolute Nucleated RBC 0.000 Nucleated RBC % (auto) 0.0 PT 12.6 H INR 1.1 Anion Gap 10 L Estim Creat Clear Calc 67.8 Estimated GFR > 60 Random Glucose 74 Lactic Acid 0.7 Calcium 8.4 D Magnesium 2.3 Total Bilirubin 1.2 H Direct Bilirubin 0.4 AST 37 ALT 21 Alkaline Phosphatase 81 Total Creatine Kinase 225 H Troponin I High Sens 4.4 C-Reactive Protein 1.46 H B-Natriuretic Peptide 36 Total Protein 6.3 L Albumin 3.6 Lipase 54 TSH 5.56 H Free T4 0.91 Urine Color Urine Appearance Urine pH Ur Specific [place] Urine Protein Urine Glucose (UA) Urine Ketones Urine Blood Urine Nitrite Ur Leukocyte Esterase Influenza Type A (PCR) NEGATIVE Influenza Type B (PCR) NEGATIVE RSV RNA Qual (PCR) NEGATIVE SARS-CoV-2 RNA (RT-PCR) NEGATIVE 12/08/24 12/08/24 09:09 16:20 MCV 87.4 MCH 29.9 MCHC 34.2 RDW 13.0 Plt Count 159 L MPV 8.6 L Immature Gran % (Auto) 0.2 Neut % (Auto) 82.2 H Lymph % (Auto) 12.0 L [place] % (Auto) 4.1 Eos % (Auto) 1.0 Baso % (Auto) 0.5 Lymph # (Auto) 0.5 L [place] # (Auto) 0.2 Eos # (Auto) 0.0 Baso # (Auto) 0.0 Abs Immat Gran (auto) 0.01 Absolute Neuts (auto) 3.4 Absolute Nucleated RBC 0.000 Nucleated RBC % (auto) 0.0 PT INR Anion Gap 8 L Estim Creat Clear Calc 75.2 Estimated GFR > 60 Random Glucose 113 Lactic Acid Calcium 8.4 Magnesium Total Bilirubin Direct Bilirubin AST ALT Alkaline Phosphatase Total Creatine Kinase Troponin I High Sens C-Reactive Protein B-Natriuretic Peptide Total Protein Albumin Lipase TSH Free T4 Urine Color Yellow Urine Appearance Clear Urine pH 5.5 Ur Specific [place] 1.010 Urine Protein Negative Urine Glucose (UA) Negative Urine Ketones Negative Urine Blood Negative Urine Nitrite Negative Ur Leukocyte Esterase Negative Influenza Type A (PCR) Influenza Type B (PCR) RSV RNA Qual (PCR) SARS-CoV-2 RNA (RT-PCR) <Skye Orosco MD - Last Filed: 12/08/24 17:07> Assessment and Plan (1) Sepsis: Status: Acute <Skye Orosco MD - Last Filed: 12/08/24 17:07> (2) Acute hypotension: Status: Acute <Skye Orosco MD - Last Filed: 12/08/24 17:07> (3) Cellulitis: Qualifiers: Laterality: unspecified laterality Site of cellulitis: e xtremity Site of cellulitis of extremity: lower extremity Qualified Code(s): L 03.119 - Cellulitis of unspecified part of limb <Skye Orosco MD - Last Filed: 12/08/24 17:07> Status: Acute <Skye Orosco MD - Last Filed: 12/08/24 17:07> (4) Hematoma: Status: Acute <Skye Orosco MD - Last Filed: 12/08/24 17:07> Patient is a 79 Y M w/ hyperlipidemia, dementia, presenting to emergency department on 12/08 w/ lower extremity edema, found to be hypotensive, admitted ICU for presumed b/l lower extremity cellulitis N: dementia CV: hypotension, c/f sepsis, though w/o overt shock; norepinephrine gtt, wean as tolerated R: no acute issues GI: possible abdominal pain, though unclear; CT A/P 12/08 grossly reassuring, to follow-up abdominal US : no acute issues; to monitor electrolytes, renal indices H: no acute issues; chemical DVT prophylaxis w/ enoxaparin SQ ID: c/f sepsis, possible b/l lower extremity cellulitis, empiric vancomycin, zosyn MSK: R gluteal hematoma, to monitor closely, follow-up repeat CK E: no acute issues; to monitor hypo-/hyper-glycemia P: no acute issues <Skye Orosco MD - Last Filed: 12/08/24 17:07>
--- NOTE | 2024-12-08 17:25 | PHA.PROG ---
Admission Date/Time: December 08, 2024 16:44 Indication: Other - c/f sepsis Weight in k kg Serum Creatinine - Last 168 Hours 12/08/24 12/08/24 09:06 16:20 Creatinine 0.81 0.73 Estimated CrCl and GFR - Last 168 Hours 12/08/24 12/08/24 09:06 16:20 Estim Creat Clear Calc 67.8 75.2 Estimated GFR > 60 > 60 Vancomycin Loading Dose: 1500mg Current Vancomycin Dosing Regimen: 750 q12h Vancomycin Monitoring using AUC goal of 400 - 600 range with trough as surrogate marker: 463, predictd trough 14.8 Date and Time for next Vancomycin Level to be drawn: 12/09 @ 1999. Pharmacist Comments on Vancomycin Plan: Typically for his age range I would stick to q24h dosing. However pt has good renal function and insight was suggesting 1500 q24h to reach goal AUC, which was 22.4 mg/kg. I decided to go with 750mg q12h for this reason. Vancomycin dosing will take advantage of [employer] as a clinical decision support tool that uses Bayesian modeling to calculate individual patient's pharmacokinetic parameters and forecast the patient's drug concentration time course with the target goal AUC 24 range of 400 - 600 mg/L/hr.
--- NOTE | 2024-12-08 17:37 | PHA.MEDREC ---
Addendum entered by Katelin Gutierres RPh 12/08/24 17:59: REVIEWED BY [facility] Original Note: Pharmacy Consult ? Medication Reconciliation Pharmacy has completed the medication reconciliation. Spoke with spouse over the phone to confirm medications. Patient did not take any today.
[2024-12-08] MEDS: Enoxaparin Sodium 40 MG/0.4 ML SYRINGE SUBCUT (18:42)
--- NOTE | 2024-12-08 20:13 | HO.SKINPHOTO ---
Location: Right anterior thigh Category: Rash Stage: Length: Width: Depth: cm Location: Right lateral thigh Category: Rash Stage: Length: Width: Depth: cm Location: Left lateral thigh Category: Rash Stage: Length: Width: Depth: cm
[2024-12-08] MEDS: vancomycin HCL 750 MG in 0.9 % Sodium Chloride 250 ML 265 MG IV (21:23)
[2024-12-08] MEDS: bisacodyL 10 MG SUPP.RECT PR (21:23)
[2024-12-08 23:58] LABS: Basophils Percent Auto 0.3 % (0-2); Eosinophils Percent Auto 0.3 % (0-4); Hematocrit 29.9 % (42.0-52.0); Hemoglobin 10.1 g/dl (14.0-18.0); Imm Gran Abs Auto 0.01 X10*3/uL (0.00-0.03); Imm Gran Pct Auto 0.3 % (0.0-0.4); Lymphocytes Absolute Auto 0.7 X10*3/uL (1.2-4.9); Lymphocytes Percent Auto 20.4 % (20-40); MANUAL DIFF FLAG NO; Mean Corpuscular HGB Conc 33.8 g/dl (31.0-36.0); Mean Corpuscular Hemoglobin 29.8 pg (27.0-33.0); Mean Corpuscular Volume 88.2 fL (80.0-98.0); Mean Platelet Volume 8.9 fL (9.4-12.4); Monocytes Absolute Auto 0.3 X10*3/uL (0.1-1.2); Neutrophils Absolute Auto 2.4 x10*3/uL (2.0-8.3); Neutrophils Percent Auto 69.7 % (45-73); Platelet Count 165 X10*3/uL (160-400); Red Blood Count 3.39 X10*6/uL (4.60-5.80); Red Cell Distribution Width 13.1 % (11.0-16.0); White Blood Count 3.4 X10*3/uL (4.8-10.8)
[2024-12-09] VITALS (17 sets, daily range): BP systolic 102–143; BP diastolic 44–62; PULSE 58–88; RESP 14–25; TEMP 36.4–37.3; O2SAT 90–98; BMI 25.3; BMI 25.6
[2024-12-09 00:16] LABS: Lactic Acid 1.1 mmol/L (0.5-2.0)
[2024-12-09 00:18] LABS: Alanine Aminotransferase 23 U/L (0-40); Albumin Level 3.5 g/dL (3.5-5.0); Alkaline Phosphatase 67 U/L (39-117); Anion Gap 9 (12-20); Aspartate Amino Transferase 40 U/L (5-37); Bilirubin Total 1.4 mg/dL (0.0-1.0); Blood Urea Nitrogen 15 mg/dL (9-16); Calcium 8.3 mg/dL (8.4-10.2); Carbon Dioxide 29 mmol/L (22-29); Chloride 110 mmol/L (96-108); Creatinine Clr Calc Pharmacy 77.3; Estimated Glomerular Filt Rate > 60; Glucose Random 102 mg/dL (60-115); Sodium 144 mmol/L (135-145); Total Protein 5.6 g/dL (6.5-8.0)
[2024-12-09] MEDS: Piperacillin Sodium/Tazobactam 3.375 GM in 0.9 % Sodium Chloride 50 ML IV ×3 (01:18→16:47)
[2024-12-09] MEDS: Lactated Ringers 1,000 ML 80 ML IVCONT (05:12)
[2024-12-09 06:02] LABS: MANUAL DIFF FLAG NO
[2024-12-09 06:19] LABS: Anion Gap 12 (12-20); Blood Urea Nitrogen 15 mg/dL (9-16); Calcium 8.5 mg/dL (8.4-10.2); Carbon Dioxide 26 mmol/L (22-29); Chloride 111 mmol/L (96-108); Creatinine Clr Calc Pharmacy 81.9; Estimated Glomerular Filt Rate > 60; Glucose Random 75 mg/dL (60-115); Phosphorus 2.4 mg/dL (2.7-4.5); Potassium 3.7 mmol/L (3.3-5.1); Sodium 145 mmol/L (135-145)
[2024-12-09 06:52] LABS: Basophils Percent Auto 0.8 % (0-2); Eosinophils Absolute Auto 0.1 X10*3/uL (0.0-0.4); Eosinophils Percent Auto 1.3 % (0-4); Hematocrit 29.8 % (42.0-52.0); Hemoglobin 9.9 g/dl (14.0-18.0); Lymphocytes Absolute Auto 1.1 X10*3/uL (1.2-4.9); Lymphocytes Percent Auto 28.1 % (20-40); Mean Corpuscular HGB Conc 33.2 g/dl (31.0-36.0); Mean Corpuscular Hemoglobin 29.5 pg (27.0-33.0); Mean Corpuscular Volume 88.7 fL (80.0-98.0); Mean Platelet Volume 9.4 fL (9.4-12.4); Monocytes Absolute Auto 0.4 X10*3/uL (0.1-1.2); Monocytes Percent Auto 10.9 % (2-11); Neutrophils Absolute Auto 2.3 x10*3/uL (2.0-8.3); Neutrophils Percent Auto 58.9 % (45-73); Platelet Count 173 X10*3/uL (160-400); Red Blood Count 3.36 X10*6/uL (4.60-5.80); Red Cell Distribution Width 12.9 % (11.0-16.0); White Blood Count 3.8 X10*3/uL (4.8-10.8)
[2024-12-09] MEDS: Potassium Phosphate/NS 15 MMOL/250 ML PLAST..BAG 62.5 MMOL IV (07:27)
--- NOTE | 2024-12-09 08:15 | PC.NURSE ---
Patient given breakfast, doing good swallowing yogurt but started to cough when thin liquid introduced, reported findings to the provider
--- NOTE | 2024-12-09 08:34 | PM.CCPN ---
Subjective Subjective Date of Service: 12/09/24 Interval History: interval improvement hypotension, s/p norepinephrine gtt Critical Care Time (minutes): 0 Physical Exam Vital Signs: Vital Signs: Last Vital Signs Temp 98.7 F 12/09/24 08:00 Pulse 77 12/09/24 08:00 Resp 18 12/09/24 08:00 BP 114/54 L 12/09/24 08:00 Pulse Ox 96 12/09/24 08:00 O2 Del Method Nasal Cannula 12/09/24 08:00 O2 Flow Rate 1 12/09/24 08:00 BMI result Body Mass Index 25.6 Const: General: cooperative, healthy appearing, comfortable, no acute distress, well developed, alert, awake and Physically active HEENT: Head: Yes normal to inspection, Yes normocephalic and Yes atraumatic Eyes: General: appearance normal, both eyes and all related structures Neck: Neck: Yes normal visual inspection, Yes full ROM, Yes no meningeal signs, Yes trachea midline and Yes supple Chest: Chest palpation & inspection: normal inspection of the chest Resp: Other: no appreciable rales, rhonchi, wheezing Effort & Inspection: normal respiratory effort Cardio: Rate: regular rate Rhythm: regular rhythm GI: Inspection: Yes normal to inspection, No Abdominal wall edema and No distended Palpation (GI): Soft to palpation, not firm, nontender, no guarding and not rigid Skin: Other: very mild erythema bilateral legs, no appreciable fluctuance, induration, purulence Neuro: Other: appreciably non-verbal General: tone normal, moves all extremities, no meningeal signs and no focal motor deficits Extrem: Other: trace pitting edema to bilateral shins; compartments soft throughout b/l lower extremities General: Yes normal to inspection, Yes full ROM and Yes capillary refill normal Psych: Appearance: grossly normal Objective Data Labs 12/09/24 05:50 12/09/24 05:50 Labs: Laboratory Results - last 24 hr 12/08/24 12/08/24 12/08/24 08:50 08:51 09:06 WBC 4.3 L RBC 3.77 L Hgb 11.4 L Hct 33.0 L MCV 87.5 MCH 30.2 MCHC 34.5 RDW 12.9 Plt Count 173 MPV 8.6 L Immature Gran % (Auto) 0.0 Neut % (Auto) 57.2 Lymph % (Auto) 25.3 [place] % (Auto) 12.2 H Eos % (Auto) 4.4 H Baso % (Auto) 0.9 Lymph # (Auto) 1.1 L [place] # (Auto) 0.5 Eos # (Auto) 0.2 Baso # (Auto) 0.0 Abs Immat Gran (auto) 0.00 Absolute Neuts (auto) 2.5 Absolute Nucleated RBC 0.000 Nucleated RBC % (auto) 0.0 PT 12.6 H INR 1.1 Sodium 140 Potassium 4.0 Chloride 107 Carbon Dioxide 27 Anion Gap 10 L BUN 30 H Creatinine 0.81 Estim Creat Clear Calc 67.8 Estimated GFR > 60 Random Glucose 74 Lactic Acid 0.7 Calcium 8.4 D Phosphorus Magnesium 2.3 Total Bilirubin 1.2 H Direct Bilirubin 0.4 AST 37 ALT 21 Alkaline Phosphatase 81 Total Creatine Kinase 225 H Troponin I High Sens 4.4 C-Reactive Protein 1.46 H B-Natriuretic Peptide 36 Total Protein 6.3 L Albumin 3.6 Lipase 54 TSH 5.56 H Free T4 0.91 Urine Color Urine Appearance Urine pH Ur Specific [place] Urine Protein Urine Glucose (UA) Urine Ketones Urine Blood Urine Nitrite Ur Leukocyte Esterase Influenza Type A (PCR) NEGATIVE Influenza Type B (PCR) NEGATIVE RSV RNA Qual (PCR) NEGATIVE SARS-CoV-2 RNA (RT-PCR) NEGATIVE 12/08/24 12/08/24 12/08/24 09:09 16:20 23:50 WBC 4.2 L 3.4 L RBC 3.41 L 3.39 L Hgb 10.2 L 10.1 L Hct 29.8 L 29.9 L MCV 87.4 88.2 MCH 29.9 29.8 MCHC 34.2 33.8 RDW 13.0 13.1 Plt Count 159 L 165 MPV 8.6 L 8.9 L Immature Gran % (Auto) 0.2 0.3 Neut % (Auto) 82.2 H 69.7 Lymph % (Auto) 12.0 L 20.4 [place] % (Auto) 4.1 9.0 Eos % (Auto) 1.0 0.3 Baso % (Auto) 0.5 0.3 Lymph # (Auto) 0.5 L 0.7 L [place] # (Auto) 0.2 0.3 Eos # (Auto) 0.0 0.0 Baso # (Auto) 0.0 0.0 Abs Immat Gran (auto) 0.01 0.01 Absolute Neuts (auto) 3.4 2.4 Absolute Nucleated RBC 0.000 0.000 Nucleated RBC % (auto) 0.0 0.0 PT INR Sodium 142 144 Potassium 3.8 4.0 Chloride 111 H 110 H Carbon Dioxide 27 29 Anion Gap 8 L 9 L BUN 19 H 15 Creatinine 0.73 0.71 Estim Creat Clear Calc 75.2 77.3 Estimated GFR > 60 > 60 Random Glucose 113 102 Lactic Acid 1.1 Calcium 8.4 8.3 L Phosphorus Magnesium Total Bilirubin 1.4 H Direct Bilirubin AST 40 H ALT 23 Alkaline Phosphatase 67 Total Creatine Kinase 144 Troponin I High Sens C-Reactive Protein B-Natriuretic Peptide Total Protein 5.6 L Albumin 3.5 Lipase TSH Free T4 Urine Color Yellow Urine Appearance Clear Urine pH 5.5 Ur Specific [place] 1.010 Urine Protein Negative Urine Glucose (UA) Negative Urine Ketones Negative Urine Blood Negative Urine Nitrite Negative Ur Leukocyte Esterase Negative Influenza Type A (PCR) Influenza Type B (PCR) RSV RNA Qual (PCR) SARS-CoV-2 RNA (RT-PCR) 12/09/24 05:50 WBC 3.8 L RBC 3.36 L Hgb 9.9 L Hct 29.8 L MCV 88.7 MCH 29.5 MCHC 33.2 RDW 12.9 Plt Count 173 MPV 9.4 Immature Gran % (Auto) 0.0 Neut % (Auto) 58.9 Lymph % (Auto) 28.1 [place] % (Auto) 10.9 Eos % (Auto) 1.3 Baso % (Auto) 0.8 Lymph # (Auto) 1.1 L [place] # (Auto) 0.4 Eos # (Auto) 0.1 Baso # (Auto) 0.0 Abs Immat Gran (auto) 0.00 Absolute Neuts (auto) 2.3 Absolute Nucleated RBC 0.000 Nucleated RBC % (auto) 0.0 PT INR Sodium 145 Potassium 3.7 Chloride 111 H Carbon Dioxide 26 Anion Gap 12 BUN 15 Creatinine 0.67 Estim Creat Clear Calc 81.9 Estimated GFR > 60 Random Glucose 75 Lactic Acid Calcium 8.5 Phosphorus 2.4 L Magnesium 2.0 Total Bilirubin Direct Bilirubin AST ALT Alkaline Phosphatase Total Creatine Kinase Troponin I High Sens C-Reactive Protein B-Natriuretic Peptide Total Protein Albumin Lipase TSH Free T4 Urine Color Urine Appearance Urine pH Ur Specific [place] Urine Protein Urine Glucose (UA) Urine Ketones Urine Blood Urine Nitrite Ur Leukocyte Esterase Influenza Type A (PCR) Influenza Type B (PCR) RSV RNA Qual (PCR) SARS-CoV-2 RNA (RT-PCR) Progress Note: A&P Assessment and plan (1) Cellulitis: Status: Acute (2) Sepsis: Status: Acute Plan Patient is a 79 Y M w/ hyperlipidemia, dementia, presenting to emergency department on 12/08 w/ lower extremity edema, found to be hypotensive, admitted ICU for presumed b/l lower extremity cellulitis N: dementia CV: hypotension, c/f sepsis, though w/o overt shock, s/p norepinephrine gtt R: no acute issues GI: possible abdominal pain, though unclear; CT A/P and abdominal US 12/08 grossly reassuring : no acute issues; to monitor electrolytes, renal indices H: no acute issues; to hold chemical DVT prophylaxis in setting of R gluteal hematoma; mechanical devices ID: c/f sepsis, possible b/l lower extremity cellulitis, empiric vancomycin, zosyn MSK: R gluteal hematoma, to monitor closely E: no acute issues; to monitor hypo-/hyper-glycemia P: no acute issues Quality Stroke Does the patient have a stroke diagnosis?: No VTE Prior VTE?: No VTE Risk Level:: Medical - moderate - high VTE Device Contraindication: N/A - Device Ordered VTE Drug Contraindication: N/A - Med Ordered
[2024-12-09] MEDS: vancomycin HCL 750 MG in 0.9 % Sodium Chloride 250 ML 265 MG IV (09:44)
--- NOTE | 2024-12-09 10:56 | MHC.CM.PN ---
IMM DELIVERED TO SON ANDREY, KAROL VIA TELEPHONE. FAMILY REQUESTS THIS CM SEND WHITE COPY VIA MAIL. PT LIVES WITH SPOUSE, WORKING WITH [facility] TO SET UP SERVICES FOR PT. PT USES [facility] FOR MOBILITY WHEN FATIGUED. +HCP ON FILE AT DR. ERNST'S OFFICE PER , SHE ONLY HAS COPY OF POA AT HOME. PCP DR. DEEPAK ERNST. DP: P.T. WILL ASSIST IN DETERMINING PT'S NEEDS. IS OPEN TO WHATEVER THEY RECOMMEND AND HAVE NO PREFERENCES WITH [facility]. REFERRAL MADE TO [facility] SHOULD HOME SERVICES BE REC. PT MAY NEED BLS TRANSPORT. CM WILL CONTINUE TO FOLLOW FOR ANY CHANGE TO DC PLAN/NEEDS.
[2024-12-09] MEDS: Lactated Ringers 1,000 ML 50 ML IVCONT (15:15)
--- NOTE | 2024-12-09 17:35 | PM.EVENT ---
Event Note Date of Service: 12/09/24 Event Note: 79 Y M w/ hyperlipidemia, dementia, presenting to emergency department on 12/08 w/ lower extremity edema; of note, history provided by family, who reports patient has been moaning for past days, thought to be d/t lower extremity edema/pain, w/o improvement, prompting emergency department visit; work-up in emergency department including CT H/N, chest x-ray grossly unrevealing, CT A/P demonstrating likely gluteal hematoma, DVT b/l lower extremities not suggestive of DVT, and grossly normal laboratories; patient developed hypotension, started on vasopressors, admitted to ICU for presumed b/l lower extremity cellulitis is here ([place]) and tells me his legs have been swollen in the past but she notes over the past week she saw the redness increasing and going up his leg and he is also not wanting to walk Bilateral lower extremity cellulitis On empiric IV vanco and Zosyn Normal lactic acid, no fevers, normal WBC, normal lactic acid, no sepsis Blood cultures x2 negative Follow clinical course and deescalate antibiotics. Hypotension noted to have BP 78/31 in ED, treated with IV fluids and norepinephrine drip Hypotension likely due to high dose of Seroquel and mild dehydration BP improved will DC IV fluids Will resume low-dose of Seroquel prn Alzheimer's dementia Dementia on Seroquel 300 mg at bedtime and Zoloft 100 mg daily Continue B12, folic acid and thiamine Resume pureed and nectar thick liquids Speech therapy eval R gluteal hematoma, to monitor closely Hyperlipidemia on Crestor 20 mg daily Mechanical device DNR DNI Time Spent With Patient Time: Total time managing care of this patient today ____ minutes.
--- NOTE | 2024-12-09 17:43 | PC.NURSE ---
pt incontinent of urine, attempting to exit bed. unable to redirect pt and pt not following commands, incoherent speech, agitation and aggression towards staff while attempting to clean pt from soiled bed.
[2024-12-09 20:22] LABS: Vancomycin Trough 13.4 mcg/mL (10.0-20.0)
--- NOTE | 2024-12-09 20:28 | HE.PHANOTE ---
Re: Alexia Renal function is improving. Trough returned at 13.4. Continue current dose of 750mg q12h. I do not prefer q12h dosing fo rthis age, however pt has good renal function and would require dosing greater than 20mg/kg for 24h dosing. Predicted auc is 436, predicted trough 13.7, pt is running almost 5 higher than predictions. Next trough 12/11 @ 0800.
[2024-12-10] VITALS (9 sets, daily range): BP systolic 113–162; BP diastolic 58–74; PULSE 67–91; RESP 16–20; TEMP 37.1–37.8; O2SAT 2–96
[2024-12-10] MEDS: vancomycin HCL 750 MG in 0.9 % Sodium Chloride 250 ML 265 MG IV ×2 (00:12→11:08)
[2024-12-10] MEDS: QUEtiapine Fumarate 100 MG TABLET PO (00:13)
[2024-12-10] MEDS: Piperacillin Sodium/Tazobactam 3.375 GM in 0.9 % Sodium Chloride 50 ML IV ×2 (02:14→08:44)
[2024-12-10 07:12] LABS: MANUAL DIFF FLAG NO
[2024-12-10 07:28] LABS: Basophils Percent Auto 0.3 % (0-2); Eosinophils Absolute Auto 0.1 X10*3/uL (0.0-0.4); Hematocrit 31.3 % (42.0-52.0); Hemoglobin 10.6 g/dl (14.0-18.0); Imm Gran Abs Auto 0.04 X10*3/uL (0.00-0.03); Imm Gran Pct Auto 0.7 % (0.0-0.4); Lymphocytes Absolute Auto 0.8 X10*3/uL (1.2-4.9); Lymphocytes Percent Auto 12.7 % (20-40); Mean Corpuscular HGB Conc 33.9 g/dl (31.0-36.0); Mean Corpuscular Hemoglobin 29.9 pg (27.0-33.0); Mean Corpuscular Volume 88.4 fL (80.0-98.0); Mean Platelet Volume 9.6 fL (9.4-12.4); Monocytes Absolute Auto 0.6 X10*3/uL (0.1-1.2); Monocytes Percent Auto 9.2 % (2-11); Neutrophils Absolute Auto 4.6 x10*3/uL (2.0-8.3); Neutrophils Percent Auto 76.1 % (45-73); Platelet Count 181 X10*3/uL (160-400); Red Blood Count 3.54 X10*6/uL (4.60-5.80)
[2024-12-10 07:42] LABS: Anion Gap 12 (12-20); Blood Urea Nitrogen 16 mg/dL (9-16); Calcium 8.4 mg/dL (8.4-10.2); Carbon Dioxide 25 mmol/L (22-29); Chloride 110 mmol/L (96-108); Creatinine Clr Calc Pharmacy 69.5; Estimated Glomerular Filt Rate > 60; Glucose Random 74 mg/dL (60-115); Phosphorus 2.2 mg/dL (2.7-4.5); Potassium 3.5 mmol/L (3.3-5.1); Sodium 143 mmol/L (135-145)
[2024-12-10] MEDS: Sodium,Potassium Phosphates POWD.PACK 1 PACKET PO ×2 (08:49→20:55)
[2024-12-10] MEDS: Thiamine HCL 100 MG TABLET PO (08:49)
[2024-12-10] MEDS: Folic Acid 1 MG TABLET PO (08:49)
[2024-12-10] MEDS: Cyanocobalamin (Vitamin B-12) 1,000 MCG TABLET 1000 MCG PO (08:49)
[2024-12-10] MEDS: Sertraline HCL 100 MG TABLET PO (08:49)
--- NOTE | 2024-12-10 14:44 | MHC.CM.PN ---
Addendum entered by Trish Dumont 12/10/24 15:59: This CM placed a call to pts PCP's office to request a copy of the HCP, due to the holiday, Dr. Torre's office was closed today. This CM called pts son/primary contact Kayode to discuss discharge plans, and obtain information regarding pts previous baseline. Per Kayode, he suggested this CM call and speak with his mother Ruma, the pts about this. This CM called pts Ruma to discuss discharge plans and request information about pts previous baseline. Per pts Ruma, the pt is incontinent of urine, but he uses the toilet for BM's. Ruma states he eats ok and feeds himself, even finding his own food when hungry. Per Ruma the pt is very active at home, and will brush his own teeth etc. This CM discussed pts current baseline and pt not able to follow cues, and is total care. This CM asked Ruma if she would be able to take pt home and care for him at this current baseline, per Ruma, she said she would love to take him home and say's the house isn't the same without him. Ruma is agreeable to him receiving [facility] services at discharge, [facility] referral in place. Ruma requests we set up transport for him to go home at discharge. Pt may benefit from PT eval to assist with discharge dispo. Original Note: EMR reviewed and per MD rounds, pt is not medically cleared for discharge due to management of cellulitis.
--- NOTE | 2024-12-10 16:14 | P.PNIM_ITS ---
Subjective Subjective Date of Service: 12/10/24 Interval History: Being followed for hypotension transferred from ICU on December 09 after requiring treatment with pressors Advanced dementia unable to obtain meaningful history. Review of Systems Unable to obtain due to mental status Physical Exam 2 Vital Signs: Vital Signs: Last Vital Signs Temp 99.6 F 12/10/24 15:41 Pulse 75 12/10/24 15:41 Resp 19 12/10/24 15:41 BP 140/58 H 12/10/24 15:41 Pulse Ox 94 12/10/24 15:41 O2 Del Method Room Air 12/10/24 15:41 O2 Flow Rate 93 12/10/24 08:48 BMI result Body Mass Index 25.6 Const: Other: General resting comfortably in no acute distress, no moaning. Neck supple no JVD. CVS regular rate rhythm, Respiratory lungs clear to auscultation, no respiratory distress, no wheeze, no rhonchi. Gastrointestinal abdomen soft, non tender, bowel sounds audible Extremities b/l edema, No redness, no warmth Neuro non focal ,moving all 4 extremity Skin no rash, no hematoma Poor insight Objective Data Active Medications Bisacodyl (Bisacodyl 10 Mg Supp.Rect) 10 mg [place] BEDTIME PRN PRN Reason: Constipation Last Admin: 12/08/24 21:23 Dose: 10 mg Documented By: VEL Cyanocobalamin (Cyanocobalamin (Vitamin B-12) 1,000 Mcg Tablet) 1,000 mcg PO DAILY [facility] Last Admin: 12/10/24 08:49 Dose: 1,000 mcg Documented By: SARA Folic Acid (Folic Acid 1 Mg Tablet) 1 mg PO DAILY [facility] Last Admin: 12/10/24 08:49 Dose: 1 mg Documented By: SARA Potassium Phos/Sodium Phos (Sodium,Potassium Phosphates Powd.Pack) 1 packet PO BID [facility] Last Admin: 12/10/24 08:49 Dose: 1 packet Documented By: SARA Quetiapine Fumarate (Quetiapine Fumarate 100 Mg Tablet) 100 mg PO BEDTIME PRN PRN Reason: agitation Last Admin: 12/10/24 00:13 Dose: 100 mg Documented By: KRUNAL Sertraline HCl (Sertraline Hcl 100 Mg Tablet) 100 mg PO DAILY [facility] Last Admin: 12/10/24 08:49 Dose: 100 mg Documented By: SARA Thiamine HCl (Thiamine Hcl 100 Mg Tablet) 100 mg PO DAILY [facility] Last Admin: 12/10/24 08:49 Dose: 100 mg Documented By: SARA Labs 12/10/24 06:25 12/10/24 06:25 Labs: Laboratory Results - last 24 hr 12/09/24 12/10/24 20:02 06:25 MCV 88.4 MCH 29.9 MCHC 33.9 RDW 13.0 Plt Count 181 MPV 9.6 Immature Gran % (Auto) 0.7 H Neut % (Auto) 76.1 H Lymph % (Auto) 12.7 L [place] % (Auto) 9.2 Eos % (Auto) 1.0 Baso % (Auto) 0.3 Lymph # (Auto) 0.8 L [place] # (Auto) 0.6 Eos # (Auto) 0.1 Baso # (Auto) 0.0 Abs Immat Gran (auto) 0.04 H Absolute Neuts (auto) 4.6 Absolute Nucleated RBC 0.000 Nucleated RBC % (auto) 0.0 Anion Gap 12 Estim Creat Clear Calc 69.5 Estimated GFR > 60 Random Glucose 74 Calcium 8.4 Phosphorus 2.2 L Magnesium 2.0 Vancomycin Trough 13.4 Microbiology Microbiology Results: Microbiology 12/08/24 09:06 Blood Culture - Preliminary Blood - Venous No growth after 48 hours. 12/08/24 08:51 Blood Culture - Preliminary Blood - Venous No growth after 48 hours. Assessment and Plan (1) Hematoma: Status: Acute (2) Acute hypotension: Status: Acute (3) Cellulitis: Status: Acute Plan 79 Y M w/ hyperlipidemia, dementia, presenting to emergency department on 12/08 w/ lower extremity edema, history provided by family, who reports patient has been moaning for past days, thought to be d/t lower extremity edema/pain, w/o improvement, prompting emergency department visit; work-up in emergency department including CT H/N, chest x-ray grossly unrevealing, CT A/P demonstrating likely gluteal hematoma, DVT b/l lower extremities not suggestive of DVT, and grossly normal laboratories; patient developed hypotension, started on vasopressors, admitted to ICU for presumed b/l lower extremity cellulitis Bilateral lower extremity cellulitis no sepsis On empiric IV vanco and Zosyn Normal lactic acid, no fevers, normal WBC, normal lactic acid Blood cultures x2 negative Will DC IV antibiotics place on by mouth doxycycline Hypotension noted to have BP 78/31 in ED, treated with IV fluids and norepinephrine drip Hypotension likely due to high dose of Seroquel and mild dehydration BP improved will DC IV fluids Placed on low-dose of Seroquel prn Alzheimer's dementia on Seroquel 300 mg at bedtime and Zoloft 100 mg daily Continue B12, folic acid and thiamine Resume pureed and nectar thick liquids Speech therapy eval Dose of Seroquel reduced to 100 mg at bedtime and continue Zoloft R gluteal hematoma, normal right hip examination, moving right hip and knee without moaning Hyperlipidemia on Crestor 20 mg daily Mechanical device DNR DNI Disposition wishes to take patient home will obtain PT eval Seen by speech therapy they recommend nectar thick liquids and NDD 2 Quality Stroke Does the patient have a stroke diagnosis?: No VTE Prior VTE?: No VTE Risk Level:: Medical - moderate - high VTE Device Contraindication: N/A - Device Ordered VTE Drug Contraindication: N/A - Med Ordered
--- NOTE | 2024-12-10 16:16 | MHC.SL.SWA ---
Addendum entered and electronically signed by Eloisa Michel MS, CCC-MATERIALS AND PROCESSES MANAGER 12/10/24 16:52: Correction: NDD2 diet Original Note: Speech Pathologist Impression: Age-related dysphagia, reduced cognition may exaccerbate Risk of Aspiration Due to: Reduced Cognition Dysphasia Diet Status: Liquid Consistency and Strategies for Safe Swallow: Liquid Intake Recommendation: [place] Thick Liquid Intake Strategies: Small Sips Solid Food Consistency: Dietary Recommendations: Pureed (NDD1) Additional Modifications to Solid Foods: Oral Medication Intake: Crushed with Puree Please contact the pharmacy regarding appropriate crushable or liquid drug formulations that are available whenever modified delivery is recommended. Compensatory Strategies and Precautions to be Taken for Safe Swallow: Sitting Upright (90 deg) Small Bites and Sips Alternate Liquids/Solids Rate of Ingestion Change Supervision While Eating and Drinking for Safe Swallow: Total Supervision (1:1) Foods to Avoid: Swallowing Recommended Treatments: Compens. Strategy Educat. Recommendation for Speech: Comment: Pt needs 1:1 feeding d/t cognition and weakness, pt oriented easily to task, held cup to drink from x1 during assessment, PO tolerance WNL MATERIALS AND PROCESSES MANAGER will continue to follow Frequency/Duration: Date Range for Service Req: Timeline to reassess: Call Center Manager Clinican/Clinical Fellow: No Supervisory Statement: I have reviewed and agree with the student/clinical fellow's documentation: N/A Speech Language Pathologist: Eloisa Michel M.S., CCC-MATERIALS AND PROCESSES MANAGER
[2024-12-10] MEDS: Doxycycline Monohydrate 100 MG CAPSULE PO (17:38)
[2024-12-11] MEDS: QUEtiapine Fumarate 100 MG TABLET PO (00:53)
[2024-12-11] MEDS: Doxycycline Monohydrate 100 MG CAPSULE PO ×2 (05:52→16:33)
[2024-12-11 07:18] LABS: MANUAL DIFF FLAG NO
[2024-12-11 07:27] LABS: Basophils Percent Auto 0.4 % (0-2); Eosinophils Absolute Auto 0.1 X10*3/uL (0.0-0.4); Eosinophils Percent Auto 2.9 % (0-4); Hematocrit 29.1 % (42.0-52.0); Hemoglobin 9.8 g/dl (14.0-18.0); Imm Gran Abs Auto 0.01 X10*3/uL (0.00-0.03); Imm Gran Pct Auto 0.2 % (0.0-0.4); Lymphocytes Absolute Auto 0.9 X10*3/uL (1.2-4.9); Lymphocytes Percent Auto 19.7 % (20-40); Mean Corpuscular HGB Conc 33.7 g/dl (31.0-36.0); Mean Corpuscular Hemoglobin 30.1 pg (27.0-33.0); Mean Corpuscular Volume 89.3 fL (80.0-98.0); Mean Platelet Volume 9.7 fL (9.4-12.4); Monocytes Absolute Auto 0.5 X10*3/uL (0.1-1.2); Monocytes Percent Auto 10.7 % (2-11); Neutrophils Absolute Auto 3.1 x10*3/uL (2.0-8.3); Neutrophils Percent Auto 66.1 % (45-73); Platelet Count 151 X10*3/uL (160-400); Red Blood Count 3.26 X10*6/uL (4.60-5.80); Red Cell Distribution Width 13.2 % (11.0-16.0); White Blood Count 4.8 X10*3/uL (4.8-10.8)
[2024-12-11 07:41] VITALS: BP 126/58; PULSE 65; RESP 18; TEMP 37; O2SAT 92
[2024-12-11 07:43] LABS: Anion Gap 8 (12-20); Blood Urea Nitrogen 18 mg/dL (9-16); Calcium 8.1 mg/dL (8.4-10.2); Carbon Dioxide 26 mmol/L (22-29); Chloride 111 mmol/L (96-108); Creatinine Clr Calc Pharmacy 78.4; Estimated Glomerular Filt Rate > 60; Glucose Random 87 mg/dL (60-115); Phosphorus 2.1 mg/dL (2.7-4.5); Potassium 3.4 mmol/L (3.3-5.1); Sodium 142 mmol/L (135-145)
[2024-12-11] MEDS: Sertraline HCL 100 MG TABLET PO (09:00)
[2024-12-11] MEDS: Sodium,Potassium Phosphates POWD.PACK 1 PACKET PO ×2 (09:01→20:02)
[2024-12-11] MEDS: Cyanocobalamin (Vitamin B-12) 1,000 MCG TABLET 1000 MCG PO (09:01)
[2024-12-11] MEDS: Thiamine HCL 100 MG TABLET PO (09:01)
[2024-12-11] MEDS: Folic Acid 1 MG TABLET PO (09:01)
[2024-12-11 09:57] VITALS: BP 126/58; PULSE 65; O2SAT 92
--- NOTE | 2024-12-11 10:36 | MHC.CM.PN ---
Per MD in ROUNDS, Patient has chronic Dementia and he is medically cleared for dc to [facility], per PT's recommendation. CM spoke with Patient's /HCP/Ruma at listed # and she is agreeable to a SNF search. CM will follow.
[2024-12-11 11:07] VITALS: BP 114/61; PULSE 63; RESP 18; TEMP 36.9; O2SAT 92
--- NOTE | 2024-12-11 11:19 | MHC.CM.PN ---
Per MD, HCP will be invoked.
--- NOTE | 2024-12-11 11:26 | PM.EVENT ---
Event Note Date of Service: 12/11/24 Event Note: HCP invoked Ruma Dobbs is healthcare proxy Time Spent With Patient Time: Total time managing care of this patient today ____ minutes.
--- NOTE | 2024-12-11 11:57 | MHC.SL.SWA ---
Speech Pathologist Impression: Risk of Aspiration, Mild Oropharyngeal Dysphagia Risk of Aspiration Due to: Reduced Cognition Dysphasia Diet Status: Upgrade to NDD2 Liquid Consistency and Strategies for Safe Swallow: Liquid Intake Recommendation: Boring Thick Liquid Intake Strategies: Small Sips No Straws Solid Food Consistency: Dietary Recommendations: Grnd/Mech Altered (NDD2) Additional Modifications to Solid Foods: Diet order adjusted 12/11. Oral Medication Intake: Crushed with Puree Please contact the pharmacy regarding appropriate crushable or liquid drug formulations that are available whenever modified delivery is recommended. Compensatory Strategies and Precautions to be Taken for Safe Swallow: Sitting Upright (90 deg) No Straw Small Bites and Sips Alternate Liquids/Solids Rate of Ingestion Change Oral Check Supervision While Eating and Drinking for Safe Swallow: Total Supervision (1:1), Assist As Needed Swallowing Recommended Treatments: Compens. Strategy Educat. Recommendation for Speech: Inpatient Speech Natural Science Manager Clinican/Clinical Fellow: No Supervisory Statement: I have reviewed and agree with the student/clinical fellow's documentation: N/A Speech Language Pathologist: Rose Gordillo M.A., CCC-WELCOME CENTER AGENT
--- NOTE | 2024-12-11 12:30 | MHC.CM.PN ---
Addendum entered by Meliza Soto 12/11/24 12:32: CM addressed IMM with Ruma; original will be mailed certified mail to her and a copy has been placed on the chart. Original Note: CM spoke with /HCP/Ruma at listed #(HCP is invoked); she has chosen [facility]. Goal is for dc to [facility] tomorrow. CM will follow.
--- NOTE | 2024-12-11 12:49 | MHC.CM.PN ---
Patient will dc to [facility] tomorrow at 11 AM, via [facility]. /HCP/Ruma is aware of and in agreement with the dc plan.
--- NOTE | 2024-12-11 14:31 | HO.PM.IMPN ---
Subjective Subjective Date of Service: 12/11/24 Interval History: Baseline dementia unable to obtain history Resting in bed pleasantly confused tolerated diet Review of Systems Unable to obtain due to mental status Physical Exam Vital Signs: Vital Signs: Last Vital Signs Temp 98.4 F 12/11/24 11:07 Pulse 63 12/11/24 11:07 Resp 18 12/11/24 11:07 BP 114/61 12/11/24 11:07 Pulse Ox 92 12/11/24 11:07 O2 Del Method Room Air 12/11/24 11:07 O2 Flow Rate 93 12/10/24 08:48 BMI result Body Mass Index 25.6 Const: Other: General resting comfortably in no acute distress, no moaning. Neck supple no JVD. CVS regular rate rhythm, Respiratory lungs clear to auscultation, no respiratory distress, no wheeze, no rhonchi. Gastrointestinal abdomen soft, non tender, bowel sounds audible Extremities trace edema dorsum of foot, No redness, no warmth Neuro non focal ,moving all 4 extremity Skin no rash, no hematoma Poor insight Objective Data Active Medications Bisacodyl (Bisacodyl 10 Mg Supp.Rect) 10 mg [place] BEDTIME PRN PRN Reason: Constipation Last Admin: 12/08/24 21:23 Dose: 10 mg Documented By: VEL Cyanocobalamin (Cyanocobalamin (Vitamin B-12) 1,000 Mcg Tablet) 1,000 mcg PO DAILY [facility] Last Admin: 12/11/24 09:01 Dose: 1,000 mcg Documented By: SARA Doxycycline Monohydrate (Doxycycline Monohydrate 100 Mg Capsule) 100 mg PO Q12H [facility] Last Admin: 12/11/24 05:52 Dose: 100 mg Documented By: KRUNAL Folic Acid (Folic Acid 1 Mg Tablet) 1 mg PO DAILY [facility] Last Admin: 12/11/24 09:01 Dose: 1 mg Documented By: SARA Potassium Phos/Sodium Phos (Sodium,Potassium Phosphates Powd.Pack) 1 packet PO BID [facility] Last Admin: 12/11/24 09:01 Dose: 1 packet Documented By: SARA Quetiapine Fumarate (Quetiapine Fumarate 100 Mg Tablet) 100 mg PO BEDTIME PRN PRN Reason: agitation Last Admin: 12/11/24 00:53 Dose: 100 mg Documented By: KRUNAL Sertraline HCl (Sertraline Hcl 100 Mg Tablet) 100 mg PO DAILY [facility] Last Admin: 12/11/24 09:00 Dose: 100 mg Documented By: SARA Thiamine HCl (Thiamine Hcl 100 Mg Tablet) 100 mg PO DAILY [facility] Last Admin: 12/11/24 09:01 Dose: 100 mg Documented By: SARA Labs 12/11/24 06:44 12/11/24 06:44 Labs: Laboratory Results - last 24 hr 12/11/24 06:44 MCV 89.3 MCH 30.1 MCHC 33.7 RDW 13.2 Plt Count 151 L MPV 9.7 Immature Gran % (Auto) 0.2 Neut % (Auto) 66.1 Lymph % (Auto) 19.7 L [place] % (Auto) 10.7 Eos % (Auto) 2.9 Baso % (Auto) 0.4 Lymph # (Auto) 0.9 L [place] # (Auto) 0.5 Eos # (Auto) 0.1 Baso # (Auto) 0.0 Abs Immat Gran (auto) 0.01 Absolute Neuts (auto) 3.1 Absolute Nucleated RBC 0.000 Nucleated RBC % (auto) 0.0 Anion Gap 8 L Estim Creat Clear Calc 78.4 Estimated GFR > 60 Random Glucose 87 Calcium 8.1 L Phosphorus 2.1 L Magnesium 2.0 Microbiology Microbiology Results: Microbiology 12/08/24 09:06 Blood Culture - Preliminary Blood - Venous No growth after 48 hours. 12/08/24 08:51 Blood Culture - Preliminary Blood - Venous No growth after 48 hours. Assessment and Plan (1) Hematoma: Status: Acute (2) Acute hypotension: Status: Acute (3) Dementia with behavioral disturbance: Status: Acute Plan 79 Y M w/ hyperlipidemia, dementia, presenting to emergency department on 12/08 w/ lower extremity edema, history provided by family, who reports patient has been moaning for past days, thought to be d/t lower extremity edema/pain, w/o improvement, prompting emergency department visit; work-up in emergency department including CT H/N, chest x-ray grossly unrevealing, CT A/P demonstrating likely gluteal hematoma, DVT b/l lower extremities not suggestive of DVT, and grossly normal laboratories; patient developed hypotension, started on vasopressors, admitted to ICU for presumed b/l lower extremity cellulitis Bilateral lower extremity cellulitis no sepsis No redness noted s/p IV vanco and Zosyn in icu , transitioned to doxycycline on , will DC antibiotics on 12/12 Normal lactic acid, no fevers, normal WBC, normal lactic acid Blood cultures x2 negative Hypotension noted to have BP 78/31 in ED, treated with IV fluids and norepinephrine drip Hypotension likely due to high dose of Seroquel and mild dehydration BP improved s/p IV fluids Placed on low-dose of Seroquel 100mg prn Alzheimer's dementia on Seroquel 300 mg at bedtime and Zoloft 100 mg daily Continue B12, folic acid and thiamine Resume NDD2 and nectar thick liquids as per speech therapy Dose of Seroquel reduced to 100 mg at bedtime and continue Zoloft R gluteal hematoma, noted on CT abdomen and pelvis, normal right hip examination, no bruising noted, moving right hip and knee without moaning Hyperlipidemia on Crestor 20 mg daily Mechanical device DNR DNI Healthcare proxy invoked is healthcare proxy PT recommend short-term rehab keycase assembler arranging for safe disposition. Quality Stroke Does the patient have a stroke diagnosis?: No VTE Prior VTE?: No VTE Risk Level:: Medical - moderate - high VTE Device Contraindication: N/A - Device Ordered VTE Drug Contraindication: N/A - Med Ordered
[2024-12-11 15:58] VITALS: BP 153/72; PULSE 61; RESP 18; TEMP 36.9; O2SAT 96
[2024-12-11 20:00] VITALS: BP 124/61; PULSE 73; RESP 16; TEMP 36.9; O2SAT 95
[2024-12-12] VITALS: BP 147/68; PULSE 76; RESP 18; TEMP 36.8; O2SAT 94
[2024-12-12] MEDS: QUEtiapine Fumarate 100 MG TABLET PO (00:35)
[2024-12-12 04:00] VITALS: BP 155/67; PULSE 66; RESP 16; TEMP 36.8; O2SAT 94
[2024-12-12] MEDS: Doxycycline Monohydrate 100 MG CAPSULE PO (04:45)
[2024-12-12 06:50] LABS: MANUAL DIFF FLAG NO
[2024-12-12 07:04] LABS: Basophils Percent Auto 0.4 % (0-2); Eosinophils Absolute Auto 0.2 X10*3/uL (0.0-0.4); Eosinophils Percent Auto 3.3 % (0-4); Hematocrit 31.1 % (42.0-52.0); Hemoglobin 10.4 g/dl (14.0-18.0); Imm Gran Abs Auto 0.03 X10*3/uL (0.00-0.03); Imm Gran Pct Auto 0.6 % (0.0-0.4); Lymphocytes Absolute Auto 0.9 X10*3/uL (1.2-4.9); Lymphocytes Percent Auto 18.2 % (20-40); Mean Corpuscular HGB Conc 33.4 g/dl (31.0-36.0); Mean Corpuscular Hemoglobin 29.5 pg (27.0-33.0); Mean Corpuscular Volume 88.4 fL (80.0-98.0); Mean Platelet Volume 9.7 fL (9.4-12.4); Monocytes Absolute Auto 0.5 X10*3/uL (0.1-1.2); Neutrophils Absolute Auto 3.3 x10*3/uL (2.0-8.3); Neutrophils Percent Auto 66.5 % (45-73); Platelet Count 175 X10*3/uL (160-400); Red Blood Count 3.52 X10*6/uL (4.60-5.80); Red Cell Distribution Width 12.9 % (11.0-16.0); White Blood Count 4.9 X10*3/uL (4.8-10.8)
[2024-12-12 07:12] LABS: Anion Gap 11 (12-20); Blood Urea Nitrogen 15 mg/dL (9-16); Calcium 8.3 mg/dL (8.4-10.2); Carbon Dioxide 24 mmol/L (22-29); Chloride 108 mmol/L (96-108); Creatinine Clr Calc Pharmacy 84.5; Estimated Glomerular Filt Rate > 60; Glucose Random 87 mg/dL (60-115); Phosphorus 2.3 mg/dL (2.7-4.5); Potassium 3.7 mmol/L (3.3-5.1); Sodium 139 mmol/L (135-145)
[2024-12-12 07:16] VITALS: BP 155/71; PULSE 60; RESP 18; TEMP 36.6; O2SAT 96
[2024-12-12] MEDS: Cyanocobalamin (Vitamin B-12) 1,000 MCG TABLET 1000 MCG PO (09:19)
[2024-12-12] MEDS: Sertraline HCL 100 MG TABLET PO (09:19)
[2024-12-12] MEDS: Thiamine HCL 100 MG TABLET PO (09:19)
[2024-12-12] MEDS: Sodium,Potassium Phosphates POWD.PACK 1 PACKET PO (09:19)
[2024-12-12] MEDS: Folic Acid 1 MG TABLET PO (09:19)
--- NOTE | 2024-12-12 09:41 | PM.DS ---
DS: Providers Provider Date of Service: 12/12/24 Date of admission: 12/08/24 16:44 Date of discharge: 12/12/24 Primary care physician: Kenroy Walker MD DS: Diagnosis Discharge Diagnosis (1) Hematoma: Status: Acute (2) Acute hypotension: Status: Acute (3) Dementia with behavioral disturbance: Status: Acute DS: Summary Hospital Course Hospital Course: 79 Y M w/ hyperlipidemia, dementia, presenting to emergency department on 12/08 w/ lower extremity edema; of note, history provided by family, who reports patient has been moaning for past days, thought to be d/t lower extremity edema/pain, w/o improvement, prompting emergency department visit; work-up in emergency department including CT H/N, chest x-ray grossly unrevealing, CT A/P demonstrating likely gluteal hematoma, DVT b/l lower extremities not suggestive of DVT, and grossly normal laboratories; patient developed hypotension, started on vasopressors, admitted to ICU for presumed b/l lower extremity cellulitis. Successfully weaned off pressors and transferred to general medical floor. Remaining duration of medical save without acute issues. At this point in time he is medically acceptable to transfer to short-term rehab complete a course of oral doxycycline twice daily for 1 week. His potassium phosphate continues to be repleted and he will need a level at 1 week following repletion. Time Attestation Discharge Coordination Time (in mins): 35 Quality: Safe Use of Opioids Does Pt have an Active Cancer Diagnosis on the Problem List?: No Quality: Stroke Does the patient have a stroke diagnosis?: No Physical Exam Vital Signs: Vital Signs: Last Vital Signs Temp 97.9 F 12/12/24 07:16 Pulse 60 12/12/24 07:16 Resp 18 12/12/24 07:16 BP 155/71 H 12/12/24 07:16 Pulse Ox 96 12/12/24 07:16 O2 Del Method Room Air 12/12/24 07:16 O2 Flow Rate 93 12/10/24 08:48 BMI result Body Mass Index 25.6 Const: Other: Alert but confused (baseline) Resp: Other: Clear to auscultation bilaterally no rales rhonchi or wheezes Cardio: Other: No S4; positive S1-S2; no S3 murmurs rubs or gallops GI: Other: Soft nontender nondistended normoactive bowel sounds Extrem: Other: No edema bilaterally DS: Data Data Completed and Pending Labs on day of discharge: Laboratory Results - last 24 hr 12/12/24 06:14 WBC 4.9 RBC 3.52 L Hgb 10.4 L Hct 31.1 L MCV 88.4 MCH 29.5 MCHC 33.4 RDW 12.9 Plt Count 175 MPV 9.7 Immature Gran % (Auto) 0.6 H Neut % (Auto) 66.5 Lymph % (Auto) 18.2 L [place] % (Auto) 11.0 Eos % (Auto) 3.3 Baso % (Auto) 0.4 Lymph # (Auto) 0.9 L [place] # (Auto) 0.5 Eos # (Auto) 0.2 Baso # (Auto) 0.0 Abs Immat Gran (auto) 0.03 Absolute Neuts (auto) 3.3 Absolute Nucleated RBC 0.000 Nucleated RBC % (auto) 0.0 Sodium 139 Potassium 3.7 Chloride 108 Carbon Dioxide 24 Anion Gap 11 L BUN 15 Creatinine 0.65 Estim Creat Clear Calc 84.5 Estimated GFR > 60 Random Glucose 87 Calcium 8.3 L Phosphorus 2.3 L Magnesium 2.0 Preliminary micro results at discharge 12/08/24 09:06 Blood Culture - Preliminary Blood - Venous No growth after 48 hours. 12/08/24 08:51 Blood Culture - Preliminary Blood - Venous No growth after 48 hours. Discharge Plan Discharge Anticipated Discharge Date/Time: 12/12/24 09:37 Patient Disposition: Xfer SNF Discharge Diagnosis: Bilateral lower extremity cellulitis Referrals: [facility] [Other] - 1 Week [facility] [Outside] - 1 Week Kenroy Walker MD [Primary Care Provider] - 1 Week Discharge Medications: New doxycycline monohydrate 100 mg Capsule 100 mg PO Q12H Qty: 14 0RF potassium, sodium phosphates [Phos-NaK] 280-160-250 mg Powder In Packet 1 packet PO BID Qty: 14 0RF Continued sertraline 100 mg tablet 1 tab PO DAILY cyanocobalamin (vitamin B-12) 1,000 mcg tablet 1 tab PO DAILY thiamine HCl (vitamin B1) 100 mg tablet 1 tab PO DAILY folic acid 1 mg tablet 1 tab PO DAILY rosuvastatin 20 mg tablet 1 tab PO DAILY quetiapine 300 mg tablet 300 mg PO BEDTIME Discharge Orders: Discharge Order (Routine); Ordered 12/12/24 Ordered By: hBupendra Connelly Diet: Advance to usual diet Activity on Discharge: As tolerated Stand Alone Forms: Patient Portal Discharge page Print Language: Macanese Care Plan Goals: Complete a 7 day course of doxycycline b.i.d. to finish treatment for cellulitis. Continue K-Phos packets twice daily for 1 week. Patient will need a repeat phosphorus level at that time along with divalents Health Concerns: Continue all other meds as outlined on transfer sheet Plan of Treatment: Further plans of care as per receiving facility Assessment: See discharge summary
== END 2024-12-12 11:21 | disposition skilled nursing facility (03) | DRG 603 ==
LOC: HO.ED 11:44 → HO.EDOVER 16:59 → HO.ICU 17:21 → HO.IMC 12-09 13:37
PROVIDERS: Registered Nurse Community Health; Admitting Provider Internal Medicine Critical Care Medicine; Emergency Provider Emergency Medicine; PCP Internal Medicine; Visit Provider Hospitalist
DX: L03.116 Cellulitis of left lower limb (principal); L03.115 Cellulitis of right lower limb; Z66 Do not resuscitate; E86.0 Dehydration; I95.2 Hypotension due to drugs; S30.0XXA Contusion of lower back and pelvis, initial encounter; W19.XXXA Unspecified fall, initial encounter; T43.595A Adverse effect of other antipsychotics and neuroleptics, initial encounter; G30.9 Alzheimer's disease, unspecified; R29.6 Repeated falls; Z91.81 History of falling; F02.80 Dementia in other diseases classified elsewhere, unspecified severity, without behavioral disturbance, psychotic disturbance, mood disturbance, and anxiety; Z20.822 Contact with and (suspected) exposure to COVID-19; Z79.899 Other long term (current) drug therapy
CPT/HCPCS: 0241U; 36415; 70450; 71045; 72125; 74177; 76705; 80048; 80053; 80076; 80202; 81003; 82550; 83605; 83690; 83735; 83880; 84100; 84439; 84443; 84484; 85025; 85610; 86140; 87040; 92610; 93005; 93970; 97162; 99285; J1650; J1720; J2270; J2405; J2543; J3370; J3371; J7120; P9047; Q9967

== ENCOUNTER → 2024-12-08 08:17 | Outpatient (BNV) | payer MEDICARE, SELFPAY | PROVIDERS: Emergency Provider Emergency Medicine; Visit Provider Internal Medicine Cardiovascular Disease | DX: R94.31 Abnormal electrocardiogram [ECG] [EKG] (principal) | CPT/HCPCS: 93010 ==

== ENCOUNTER → 2024-12-08 08:18 | Outpatient (BNV) | payer MEDICARE, SELFPAY | PROVIDERS: Emergency Provider Emergency Medicine; Visit Provider Radiology Diagnostic Radiology | DX: R10.9 Unspecified abdominal pain (principal); S19.9XXA Unspecified injury of neck, initial encounter; S09.90XA Unspecified injury of head, initial encounter; M79.661 Pain in right lower leg; K59.00 Constipation, unspecified; R05.9 Cough, unspecified; M79.662 Pain in left lower leg | CPT/HCPCS: 70450; 72125; 74177 ==

== ENCOUNTER → 2024-12-08 16:44 | Outpatient (BNV) | payer MEDICARE, SELFPAY | PROVIDERS: Admitting Provider Internal Medicine Critical Care Medicine; Emergency Provider Emergency Medicine; Visit Provider Hospitalist | DX: T14.8XXA Other injury of unspecified body region, initial encounter (principal); I95.9 Hypotension, unspecified; F03.90 Unspecified dementia, unspecified severity, without behavioral disturbance, psychotic disturbance, mood disturbance, and anxiety | CPT/HCPCS: 99232; 99233; 99239; 99499 ==

== ENCOUNTER → 2024-12-08 16:44 | Outpatient (BNV) | payer MEDICARE, SELFPAY | PROVIDERS: Admitting Provider Internal Medicine Critical Care Medicine; Emergency Provider Emergency Medicine; Visit Provider Internal Medicine Critical Care Medicine | DX: A41.9 Sepsis, unspecified organism (principal); I95.9 Hypotension, unspecified; L03.119 Cellulitis of unspecified part of limb; T14.8XXA Other injury of unspecified body region, initial encounter | CPT/HCPCS: 99223; 99232 ==

== ENCOUNTER 2025-05-25 23:13 | Emergency (ER) | payer MEDICARE, SELFPAY ==
--- NOTE | 2025-05-25 | ECG_ITS ---
Test Reason : AMS Blood Pressure : */* mmHG Vent. Rate : 68 BPM Atrial Rate : 68 BPM P-R Int : 180 ms QRS Dur : 82 ms QT Int : 434 ms P-R-T Axes : 59 -10 57 degrees QTcB Int : 461 ms Sinus rhythm with occasional Premature ventricular complexes Low voltage QRS Borderline ECG When compared with ECG of 08-Dec-2024 08:35, Premature ventricular complexes are now Present ND interval has decreased Referred By: Doyle Bustillos Electronically Signed By: NICKI LAM MD
--- NOTE | ~2025-05-25 | CT_ITS ---
CLINICAL HISTORY: fall, severe dementia CT cervical spine without contrast Comparison: CT/SR - CT CERVICAL SPINE WO IV CON - 12/08/24 10:06 EST Findings: There is unchanged minimal degenerative anterolisthesis of C7 on T1. There is no fracture. There is severe C5-6 degenerative disc disease. There is multilevel mild degenerative disc disease. There is multilevel facet and uncovertebral joint osteoarthritis with associated neuroforaminal stenoses. Visualized soft tissues of the neck are unremarkable. IMPRESSION: No evidence of cervical spine injury. This document has been electronically signed by: Baljinder Mora MD on 05/26/2025 02:25:47
--- NOTE | ~2025-05-25 | CT_ITS ---
CLINICAL HISTORY: fall, altered mental status CT head without contrast Comparison: CT/SR - CT HEAD/BRAIN WO IV CON - 12/08/24 10:06 EST Findings: There is no acute intracranial hemorrhage. There is stable ex vacuo dilation of the ventricles. No mass effect or midline shift is present. The childress-white matter differentiation appears normal. There is generalized cerebral atrophy. Mild hypoattenuation in the periventricular white matter is stable and consistent with chronic small vessel ischemic disease. The visualized portions of the orbits, paranasal sinuses, and mastoids are unremarkable. No fractures are identified. IMPRESSION: No acute intracranial abnormality. This document has been electronically signed by: Baljinder Mora MD on 05/26/2025 02:20:09
[2025-05-25 23:17] VITALS: BP 143/113; BP 144/80; PULSE 60; PULSE 72; RESP 16; TEMP 36.6; O2SAT 97; O2SAT 98; BMI 23.0
--- NOTE | 2025-05-25 23:30 | ED_ITS ---
HPI - General Adult General Chief complaint: Altered Mental Status Stated complaint: fall, on floor for 12 hrs, dementia Time Seen by Provider: 05/25/25 23:30 History of Present Illness ED Provider: Tressa ORELLANA narrative: The patient is a 80-year-old male with a history of significant dementia. He has had significant dementia for several years. He lives at home with his . According to his in his son the patient has been severely demented for some time but has been able to ambulate on his own most of the time. He has had worsening trouble with feeding himself because he has developed a tendency to keep his hands in fists. The patient is also chronically incontinent and wears a diaper. According to the patient's she found the patient on the kitchen floor this morning. She and the patient share the same bed. She does not remember him getting out of the bed this morning but she believes that he probably got up on his own to go to the kitchen possibly to get something to eat or drink. She found him on the floor of the kitchen. She hypothesis is that he might have bent over to pick something up and lost his balance and fell. She says that this is not uncommon with him. She says that normally if he falls he does not injured himself. She says that he sometimes will stay on the floor for awhile and eventually get himself up. She has the impression that he enjoys being on the floor when he is on the floor. Therefore she left him on the floor this morning expecting that at some point he would get up on his own. However by this evening she became concerned that he had not gotten himself up off the floor and so she called an ambulance. Paramedics transported the patient to the hospital. The patient's says he has had very little to eat or drink today because he was on the floor all day. The patient is functionally nonverbal and is not able to give any additional history. The family says that occasionally he will say particular words but they are not necessarily meaningful or in the right context. No report of any fever, sweats, chills. No nausea or vomiting. No cough or sputum. The patient is on sertraline, rosuvastatin, and quetiapine at bedtime. Related Data Home Medications ?Medication ?Instructions ?Recorded ?Confirmed cyanocobalamin (vitamin B-12) 1,000 mcg PO DAILY 12/2405/26/25 1,000 mcg tablet sertraline 100 mg tablet 100 mg PO DAILY 12/24/2005/15 folic acid 1 mg tablet 1 mg PO DAILY 03/04/2205/26 rosuvastatin 20 mg tablet 20 mg PO DAILY 03/04/2205/15 thiamine HCl (vitamin B1) 100 mg 100 mg PO DAILY 03/0405/26/25 tablet quetiapine 300 mg tablet 150 mg PO BEDTIME 12/08/24 0 05/26/25 Allergies Allergy/AdvReac Type Severity Reaction Status Date / Time bee pollen (BEE STINGS) Allergy Severe ANAPHYLAXIS Verified 05/25/25 23:20 simvastatin (Zocor) Allergy Unknown Unknown Verified 05/25/25 23:20 From LIPITOR Allergy Severe LIVER Uncoded 05/25/25 23:20 BREAK DOWN Review of Systems 2 Review of Systems: Yes Unobtainable due to mental status PMFSH Past Medical History Medical History Alzheimer disease Social History Social History Household Members: Family Housing: Unknown / Unable to assess Unable to assess alcohol history related to: Unable to respond Alcohol intake: unknown Patient Tobacco Use Status: Tobacco use Unknown Smoked in Last 30 Days: No Use of substances other than those prescribed or required for medical reasons: Unable to respond Substance Use Type: Unknown Advance Directives: No Advance Directives Information Provided: No service: No Physical Exam ED Vital Signs: Vital Signs - 24 hr 05/27/25 14:00 05/27/25 19:56 05/27/25 22:59 Temperature 97.1 F 97.0 F 97.6 F Pulse Rate 60 97 63 Respiratory Rate 16 16 14 Blood Pressure 115/73 145/64 H 141/64 H Pulse Oximetry 98 96 98 Oxygen Delivery Method Room Air Room Air Room Air 05/28/25 06:00 05/28/25 08:27 Temperature 97.0 F 98.2 F Pulse Rate 117 H 56 Respiratory Rate 18 16 Blood Pressure 139/63 136/98 H Pulse Oximetry 93 96 Oxygen Delivery Method Room Air Room Air BMI result Body Mass Index 23.0 Const Other: The patient is a chronically ill-appearing 80-year-old. He was awake and alert but seemed very demented. His neck was in a cervical collar. He did not seem in obvious discomfort. No obvious signs of trauma. HENMT Other: Face is symmetrical. Mucous membranes were moist. No signs of facial injury. No signs of scalp injury. No raccoon eyes, no roque sign. Eyes Other: Pupils are round equal, conjunctivae are clear, extraocular movements intact Neck Other: No obvious posterior midline C-spine tenderness. The patient does not seem to be a reliable turner in of symptoms and I did not feel I could clinically clear his C-spine. However ultimately he was moving his neck without apparent discomfort. Chest Other: No chest wall tenderness Resp Effort & Inspection: normal respiratory effort Auscultation: clear to auscultation bilaterally Cardio Rate: regular rate Rhythm: regular rhythm Heart sounds: S1 normal heart sound present and S2 normal heart sound present GI Other: The abdomen was soft and seemed nontender Skin Other: Skin was dry and unremarkable Neuro Other: The patient was awake and would make eye contact. He has a paucity of speech. He made a lot of grunting noises. Pupils were round equal. Extraocular movements seemed intact. The face seems symmetrical. The tongue is midline. Occasionally the patient's spoke and would occasionally speak in discrete words but most of his vocalizations were grunting. He was not capable of any meaningful conversation. The patient has symmetrical tone in his extremities. His upper extremities seemed to have normal tone. His lower extremities seemed to have a more rigid tone but he was able to move his extremities sometimes on his own and he could put his extremities through a reasonably normal range of motion. Overall he seemed to have some mild rigidity of the lower extremities. Extrem Other: The patient seems to have some degree of stiffness to the legs, primarily in the lower legs. However if I lifted the patient's thighs the patient would keep the knee straight and the lower leg and foot would come off the bed as well. No asymmetry. No pitting edema. Psych Other: The patient seems quite significantly demented. Medications Administered Discontinued Medications Generic Name Dose Route Start Last Admin Trade Name Freq PRN Reason Stop Dose Admin Cyanocobalamin 1,000 mcg 05/26/25 13:00 05/28/25 08:27 Cyanocobalamin (Vitamin B-12) 1,000 Mcg Tablet PO 1,000 mcg DAILY ERIKA Administration Folic Acid 1 mg 05/26/25 13:00 05/28/25 08:27 Folic Acid 1 Mg Tablet PO 1 mg DAILY ERIKA Administration Sodium Chloride 1,000 mls @ 999 mls/hr 05/25/25 23:45 05/26/25 00:46 Ns IV 05/26/25 00:45 Infused .Q1H1M ERIKA Infusion Lorazepam 2 mg 05/27/25 00:23 05/27/25 00:27 Lorazepam 1 Mg Tablet PO 05/27/25 00:24 2 mg ONCE ONE Administration Pat Own Med ( 20 mg 05/27/25 09:00 05/28/25 09:50 Rosuvastatin 20 Mg PO 20 mg Tablet) DAILY ERIKA Administration Olanzapine 5 mg 05/26/25 14:43 05/26/25 15:06 Olanzapine 5 Mg Tablet PO 05/26/25 14:44 5 mg ONCE ONE Administration Olanzapine 10 mg 05/26/25 23:15 05/26/25 23:37 Olanzapine 10 Mg Tablet PO 05/26/25 23:16 10 mg ONCE ONE Administration Quetiapine Fumarate 150 mg 05/26/25 21:00 05/27/25 21:00 Quetiapine Fumarate 50 Mg Tablet PO Not Given BEDTIME ERIKA Sertraline HCl 100 mg 05/26/25 09:00 05/28/25 08:27 Sertraline Hcl 100 Mg Tablet PO 100 mg DAILY ERIKA Administration Thiamine HCl 100 mg 05/26/25 13:00 05/28/25 08:27 Thiamine Hcl 100 Mg Tablet PO 100 mg DAILY ERIKA Administration Medical Decision Making Medical Decision Making [facility] Narrative: The patient is a 80-year-old male who has been demented for several years. He lives with his . He was brought to the hospital today by ambulance after spending most of the day on the floor of his kitchen. The patient's says that usually when the patient ends up on the floor he seems to enjoy being on the floor for awhile so she has been in the habit of letting him stay on the floor until he gets himself up. Today he never got himself up off the floor and she finally called an ambulance and he was brought to the hospital. The patient is not meaningful verbal and not able to give any history or report any symptoms with any reliability. The patient had a rectal temperature on arrival of 94.4. I suspect that this was probably more related to exposure than illness. The patient's labs are not markedly abnormal. His CPK is mildly elevated. He was given IV fluids in his CPK was repeated and was stable. The patient seemed to be come more animated with hydration. He also seemed somewhat less stiff. My overall impression is that the patient is not severely acutely ill. I think it would be reasonable for the patient to be evaluated by case management and physical therapy to determine appropriate disposition. He has a negative head CT and a negative cervical spine CT. He does not seem to have any findings of significant injury or trauma on his exam elsewhere. A report of possible elder an neglect was made by the patient's nurse. This was because the patient has been allowed to stay on the floor for so long. My impression is that the the patient's typical behaviors can be quite odd as a result of his dementia and that the patient's was probably trying to humor the patient more than neglect him. Time: 15:30 Date: 05/27/25 Provider: ANDRÉS Fierro Patient in physician observation for case management needs. No acute events reported overnight.? No current issues or complaints. VS stable. Patient is pending PT/CM eval. Will continue to monitor. 05/28/2025 0827 Andreina Paredes PA-C ----> Observation continues. Case management continues to follow. 05/28/2025 0954 Andreina Paredes PA-C ----> Observation care revealed the the patient does not meet medical necessity for hospitalization. Final disposition of discharge home with and VNA discussed with the patient and the patient's who verbalized understanding and agreement. Patient completed observation care at 0954 on 05/28/2025, total time spent in observation care was 2 days, 4 hours, and 31 minutes. Lab Data 05/25/25 23:55 05/25/25 23:55 Labs: Lab Results 05/25/25 05/25/25 05/25/25 Range/Units 20:08 23:55 23:57 WBC 6.4 (4.8-10.8) X10*3/uL RBC 4.51 L D (4.60-5.80) X10*6/uL Hgb 13.9 L D (14.0-18.0) g/dl Hct 38.4 L D (42.0-52.0) % MCV 85.1 (80.0-98.0) fL MCH 30.8 (27.0-33.0) pg MCHC 36.2 H (31.0-36.0) g/dl RDW 12.8 (11.0-16.0) % Plt Count 162 (160-400) X10*3/uL MPV 9.2 L (9.4-12.4) fL Immature Gran % (Auto) 0.3 (0.0-0.4) % Neut % (Auto) 73.8 H (45-73) % Lymph % (Auto) 15.7 L (20-40) % [place] % (Auto) 8.3 (2-11) % Eos % (Auto) 1.4 (0-4) % Baso % (Auto) 0.5 (0-2) % Lymph # (Auto) 1.0 L (1.2-4.9) X10*3/uL [place] # (Auto) 0.5 (0.1-1.2) X10*3/uL Eos # (Auto) 0.1 (0.0-0.4) X10*3/uL Baso # (Auto) 0.0 (0.0-0.2) X10*3/uL Abs Immat Gran (auto) 0.02 (0.00-0.03) X10*3/uL Absolute Neuts (auto) 4.7 (2.0-8.3) x10*3/uL Absolute Nucleated RBC 0.000 (0.0-0.012) X10*3/uL Nucleated RBC % (auto) 0.0 (0.0-0.2) /100WBC Sodium 140 (135-145) mmol/L Potassium 4.4 (3.3-5.1) mmol/L Chloride 104 (96-108) mmol/L Carbon Dioxide 27 (22-29) mmol/L Anion Gap 13 (12-20) BUN 13 (9-16) mg/dL Creatinine 0.64 (0.5-1.4) mg/dL Estim Creat Clear Calc 78.3 Estimated GFR > 60 Random Glucose 79 (60-115) mg/dL Calcium 9.2 D (8.4-10.2) mg/dL Magnesium 2.2 (1.6-2.6) mg/dL Total Bilirubin 1.3 H (0.0-1.0) mg/dL AST 83 H (5-37) U/L ALT 89 H (0-40) U/L Alkaline Phosphatase 96 (39-117) U/L Total Creatine Kinase 238 H (38-174) U/L Troponin I High Sens 5.3 (<3.5-35.0) ng/L Total Protein 6.7 (6.5-8.0) g/dL Albumin 4.1 (3.5-5.0) g/dL Urine Color Yellow Urine Appearance Clear Urine pH 7.5 (5.0-9.0) Ur Specific [place] 1.015 (1.005-1.025) Urine Protein Negative (Neg-Trace) mg/dL Urine Glucose (UA) Negative (Negative) mg/dL Urine Ketones Trace (Negative) mg/dL Urine Blood Negative (Negative) Urine Nitrite Negative (Negative) Ur Leukocyte Esterase Negative (Negative) Urine RBC 0-2 (0-2) /HPF Urine WBC 0-5 (0-5) /HPF Ur Squamous Epith Cells 0-2 (0-2) /HPF Urine Bacteria None Seen (None Seen) Hyaline Casts 0-2 (0-2) /LPF Influenza Type A (PCR) NEGATIVE (Negative) Influenza Type B (PCR) NEGATIVE (Negative) RSV RNA Qual (PCR) NEGATIVE (Negative) SARS-CoV-2 RNA (RT-PCR) NEGATIVE (Negative) 07/06/25 Range/Units 03:09 WBC (4.8-10.8) X10*3/uL RBC (4.60-5.80) X10*6/uL Hgb (14.0-18.0) g/dl Hct (42.0-52.0) % MCV (80.0-98.0) fL MCH (27.0-33.0) pg MCHC (31.0-36.0) g/dl RDW (11.0-16.0) % Plt Count (160-400) X10*3/uL MPV (9.4-12.4) fL Immature Gran % (Auto) (0.0-0.4) % Neut % (Auto) (45-73) % Lymph % (Auto) (20-40) % [place] % (Auto) (2-11) % Eos % (Auto) (0-4) % Baso % (Auto) (0-2) % Lymph # (Auto) (1.2-4.9) X10*3/uL [place] # (Auto) (0.1-1.2) X10*3/uL Eos # (Auto) (0.0-0.4) X10*3/uL Baso # (Auto) (0.0-0.2) X10*3/uL Abs Immat Gran (auto) (0.00-0.03) X10*3/uL Absolute Neuts (auto) (2.0-8.3) x10*3/uL Absolute Nucleated RBC (0.0-0.012) X10*3/uL Nucleated RBC % (auto) (0.0-0.2) /100WBC Sodium (135-145) mmol/L Potassium (3.3-5.1) mmol/L Chloride (96-108) mmol/L Carbon Dioxide (22-29) mmol/L Anion Gap (12-20) BUN (9-16) mg/dL Creatinine (0.5-1.4) mg/dL Estim Creat Clear Calc Estimated GFR Random Glucose (60-115) mg/dL Calcium (8.4-10.2) mg/dL Magnesium (1.6-2.6) mg/dL Total Bilirubin (0.0-1.0) mg/dL AST (5-37) U/L ALT (0-40) U/L Alkaline Phosphatase (39-117) U/L Total Creatine Kinase 238 H (38-174) U/L Troponin I High Sens (<3.5-35.0) ng/L Total Protein (6.5-8.0) g/dL Albumin (3.5-5.0) g/dL Urine Color Urine Appearance Urine pH (5.0-9.0) Ur Specific [place] (1.005-1.025) Urine Protein (Neg-Trace) mg/dL Urine Glucose (UA) (Negative) mg/dL Urine Ketones (Negative) mg/dL Urine Blood (Negative) Urine Nitrite (Negative) Ur Leukocyte Esterase (Negative) Urine RBC (0-2) /HPF Urine WBC (0-5) /HPF Ur Squamous Epith Cells (0-2) /HPF Urine Bacteria (None Seen) Hyaline Casts (0-2) /LPF Influenza Type A (PCR) (Negative) Influenza Type B (PCR) (Negative) RSV RNA Qual (PCR) (Negative) SARS-CoV-2 RNA (RT-PCR) (Negative) Independent Interpretation I performed an independent interpretation of an: EKG Interpretation: EKG at 02/08/2036 shows sinus rhythm with occasional premature ventricular complexes at 68 beats per minute. No definite acute changes. Discharge Plan Discharge Clinical Impression: Dementia, Fall Patient Disposition: Home, Self-Care Instructions: Fall Prevention for Older Adults (ED) Additional Instructions: Follow up with your primary care provider. Return to the emergency department immediately if your symptoms worsen or if you develop any numbness, tingling, dizziness, shortness of breath, difficulty breathing, chest pain, blurry vision, loss of vision, nausea, vomiting, abdominal pain, fever, chills, back pain, or any other complaints. Please see the information below about our Patient Portal. If you are not yet enrolled in the [facility] Patient Portal, you will receive an enrollment email invitation following your visit to any [facility] [place] care setting. You may also self-enroll in the Patient Portal by visiting our website: [email or web address] The following information is required to access the Patient Portal: - Your [facility] Medical Record Number - Your personal home email address (must match what is in your electronic medical record, Registration staff can assist with this) - Name - Date of Capabilities of the Patient Portal: - Message some providers - View upcoming appointments - Access your health summary, medical history, and visit history - View current conditions and allergies - View procedure and lab results - View your medications, including guidelines, side effects, and precautions - Complete pre-appointment questionnaires requested by your provider - Ready summary reports of your office visits and procedures To access the Patient Portal Mobile Bette, follow these directions: - Search [employer] in the Bette Store or The Online [employer] Store - Download the Bette - Search for [facility] - Enter your login/password Prescriptions: No Action sertraline 100 mg tablet 100 mg PO DAILY cyanocobalamin (vitamin B-12) 1,000 mcg tablet 1,000 mcg PO DAILY thiamine HCl (vitamin B1) 100 mg tablet 100 mg PO DAILY folic acid 1 mg tablet 1 mg PO DAILY rosuvastatin 20 mg tablet 20 mg PO DAILY quetiapine 300 mg tablet 150 mg PO BEDTIME Referrals: Melia Fleming [Outside] Kenroy Walker MD [Primary Care Provider, Medical] Interventions: ED Discharge Assessment Last Done: 05/28/25 12:04 Discharge Date/Time: 05/28/25 12:49 Print Language: Unable To Collect
[2025-05-25 23:35] VITALS: TEMP 34.7
[2025-05-26] VITALS (7 sets, daily range): BP systolic 130–186; BP diastolic 36–156; PULSE 67–80; RESP 16–18; TEMP 36.1–36.9; O2SAT 96–100
[2025-05-26 00:03] LABS: MANUAL DIFF FLAG NO
[2025-05-26 00:04] LABS: Hematocrit 38.4 % (42.0-52.0); Hemoglobin 13.9 g/dl (14.0-18.0); Imm Gran Abs Auto 0.02 X10*3/uL (0.00-0.03); Imm Gran Pct Auto 0.3 % (0.0-0.4); Lymphocytes Absolute Auto 1.0 X10*3/uL (1.2-4.9); Mean Corpuscular HGB Conc 36.2 g/dl (31.0-36.0); Mean Corpuscular Hemoglobin 30.8 pg (27.0-33.0); Mean Corpuscular Volume 85.1 fL (80.0-98.0); NRBC Abs Auto 0.000 X10*3/uL (0.0-0.012); NRBC Pct Auto 0.0 /100WBC (0.0-0.2); Platelet Count 162 X10*3/uL (160-400); Red Blood Count 4.51 X10*6/uL (4.60-5.80); White Blood Count 6.4 X10*3/uL (4.8-10.8)
[2025-05-26 00:05] LABS: Appearance Urine Clear; Glucose Urine UA Negative (Negative); PH 7.5 (5.0-9.0); Specific Gravity - Urine 1.015 (1.005-1.025)
--- NOTE | 2025-05-26 00:17 | PC.NURSE ---
pt biba from home after being on the ground rolling since 729, is primary caregiver and reports this is normal behavior for him, hx dementia. initially did not want pt transported to the emergency room. pt came in c-collar and soiled with urine. reports pt has not eaten/drank today. on arrival battery charger and MD Bustillos aware. pt clothes removed and jefferson care provided. male purewick placed for incontinence. rectal probe in place temp 94.4F. ekg and labs obtained. 2nd iv placed to R forearm, ivf infusing per jan. skin is intact no ulcers noted. redness to bilat knees and R. elbow. also noted to have +3 pitting edema BLE. franko hugger in place per MD verbal. pt is on cardiac tech.
[2025-05-26 00:20] LABS: Alanine Aminotransferase 89 U/L (0-40); Albumin Level 4.1 g/dL (3.5-5.0); Alkaline Phosphatase 96 U/L (39-117); Anion Gap 13 (12-20); Aspartate Amino Transferase 83 U/L (5-37); Blood Urea Nitrogen 13 mg/dL (9-16); Calcium 9.2 mg/dL (8.4-10.2); Carbon Dioxide 27 mmol/L (22-29); Chloride 104 mmol/L (96-108); Creatinine Clr Calc Pharmacy 78.3; Estimated Glomerular Filt Rate > 60; Magnesium 2.2 mg/dL (1.6-2.6); Potassium 4.4 mmol/L (3.3-5.1); Sodium 140 mmol/L (135-145); Total Protein 6.7 g/dL (6.5-8.0)
[2025-05-26 00:27] LABS: Troponin-I High Sensitivity 5.3 ng/L (<3.5-35.0)
[2025-05-26 00:59] LABS: Resp Syncy Virus RNA Qual PCR NEGATIVE (Negative); SARS COV2 PCR INHOUSE NEGATIVE (Negative)
--- NOTE | 2025-05-26 06:10 | PC.NURSE ---
overnight VMT stated no space for additional monitoring. pt moved to bed 22 to be near nurses station and placed on hospital bed. bed alarm is on. pt is resting comfortably, singing/humming. pt is now awaiting PT/CM consult.
--- NOTE | 2025-05-26 07:26 | PC.NURSE ---
This RN assumed care of patient @ 0700. Patient pleasantly demented, smiling and answering to his name only. 20G in left AC and 20G in right forearm. Side rails up for safety as patient has tendency to roll out of bed, curtains open to be able to visualize patient from nursing station. Afebrile. Awaiting PT/ CM eval
--- NOTE | 2025-05-26 08:16 | PC.NURSE ---
Spoke with Alexander at [facility] provided update on current plan for patient. Alexander left contact info [phone] and would like to be updated on discharge plan
--- NOTE | 2025-05-26 08:26 | PC.NURSE ---
900ml of clear, pale yellow urine emptied from purewick canister. purewick placed back to suction. patient otherwise resting in no apparent distress. no sob/wob noted. respirations even/unlabored. pending PT/CM evaluation. bed alarm turned on for safety precautions. plan of care ongoing. call vargas placed within reach.
--- NOTE | 2025-05-26 10:00 | PC.NURSE ---
patient ate regular diet tray without difficulty independently. no signs of aspiration/sob noted. pt remains in upright position s/p food ingestion.
--- NOTE | 2025-05-26 10:06 | MHC.CM.PN ---
Received consult for assessment of d/c needs: Pt has dementia and is not a reliable historian: information obtained from call w/pt's spouse Ruma. Pt has Access ([facility]) 1x weekly, uses a walker at times and requires direction to complete ADL's. Ruma provides transportation for pt. Ruma notes pt's unsteady gait and weakness at home. She would like PT to ensure pt is safe to return to home. She states she would like to avoid STR if at all possible and is receptive to home PT through [facility] - referral made. Pt to hold in ED for PT eval on 05/27. HCP on file.
--- NOTE | 2025-05-26 10:27 | PC.NURSE ---
patient provided w/ additional regular diet tray as patient did not have anything to eat/nor drink since the day NO BAKE MOLDER. patient continues to consume food w/o difficulty.
--- NOTE | 2025-05-26 10:34 | PHA.MEDREC ---
Addendum entered by Jigna Ramirez [facility] 05/26/25 10:35: pt's said she cuts seroquel in half every night Original Note: Pharmacy Consult ? Medication Reconciliation Pharmacy has completed the medication reconciliation, spoke to pt's Ruma who confirmed all medications over the phone.
--- NOTE | 2025-05-26 11:50 | PC.NURSE ---
vital signs obtained/wnl aside pt being hypertensive. pt noted to be fidgeting his LUE while obtaining BP. blood pressure obtained on opposite side still displaying hypertension. provider notified/aware. plan of care ongoing.
--- NOTE | 2025-05-26 14:58 | PC.NURSE ---
patient continuously restless/attempting to get OOB despite being a high fall risk. VMT camera set up for additional safety precautions. bedside for support. bed alarm remains in place. plan of care ongoing.
--- NOTE | 2025-05-26 16:28 | PC.NURSE ---
patient checked for incontinence. no urinary incontinence noted. new pads placed. pt turned/repositioned to comfort. purewick canister emptied - 600ml of urine documented in I&Os. VMT/bed alarm remains in place for safety precautions. plan of care ongoing.
--- NOTE | 2025-05-26 16:34 | MHC.EDTECH ---
The RN and I changed and repositioned the patient
--- NOTE | 2025-05-26 21:18 | MHC.EDTECH ---
The RN and I changed and repositioned the patient. He also had a xl BM
--- NOTE | 2025-05-26 23:34 | PC.NURSE ---
pt is restless multiple attempts trying to get oob, unable to verbally redirect. hyperverbal. spoke with ANDRÉS Chacon. ordered PO Zyprexa.
--- NOTE | 2025-05-27 00:40 | PC.NURSE ---
sx did not improve with PO Zyprexa given per mar. agitation/restlessness worsened. needing 1:1 at this time for safety. bed alarm and vmt in place. given ativan per mar.
[2025-05-27 05:02] VITALS: BP 121/43; PULSE 66; RESP 16; TEMP 36.6; O2SAT 96
--- NOTE | 2025-05-27 05:46 | PC.NURSE ---
pt was found to be incontinent of urine. bed linen changed and jefferson care given. new male purewick in place. 1200mL urine emptied from suction. bed alarm and vmt in place. pt became slight agitated during change but now sleeping. resp even and unlabored.
--- NOTE | 2025-05-27 11:04 | MHC.CM.ED ---
Patient remains in ER overflow. Physical therapy eval is pending to determine safe d/c plan. Continue to monitor for d/c needs.
--- NOTE | 2025-05-27 13:24 | MHC.CM.ED ---
Physical therapy attempted to meet with patient twice. Both times patient was sleeping. Spoke with patient's , Ruma, via telephone at [phone]. Ruma states patient has been switching his sleep/wake cycle recently. Ruma agreeable to patient staying overnight so physical therapy can re-attempt eval tomorrow. Continue to monitor for d/c needs.
[2025-05-27 14:00] VITALS: BP 115/73; PULSE 60; RESP 16; TEMP 36.2; O2SAT 98
--- NOTE | 2025-05-27 17:06 | PC.NURSE ---
report was taken fro previous rn @ 1500, report pt has not been arousable for any medical care today, he only mumbles and withdraws. Wale continues to only mumble and pull away when this rn attemtps to wake him for dinner. His resps are nonlabored and his radial pulses are strong and regular with wpd skin. there is a camera at bedside for saftey.
[2025-05-27 19:56] VITALS: BP 145/64; PULSE 97; RESP 16; TEMP 36.1; O2SAT 96
[2025-05-27 22:59] VITALS: BP 141/64; PULSE 63; RESP 14; TEMP 36.4; O2SAT 98
[2025-05-28 06:00] VITALS: BP 139/63; PULSE 117; RESP 18; TEMP 36.1; O2SAT 93
--- NOTE | 2025-05-28 06:14 | PC.NURSE ---
pt slept though majority of shift, awaking to touch but becoming slightly agitated, ankit extremities but calmed down with therapeutic communicatoin to allow vitals. too somnolent last evening to safely administer PO seroquel. changes own position in bed often. pt spoke clearly yes and opening eyes on command at 0600 this morning, proceeded to say mhm while smiling when asked if he understand me then pulled blanket over head again. no signs of distress observed. overnight produced about 450 mL of dark yellow urine collected with male purewick. bed alarm on, T camera in place. call vargas in reach
--- NOTE | 2025-05-28 06:24 | PC.NURSE ---
pt now keeping eyes open lying in bed appears to be streching/groaning/smiling. urinated another 100-200 mL through purewick
[2025-05-28 08:27] VITALS: BP 136/98; PULSE 56; RESP 16; TEMP 36.8; O2SAT 96
--- NOTE | 2025-05-28 09:47 | MHC.CM.ED ---
Addendum entered by Meg Vital 05/28/25 10:21: CLAUDIA will not be able to provide physical therapy until next week. Melia is able to start sooner. Original Note: Patient remains in ER overflow. Physical therapy eval completed. Short term rehab is recommended. Patient has a history of advanced dementia. Spoke with patient's /HCP, Ruma via telephone at [phone]. Above info relayed to Ruma. Ruma feels patient does not do well in rehab due to his dementia and requests patient return home. VNA will be arranged for patient. [facility] booked for 1230pm. Patient, Danii Hendrix RN and Andreina BOWEN aware. Continue to monitor for d/c needs.
[2025-05-28] MEDS: [UNRECOGNIZED DRUG - OTHER] 20 EACH PO (09:50)
[2025-05-28 12:04] VITALS: BP 145/73; PULSE 61; RESP 16; TEMP 37.1; O2SAT 98
== END 2025-05-28 12:49 | disposition home or self-care (01) ==
PROVIDERS: Emergency Provider Emergency Medicine; PCP Internal Medicine
DX: S09.90XA Unspecified injury of head, initial encounter (principal); F03.90 Unspecified dementia, unspecified severity, without behavioral disturbance, psychotic disturbance, mood disturbance, and anxiety; R51.9 Headache, unspecified; M54.2 Cervicalgia; X58.XXXA Exposure to other specified factors, initial encounter; Y93.9 Activity, unspecified; Y92.9 Unspecified place or not applicable; Y99.8 Other external cause status; Z03.818 Encounter for observation for suspected exposure to other biological agents ruled out; Z79.899 Other long term (current) drug therapy
CPT/HCPCS: 36415; 70450; 72125; 80053; 81001; 82550; 83735; 84484; 85025; 87637; 93005; 96360; 97162; 99285

== ENCOUNTER → 2025-05-25 23:36 | Outpatient (BNV) | payer MEDICARE, SELFPAY | PROVIDERS: Emergency Provider Emergency Medicine; Visit Provider Internal Medicine Cardiovascular Disease | DX: I49.3 Ventricular premature depolarization (principal) | CPT/HCPCS: 93010 ==

== ENCOUNTER → 2025-05-26 00:02 | Outpatient (BNV) | payer MEDICARE, SELFPAY | PROVIDERS: Emergency Provider Emergency Medicine; Visit Provider Radiology Diagnostic Radiology | DX: F03.90 Unspecified dementia, unspecified severity, without behavioral disturbance, psychotic disturbance, mood disturbance, and anxiety (principal); R41.82 Altered mental status, unspecified; W19.XXXA Unspecified fall, initial encounter | CPT/HCPCS: 70450; 72125 ==

== ENCOUNTER 2025-08-19 15:50 | Emergency (ER) | payer MEDICARE, SELFPAY ==
[2025-08-19 15:59] VITALS: BP 118/82; PULSE 72; O2SAT 98; BMI 24.4
[2025-08-19 16:05] VITALS: BP 165/68; PULSE 67; RESP 17; TEMP 36.2; O2SAT 100
--- NOTE | 2025-08-19 16:14 | ED_ITS ---
HPI - Wound/Laceration General Chief Complaint: Wound/Laceration Stated Complaint: Laceration rt hand Time Seen by Provider: 08/19/25 16:14 Source: patient and EMS Mode of arrival: EMS Limitations: no limitations History of Present Illness ED Provider: Frankie aMrte PA-C HPI narrative: 80 yo male with history of dementia with behavioral disturbance who presents to the ER from home via EMS for evaluation of a wound to the palm of the right hand that is bleeding and foul smelling for the last 3 days. Per documentation patient's dementia has been progressing. He keeps his hands in fists for the last several months. His noticed on Tuesday that there was bleeding from his right hand. He keeps his hands clenched and would not allow her or anyone to open the hand to evaluate it. Over the course of the weekend the hand started to have foul smell and odor with yellow drainage. She reports he keeps digging his nails into his palms and causes bleeding. He also reportedly had new foul smelling urine. He is incontinent at baseline. ROS otherwise unable to obtain. Onset (ago): day(s) Extremity Location: right: hand Place: home Context: self-inflicted assault Associated symptoms: pain Related Data Home Medications ?Medication ?Instructions ?Recorded ?Confirmed cyanocobalamin (vitamin B-12) 1,000 mcg PO DAILY 12/2408/20/25 1,000 mcg tablet sertraline 100 mg tablet 100 mg PO DAILY 12/24/20 folic acid 1 mg tablet 1 mg PO DAILY 03/04/2208/20 rosuvastatin 20 mg tablet 20 mg PO DAILY 03/04/2207/24 thiamine HCl (vitamin B1) 100 mg 100 mg PO DAILY 03/0408/20/25 tablet quetiapine 300 mg tablet 150 mg PO BEDTIME 12/08/24 0 08/20/25 Allergies Allergy/AdvReac Type Severity Reaction Status Date / Time bee pollen (BEE STINGS) Allergy Severe ANAPHYLAXIS Verified 08/19/25 16:02 simvastatin (Zocor) Allergy Unknown Unknown Verified 08/19/25 16:02 From LIPITOR Allergy Severe LIVER Uncoded 08/19/25 16:02 BREAK DOWN Review of Systems 2 Review of Systems: Yes Unobtainable due to mental condition and Unobtainable due to mental status PMFSH Past Medical History Medical History Alzheimer disease Social History Social History Household Members: Family Housing: Unknown / Unable to assess Unable to assess alcohol history related to: Unable to respond Alcohol intake: unknown Patient Tobacco Use Status: Tobacco use Unknown Smoked in Last 30 Days: No Use of substances other than those prescribed or required for medical reasons: Unable to respond Substance Use Type: Unknown Advance Directives: Yes Advance Directives on File: Yes Advance Directives Date on File: 12/13/24 Do you have a plan to hurt others: No Plan service: No Physical Exam 2 Exam: Exam: Appearance: Alert, elderly male laying in bed muttering to himself. no distress. poorly kempt Head: normocephalic, atraumatic. Eyes: Pupils equal, round and reactive to light. ENT: Pharynx normal. No tonsillar swelling or exudate. Neck: Normal inspection. Neck supple. CVS: Normal heart rate and rhythm. Pulses normal. Respiratory: No respiratory distress. Breath sounds normal. Abdomen: Soft and nontender. +BS x4 Skin: Skin warm and dry. Normal skin color. Normal skin turgor. No rashes. Extremities: right hand with circumfrential swelling, hand clenched in a fist with dried blood on the palm and and fingernail. foul smelling. right hand was able to be pried open w/ staff revealing a macerated, erythematous hand with a 2cm laceration without active bleeding, small amount of purulent drainage, fingernails thick and yellow, 4th digit fingernail partially broken off in the wound Neuro/psych: awake, alert, moving all extremities, talking to himself, not following commands, resistant to care Vital Signs: Vital Signs: Last Vital Signs Temp 97.4 F 08/20/25 05:55 Pulse 67 08/20/25 05:55 Resp 18 08/20/25 05:55 BP 115/67 08/20/25 05:55 Pulse Ox 97 08/20/25 05:55 O2 Del Method Room Air 08/20/25 05:55 BMI result Body Mass Index 24.4 Course Reevaluation(s) Reevaluation #1: Physician observation started at 1743. Patient placed in physician observation because patient has an infected wound on his right palm that is self-inflicted. At the time observation was started patient's vital signs were stable. Patient is alert at his mental status baseline. CV: RRR and lungs are clear. Will continue to monitor. Reevaluation #2: case management spoke with who would like to take the patient home for wound care. she is trying to sign him on to hospice, planned in the next 3 weeks or so. OT c/s placed for comfort/assistance with hand pain and clenching. PO abx ordered. UA still pending. will place referrals for home care/wound care. will monitor overnight and reassess dispo plan in the morning Reevaluation #3: 08/20/25 0805 HOWIE Black: Patient remains on physician observation, no overnight events reported by nursing. Possible discharge home with wound care, as patient is awaiting hospice consult with [facility]. following for disposition. 08/20/25 14:13 HOWIE Black: Per Meg from , patient will be discharged home with VNA for SN, PT, OT this afternoon. Recommendations from wound care nurse as follows: Recommendations: Right Hand - Cleanse with normal saline or PH balanced wipes, dry well. Apply Durafiber AG to wound bed cover with foam or gauze dressing to pad area. Secure with wrap. Change every other day. Recommend outpt provider follow up for nail trimming. Recommend outpt follow up to wound clinic if wound does not show signs of healing over the next 2 weeks. Re-consult wound care Nurse for wound deterioration or wound changes. Observation care revealed that patient does not meet medical necessity for hospitalization. Final disposition discussed with patient. The patient completed observation care at 1630 on 08/20/25. Medications Administered Generic Name Dose Route Start Last Admin Trade Name Freq PRN Reason Stop Dose Admin Atorvastatin Calcium 80 mg 08/20/25 10:00 08/20/25 10:14 Atorvastatin Calcium 80 Mg Tablet PO 80 mg DAILY ERIKA Administration Cephalexin HCl 500 mg 08/19/25 17:00 08/20/25 10:15 Cephalexin 500 Mg Capsule PO 500 mg Q6H ERIKA Administration Cyanocobalamin 1,000 mcg 08/20/25 09:00 09/30/25 10:14 Cyanocobalamin (Vitamin B-12) 1,000 Mcg Tablet PO 1,000 mcg DAILY ERIKA Administration Doxycycline Monohydrate 100 mg 08/19/25 21:00 08/20/25 10:14 Doxycycline Monohydrate 100 Mg Capsule PO 100 mg BID ERIKA Administration Folic Acid 1 mg 08/20/25 09:00 08/20/25 10:16 Folic Acid 1 Mg Tablet PO 1 mg DAILY ERIKA Administration Sertraline HCl 100 mg 08/20/25 10:00 08/20/25 10:17 Sertraline Hcl 100 Mg Tablet PO 100 mg DAILY ERIKA Administration Thiamine HCl 100 mg 08/20/25 10:00 08/20/25 10:14 Thiamine Hcl 100 Mg Tablet PO 100 mg DAILY ERIKA Administration Medical Decision Making Medical Decision Making [facility] Narrative: 80-year-old male with progressive dementia presents to the ER for evaluation of a self-inflicted wound to the right palm for the last 3 days. At baseline he clenches his fist and he seems to have caused a wound/laceration to the palm with his fingernails, continuing to keep his fists clenched despite some bleeding and drainage. He was uncooperative with care and fingers needed to be pried open using the assistance with staff. The wound was able to be cleansed with saline and Betadine solution. Wound is not amenable to lack repair, has a wide base, foul-smelling, not fluctuant, his entire palm is erythematous, macerated and irritated from his fist being clenched Labs are reassuring with no leukocytosis. He is not tachycardic or febrile here. We were able to open and clean the wound, use Xeroform around a Kerlix to keep the hand open slightly, this was then reinforced with additional gauze wrap. Patient ordered for oral antibiotics, will double cover. Attempted to call the patient's at 17:40 however there was no answer. Unable to confirm code status at this time. He did not arrive with most paperwork. Not comfortable discharge home given difficulty and wound care and wound management. Wound care consult placed. Will have case management see him for possible placement so he can get adequate wound care and treatment Differential Diagnosis Differential Diagnoses: The differential diagnosis associated with the presentation includes cellulitis, abscess, infection, tenosynovitis, low suspicion for open fracture Admission/Observation Consideration of admission/observation: Escalation of care including admission/observation considered Lab Data MDM Lab Attestation statement: I reviewed the patient's lab results. no leukocytosis 08/19/25 16:41 08/19/25 16:41 Labs: Lab Results 08/19/25 08/19/25 08/20/25 Range/Units 16:41 19:40 10:25 WBC 5.1 (4.8-10.8) X10*3/uL RBC 4.69 (4.60-5.80) X10*6/uL Hgb 14.4 (14.0-18.0) g/dl Hct 41.3 L (42.0-52.0) % MCV 88.1 (80.0-98.0) fL MCH 30.7 (27.0-33.0) pg MCHC 34.9 (31.0-36.0) g/dl RDW 12.9 (11.0-16.0) % Plt Count 170 (160-400) X10*3/uL MPV 9.1 L (9.4-12.4) fL Immature Gran % (Auto) 0.2 (0.0-0.4) % Neut % (Auto) 71.7 (45-73) % Lymph % (Auto) 19.6 L (20-40) % [place] % (Auto) 7.3 (2-11) % Eos % (Auto) 0.6 (0-4) % Baso % (Auto) 0.6 (0-2) % Lymph # (Auto) 1.0 L (1.2-4.9) X10*3/uL [place] # (Auto) 0.4 (0.1-1.2) X10*3/uL Eos # (Auto) 0.0 (0.0-0.4) X10*3/uL Baso # (Auto) 0.0 (0.0-0.2) X10*3/uL Abs Immat Gran (auto) 0.01 (0.00-0.03) X10*3/uL Absolute Neuts (auto) 3.6 (2.0-8.3) x10*3/uL Absolute Nucleated RBC 0.000 (0.0-0.012) X10*3/uL Nucleated RBC % (auto) 0.0 (0.0-0.2) /100WBC Sodium 143 (135-145) mmol/L Potassium 4.5 (3.3-5.1) mmol/L Chloride 104 (96-108) mmol/L Carbon Dioxide 29 (22-29) mmol/L Anion Gap 15 (12-20) BUN 18 H (9-16) mg/dL Creatinine 0.80 (0.5-1.4) mg/dL Estim Creat Clear Calc 52.9 Estimated GFR > 60 POC Glucose 71 (60-115) mg/dL Random Glucose 66 (60-115) mg/dL Calcium 9.3 (8.4-10.2) mg/dL Urine Color Yellow Urine Appearance Clear Urine pH 6.5 (5.0-9.0) Ur Specific [place] 1.020 (1.005-1.025) Urine Protein Negative (Neg-Trace) mg/dL Urine Glucose (UA) Negative (Negative) mg/dL Urine Ketones 15 (Negative) mg/dL Urine Blood Negative (Negative) Urine Nitrite Negative (Negative) Ur Leukocyte Esterase Trace H (Negative) Urine RBC 0-2 (0-2) /HPF Urine WBC 0-5 (0-5) /HPF Ur Squamous Epith Cells 3-5 (0-2) /HPF Urine Bacteria None Seen (None Seen) Hyaline Casts 0-2 (0-2) /LPF Independent Historian Clinical information obtained from an independent historian. History obtained from or confirmed by: EMS External Record Review External record reviewed: Outpatient record and Prior outpatient labs Tests considered The following testing was considered but not selected: xr hand considered, attempted but not tolerated. low suspicion for acute fracture. Prescription Management I considered prescription management with: Pain Medication and Antibiotic Chronic Conditions Patient?s care impacted by: Other (advanced dementia) Social Determinants Patient?s care significantly limited by Social Determinants of Health including: Problems related to primary support group and Other Social Determinant of Health Critical Care Time Critical Care Time Critical Care Time: No Discharge Plan Discharge Clinical Impression: Palmar space infection of right hand Patient Disposition: Home, Self-Care Additional Instructions: Topical Wound Care Recommendations: Right Hand - Cleanse with normal saline or PH balanced wipes, dry well. Apply Durafiber AG to wound bed cover with foam or gauze dressing to pad area. Secure with wrap. Change every other day. Recommend outpt provider follow up for nail trimming. Recommend outpt follow up to wound clinic if wound does not show signs of healing over the next 2 weeks. Prescriptions: No Action sertraline 100 mg tablet 100 mg PO DAILY cyanocobalamin (vitamin B-12) 1,000 mcg tablet 1,000 mcg PO DAILY thiamine HCl (vitamin B1) 100 mg tablet 100 mg PO DAILY folic acid 1 mg tablet 1 mg PO DAILY rosuvastatin 20 mg tablet 20 mg PO DAILY quetiapine 300 mg tablet 150 mg PO BEDTIME Referrals: [facility] [Outside] Print Language: Romansh
[2025-08-19 16:46] LABS: MANUAL DIFF FLAG NO
[2025-08-19 16:50] LABS: Hematocrit 41.3 % (42.0-52.0); Hemoglobin 14.4 g/dl (14.0-18.0); Imm Gran Abs Auto 0.01 X10*3/uL (0.00-0.03); Imm Gran Pct Auto 0.2 % (0.0-0.4); Lymphocytes Absolute Auto 1.0 X10*3/uL (1.2-4.9); Mean Corpuscular HGB Conc 34.9 g/dl (31.0-36.0); Mean Corpuscular Hemoglobin 30.7 pg (27.0-33.0); Mean Corpuscular Volume 88.1 fL (80.0-98.0); NRBC Abs Auto 0.000 X10*3/uL (0.0-0.012); NRBC Pct Auto 0.0 /100WBC (0.0-0.2); Platelet Count 170 X10*3/uL (160-400); Red Blood Count 4.69 X10*6/uL (4.60-5.80); White Blood Count 5.1 X10*3/uL (4.8-10.8)
[2025-08-19 17:00] LABS: Anion Gap 15 (12-20); Blood Urea Nitrogen 18 mg/dL (9-16); Calcium 9.3 mg/dL (8.4-10.2); Carbon Dioxide 29 mmol/L (22-29); Chloride 104 mmol/L (96-108); Creatinine Clr Calc Pharmacy 52.9; Estimated Glomerular Filt Rate > 60; Potassium 4.5 mmol/L (3.3-5.1); Sodium 143 mmol/L (135-145)
[2025-08-19 19:07] VITALS: BP 130/56; PULSE 72; RESP 19; TEMP 36.6; O2SAT 100
[2025-08-19 19:49] LABS: Appearance Urine Clear; Glucose Urine UA Negative (Negative); PH 6.5 (5.0-9.0); Specific Gravity - Urine 1.020 (1.005-1.025); UMIC TRIGGER UACC YES
--- NOTE | 2025-08-19 22:58 | MHC.CM.ED ---
CM attempted to meet with patient. Pt has advanced dementia and is non-verbal. Makes sounds and repetitive speech. Nonsensical rambling. Pt is not mobile. , Ruma Garcia ([phone]) tells CM that he has taken a down hill turn over the past month. He does have some behaviors. He has a self inflected wound on his R palm due to clenching his fist and digging his finger nails into his palm, causing a wound. Pt does have a walker, but is not ambulating presently. Pt has a weekly KNOCK OUT HAND for 2 hours so can run errands. is interested in Wound care consult and OT consult to make recommendations to prevent clenching behaviors. Awaiting Urine ? UTI. tells CM that her has had a Hospice consult with [facility] and thinks he will sign on to Hospice in 3 weeks. She plans on caring for him at home. CM will try to verify this via [facility]. No VNA referrals pending verification of hospice and wound care recommendations. Pt will remain overnight and will D/C home with possible services for wound care if needed.
[2025-08-20 05:55] VITALS: BP 115/67; PULSE 67; RESP 18; TEMP 36.3; O2SAT 97
--- NOTE | 2025-08-20 07:58 | PC.NURSE ---
Pt has had OT visit this am. OT states that dressing on right hand is helpful as is for positioning. pt mumbling to himself constantly. does not appear to be in distress. awaits wound care consultatnt.
--- NOTE | 2025-08-20 08:44 | PC.NURSE ---
full bed bath. no wounds noted. some bruising/redness right thigh. may be a rash. pt is mumbling constantly. new purewhick placed.
--- NOTE | 2025-08-20 09:58 | PHA.MEDREC ---
Pharmacy Consult ? Medication Reconciliation Pharmacy has reviewed the medication reconciliation done by nursing. Also called and spoke to Ruma [phone] to confirm medication list. Per Ruma, patient is not taking baclofen anymore because it caused excessive drowsiness and not helping, and his dose of quetiapine is 150 mg at bedtime.
[2025-08-20 10:28] LABS: Glucose, Whole Blood 71 mg/dL (60-115)
--- NOTE | 2025-08-20 11:59 | PC.NURSE ---
late entry for am. Pt eagerly ate all of pureed breakfast tray and had POC of 71 even after taking meds crushed with applesauce. no difficulty swallowing and is a full feed. Pure whick replaced, given bedbath and repositioned/new linens. skin integrity is good. dsg left hand is CDI
--- NOTE | 2025-08-20 12:11 | HO.WOUND ---
Wound Consult: Initial 80yr old? male admitted to [facility] [place] 08[place]19[place]25 - See progress notes and H&P for detailed history.? Wound consult placed for Right Hand Injury.? Patient is not able to communicate his needs or have clear conversation. He was often mumbling and or talking nonsensical however when trying to assess his right hand he was angry and resistive to my assessment. With the assist of direct care team I was able to assess his hand and is detailed below. The right hand is noted for one open lesion on the palm. It is red and clean tissue - it appears as hypergranulation tissue. The nails specifically the index finger are noted to be long and rough edges. I recommend they be clipped and filed for smoothness to minimize trauma to his palm. He has a strong clenched quality control specialist and appears to have his hand contracted to that position at all times. It appears to cause him pain when trying to extend his fingers for assessment. Etiology: ??Appreas to be a traumatic injury due to nails digging into skin in contracted position Measurements: 2cm x 0.8cm x 0.2cm Wound Bed: red clean moist tissue - friable in appearance suspect hypergranulation tissue Drainage / Odor: None noted Edges: ? well defined [place] wound: ?intact No Induration, Fluctuance or Warmth noted Pain: reports pain when assessment attempted Goals of Treatment: ?Trim nail and file to smooth - Durafiber for moisture management and cover dressing for padding and protection - OT follow up to help with contracture. Recommendations: Right Hand - Cleanse with normal saline or PH balanced wipes, dry well. Apply Durafiber AG to wound bed cover with foam or gauze dressing to pad area. Secure with wrap. Change every other day. Recommend outpt provider follow up for nail trimming. Recommend outpt follow up to wound clinic if wound does not show signs of healing over the next 2 weeks. Re-consult wound care Nurse for wound deterioration or wound changes.
--- NOTE | 2025-08-20 13:50 | MHC.CM.ED ---
Patient remains in ER overflow. OT eval completed. Home OT recommended. Wound consult completed. Wound recommendations made. Received notification patient is active with [facility] for PT. [facility] requested to add SN and OT. Updated F2F added. Spoke with patient's , Ruma, via telephone at [phone]. Ruma states she has a Palliative Care informational meeting scheduled with [facility] in 3 weeks. Ruma is fine with keeping that meeting at the same time. Not interested in moving it up. Ruma agreeable to patient returning home with resumption of [facility] with additional services. [facility] LANDA booked for 430pm. Med nec with chart. Patient, Ruma, Nichelle RN and Trish DENISE aware. Continue to monitor for d/c needs.
[2025-08-20 15:31] VITALS: BP 138/74; PULSE 79; RESP 20; TEMP 36.7; O2SAT 96
[2025-08-20 17:21] VITALS: BP 138/74; PULSE 79; RESP 20; TEMP 36.7; O2SAT 96
== END 2025-08-20 17:22 | disposition home or self-care (01) ==
PROVIDERS: Physician Assistant; Emergency Provider Emergency Medicine; PCP Internal Medicine
DX: L08.89 Other specified local infections of the skin and subcutaneous tissue (principal); G30.9 Alzheimer's disease, unspecified; F02.818 Dementia in other diseases classified elsewhere, unspecified severity, with other behavioral disturbance; Z79.899 Other long term (current) drug therapy
CPT/HCPCS: 36415; 80048; 81001; 82947; 85025; 99284